=== PATIENT | female | born 1950 | race Caucasian/White ===

== ENCOUNTER 2016-10-16 12:41 | Inpatient (IN) | payer MEDICARE, OTHER ==
[~2016-10-16] VITALS: Ht 167.6 cm; Wt 67.8 kg
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
[~2016-10-16 12:41] MED LIST: ABILIFY10 MG PO; AMOXIL500 MG PO; ARISTADA662 MG/2.4 IM; BRIN10TA PO; CEFUROXIME AXE250 MG PO; CLONAZEPAM1 MG PO; ESKALITH300 M1 PO; INVEGA6 MG PO; KLONOPIN1 MG PO; LITHIUM CARBON300 MG PO; LITHIUM PO; OLANZAPINE5 MG PO; VITAMIN D50000 I3 PO; VRAYLAR PO
[2016-10-16 12:55] VITALS: BP 156/88
[2016-10-16] MEDS ORDERED: LITHIUM CARB300 MG PO (13:02)
[2016-10-16 13:26] LABS: BILIRUBIN NEGATIVE (NEGATIVE); BLOOD TRACE-INTACT (NEGATIVE); CLARITY SL CLOUDY (CLEAR); COLOR YELLOW (YELLOW); GLUCOSE NEGATIVE (NEGATIVE); KETONE NEGATIVE (NEGATIVE); NITRITE NEGATIVE (NEGATIVE); PH 5.5 (5.0-9.0); PROTEIN NEGATIVE (NEGATIVE); UROBILINOGEN 0.2 E.U./dl (0.2-1.0)
[2016-10-16 13:27] LABS: LEUKO ESTERASE 1+ (NEGATIVE)
[2016-10-16 13:34] LABS: URINE AMPHETAMINES < 1000 (1000ng/ml); URINE BARBITURATES < 200 (200ng/ml); URINE COCAINE < 300 (300ng/ml)
[2016-10-16 13:36] LABS: URINE REFLEX COMMENT YES (NO)
[2016-10-16 13:37] LABS: BACTERIA 1+; EPITHELIAL CELLS 0-2; MUCOUS TRACE
[2016-10-16 13:57] LABS: BASO % 0.3 % (0.0-1.0); EOS # 0.1 10*3/uL (0.0-0.4); EOS % 0.8 % (1.0-4.0); HEMATOCRIT 49.8 % (37.0-47.0); HEMOGLOBIN 15.3 g/dl (12.0-16.0); LYMPH # 1.5 10*3/uL (1.3-4.4); LYMPH % 15.1 % (27.0-41.0); MEAN CELL VOLUME 101.6 fl (81.0-99.0); MEAN CORPUSCULAR HGB 31.2 pg (27.0-31.0); MEAN CORPUSCULAR HGB CONC 30.7 g/dl (33.0-37.0); MEAN PLATELET VOLUME 12.1 fl (9.6-12.3); MONO # 0.9 10*3/uL (0.1-1.0); MONO % 9.4 % (3.0-9.0); NEUT # 7.4 10*3/uL (2.3-7.9); NEUT % 74.2 % (47.0-73.0); PLATELET COUNT AUTOMATED 285 10*3/uL (130-400); WHITE BLOOD COUNT 9.9 10*3/uL (4.8-10.8)
[2016-10-16 14:18] LABS: BUN 18 mg/dl (7-24); CARBON DIOXIDE 30 mmol/L (21-32); CHLORIDE 116 mmol/L (98-107); EST GLOM FILT AFRICAN AMERICAN 42 ml/min; GLUCOSE 131 mg/dL (65-99); POTASSIUM 4.2 mmol/L (3.5-5.1); SODIUM 152 mmol/L (136-145)
[2016-10-16 14:30] LABS: TROPONIN I < 0.015 ng/ml (<0.5)
[2016-10-16 17:35] VITALS: BP 112/80
[2016-10-16] MEDS ORDERED: ARIPIPRAZOLE10 MG PO (17:48)
[2016-10-16] MEDS ORDERED: CLONAZEPAM1 MG PO (17:48)
[2016-10-16] MEDS ORDERED: OLANZAPINE5 MG PO (17:49)
[2016-10-16 20:00] VITALS: BP 135/75
[2016-10-17] VITALS: BP 104/58
[2016-10-17 00:45] LABS: CKMB 0.8 ng/ml (0.5-3.6); CPK 35 U/L (26-192)
[2016-10-17 00:46] LABS: TROPONIN I < 0.015 ng/ml (<0.5)
[2016-10-17 06:33] LABS: HEMOGLOBIN A1c 5.7 % (4.8-5.6)
[2016-10-17 06:37] LABS: BASO % 0.5 % (0.0-1.0); EOS # 0.2 10*3/uL (0.0-0.4); EOS % 2.1 % (1.0-4.0); HEMATOCRIT 44.3 % (37.0-47.0); HEMOGLOBIN 13.6 g/dl (12.0-16.0); LYMPH # 1.9 10*3/uL (1.3-4.4); LYMPH % 24.1 % (27.0-41.0); MEAN CELL VOLUME 101.4 fl (81.0-99.0); MEAN CORPUSCULAR HGB 31.1 pg (27.0-31.0); MEAN CORPUSCULAR HGB CONC 30.7 g/dl (33.0-37.0); MEAN PLATELET VOLUME 12.4 fl (9.6-12.3); MONO # 0.7 10*3/uL (0.1-1.0); MONO % 9.4 % (3.0-9.0); NEUT # 4.9 10*3/uL (2.3-7.9); NEUT % 63.4 % (47.0-73.0); PLATELET COUNT AUTOMATED 244 10*3/uL (130-400); RED BLOOD COUNT 4.37 10*6/uL (4.10-5.10); WHITE BLOOD COUNT 7.8 10*3/uL (4.8-10.8)
[2016-10-17 06:39] LABS: ALBUMIN 3.7 gm/dl (3.1-4.5); BILIRUBIN, TOTAL 0.4 mg/dl (0.2-1.0); CKMB 0.7 ng/ml (0.5-3.6); CPK 32 U/L (26-192); FREE T4 1.02 ng/dl (0.76-1.46); MAGNESIUM 2.5 mg/dL (1.5-2.1); PHOSPHOROUS 2.7 mg/dL (2.5-4.9); POTASSIUM 3.7 mmol/L (3.5-5.1)
[2016-10-17 06:44] LABS: THYROID STIM HORMONE (HS) 1.36 uIU/ml (0.358-4.75); TROPONIN I < 0.015 ng/ml (<0.5)
[2016-10-17 07:03] LABS: FOLIC ACID 8.5 ng/mL (>5.38)
[2016-10-17 07:23] LABS: INTERNATIONAL NORM RATIO 1.1 (2.0-3.5); PROTHROMBIN TIME 11.8 SECONDS (9.0-12.4)
[2016-10-17 08:00] VITALS: BP 126/70
[2016-10-17 12:00] VITALS: BP 148/67
[2016-10-17 12:22] LABS: CKMB 0.6 ng/ml (0.5-3.6); CPK 32 U/L (26-192)
[2016-10-17 12:23] LABS: TROPONIN I < 0.015 ng/ml (<0.5)
[2016-10-17 16:00] VITALS: BP 107/66
[2016-10-17 20:00] VITALS: BP 126/65
[2016-10-18] VITALS: BP 137/79
[2016-10-18 08:00] VITALS: BP 118/76
[2016-10-18 12:00] VITALS: BP 133/70
[2016-10-18] MEDS ORDERED: ABILIFY15 MG PO (12:16)
[2016-10-18] MEDS ORDERED: BRIN10TA PO (14:47)
[2016-10-18] MEDS ORDERED: ARISTADA662 MG/2.4 IM (14:52)
[2016-10-18] MEDS ORDERED: VITAMIN D50000 I3 PO (14:55)
[2016-10-29] MEDS ORDERED: ROZEREM8 MG PO (07:36)
[2016-10-29] MEDS ORDERED: ABILIFY15 MG PO (07:36)
[2016-10-29] MEDS ORDERED: ARISTADA662 MG/2.4 IM (07:36)
[2016-10-29] MEDS ORDERED: MIRTAZAPINE15 M2 PO (07:36)
[2016-10-29] MEDS ORDERED: VITAMIN D50000 I3 PO (07:36)
[2016-11-06] MEDS ORDERED: REMERON45 M1 PO (15:44)
[2016-12-01] MEDS ORDERED: ATIVAN1 MG PO (14:02)
[2016-12-03] MEDS ORDERED: ASPIRIN ADULT L81 M2 PO (17:17)
[2016-12-03] MEDS ORDERED: ELIQUIS5 M1 PO (17:17)
[2016-12-03] MEDS ORDERED: COREG3.125 MG PO (17:17)
[2016-12-03] MEDS ORDERED: SIMVASTATIN40 MG PO (17:17)
== END 2016-10-18 12:58 | disposition home health service (06) | DRG 682 ==
LOC: ED 12:41 → 4E 15:20 → EDHOLD 15:20 → 4E 16:36
PROVIDERS: Emergency Medicine; Hospitalist
DX: N17.0 Acute kidney failure with tubular necrosis (principal); G93.41 Metabolic encephalopathy; E87.0 Hyperosmolality and hypernatremia; N39.0 Urinary tract infection, site not specified; F31.9 Bipolar disorder, unspecified; F41.9 Anxiety disorder, unspecified; E55.9 Vitamin D deficiency, unspecified; E78.5 Hyperlipidemia, unspecified; Z98.890 Other specified postprocedural states; Z82.49 Family history of ischemic heart disease and other diseases of the circulatory system; Z79.899 Other long term (current) drug therapy

== ENCOUNTER 2017-06-26 15:18 | Emergency (ER) | payer MEDICARE, MEDICAID ==
[~2017-06-26] VITALS: Ht 167.6 cm; Wt 52.6 kg
[~2017-06-26 15:18] MED LIST changes: +ABILIFY15 MG PO; +ARIPIPRAZOLE10 MG PO; +ASPIRIN ADULT L81 M2 PO; +ATIVAN1 MG PO; +COREG3.125 MG PO; +ELIQUIS5 M1 PO; +LITHIUM CARB300 MG PO; +MIRTAZAPINE15 M2 PO; +REMERON45 M1 PO; +ROZEREM8 MG PO; +SIMVASTATIN40 MG PO
[2017-06-26 15:56] LABS: BASO # 0.1 10*3/uL (0.0-0.1); BASO % 0.4 % (0.0-1.0); EOS % 0.1 % (1.0-4.0); HEMATOCRIT 49.6 % (37.0-47.0); HEMOGLOBIN 15.9 g/dl (12.0-16.0); LYMPH # 1.9 10*3/uL (1.3-4.4); LYMPH % 15.7 % (27.0-41.0); MEAN CELL VOLUME 95.8 fl (81.0-99.0); MEAN CORPUSCULAR HGB 30.7 pg (27.0-31.0); MEAN CORPUSCULAR HGB CONC 32.1 g/dl (33.0-37.0); MEAN PLATELET VOLUME 12.3 fl (9.6-12.3); MONO # 1.2 10*3/uL (0.1-1.0); MONO % 9.5 % (3.0-9.0); NEUT # 9.1 10*3/uL (2.3-7.9); PLATELET COUNT AUTOMATED 235 10*3/uL (130-400); RED BLOOD COUNT 5.18 10*6/uL (4.10-5.10); RED CELL DISTRI WIDTH 14.2 % (0-14.5); WHITE BLOOD COUNT 12.2 10*3/uL (4.8-10.8)
[2017-06-26 16:13] LABS: ALBUMIN 4.7 gm/dl (3.1-4.5); ALKALINE PHOSPHATASE 160 U/L (45-117); BUN 30 mg/dl (7-24); CHLORIDE 113 mmol/L (98-107); CREATININE 1.71 mg/dL (0.55-1.02); POTASSIUM 4.3 mmol/L (3.5-5.1); SGOT/AST 21 IU/L (3-35); SGPT/ALT 19 U/L (12-78); SODIUM 146 mmol/L (136-145); TOTAL PROTEIN 8.2 gm/dL (6.4-8.2)
[2017-06-26 16:14] LABS: ETHYL ALCOHOL < 3.0 mg/dl (<3)
[2017-06-26 16:21] LABS: THYROID STIM HORMONE (HS) 0.701 uIU/ml (0.358-4.75)
[2017-06-26 16:24] LABS: ACETAMINOPHEN (TYLENOL) < 2.0 ug/ml (10-30)
[2017-06-26 18:11] VITALS: BP 118/81
[2017-06-26 19:24] LABS: BILIRUBIN NEGATIVE (NEGATIVE); BLOOD 1+ (NEGATIVE); CLARITY CLEAR (CLEAR); COLOR YELLOW (YELLOW); GLUCOSE NEGATIVE (NEGATIVE); KETONE NEGATIVE (NEGATIVE); LEUKO ESTERASE NEGATIVE (NEGATIVE); NITRITE NEGATIVE (NEGATIVE); PH 5.5 (5.0-9.0); UROBILINOGEN 0.2 E.U./dl (0.2-1.0)
[2017-06-26 19:31] LABS: BACTERIA 1+; EPITHELIAL CELLS 0-2
[2017-06-26 19:33] LABS: URINE AMPHETAMINES < 1000 (1000ng/ml); URINE BARBITURATES < 200 (200ng/ml); URINE BENZODIAZEPINES < 200 (200ng/ml); URINE CANNABINOIDS (THC) < 50 (50ng/ml); URINE COCAINE < 300 (300ng/ml); URINE METHADONE < 300 (300ng/ml); URINE OPIATES < 300 (300ng/ml)
[2017-06-26 19:38] LABS: URINE PHENCYCLIDINE < 25 (25ng/ml)
[2017-06-27] MEDS ORDERED: DITROPAN XL5 MG PO (15:02)
[2017-06-27] MEDS ORDERED: KEFLEX500 M1 PO (15:02)
== END 2017-06-27 13:35 | disposition home health service (06) ==
LOC: ED 15:18
PROVIDERS: Physician Assistant
DX: F23 Brief psychotic disorder (principal); E03.9 Hypothyroidism, unspecified; E78.5 Hyperlipidemia, unspecified; N18.9 Chronic kidney disease, unspecified; F31.9 Bipolar disorder, unspecified

== ENCOUNTER 2017-06-27 13:15 | Inpatient (IN) | payer MEDICARE, MEDICAID ==
[~2017-06-27] VITALS: Ht 167.6 cm; Wt 52.6 kg
--- NOTE | ~2017-06-27 | WRIGHTHP ---
[place], [place] PATIENT HISTORY AND PHYSICAL EXAM NAME: ORLY BABCOCK [facility] #: [id number] UNIT #: [id number] ROOM: 315 DOCTOR: EBER CROCKETT MD BIRTHDATE: [birth year] DOS: 06/28/2017 CHIEF COMPLAINT: "I started hearing voices. I have been just stressed out. I do not know what is happening"s HISTORY OF PRESENT ILLNESS: This is a 66-year-old white female who is well known to us due to multiple admissions to the psychiatric unit. The patient presented to the emergency room at [facility] with a chief complaint of being increasingly depressed and and hearing little people for the last couple of weeks. This despite the fact that the patient has been compliant with her Aristada and last received her dose of Aristada on June 11. She endorses consistent hallucinations, voices commenting constantly on what she is doing. The voices do keep her up at night and they interfere with her ability to enjoy life. She has noted poor sleep and appetite, energy, anhedonia, hopeless, helpless feelings, crying spells, and inability to cope. She is readmitted to the [facility] now to rule out further organic factors to attempt to stabilize on medication and to return to the least restrictive environment when psychiatrically stable. PAST MEDICAL HISTORY: Remarkable for chronic kidney disease, hyperlipidemia, hypothyroidism, pulmonary emboli, seizure disorder, vitamin D deficiency and a long history of schizoaffective disorder. MENTAL STATUS: The patient is alert and oriented with some time gaps. Mood does seem to be depressed with anxious overtones. She endorses consistent auditory hallucinations. She hears voices, they comment constantly on what she is doing. Memory has some gaps. DIAGNOSIS: Schizoaffective disorder. PLAN: Given the fact that she relapsed, well compliant with the Aristada, I will go ahead and discontinue it as this does not seem to be effective at preventing the psychosis from recurring. I will start Risperdal 1 mg twice daily. At this point, I will load with either Risperdal Consta or Invega Sustenna once I know she is tolerating the Risperdal well. I will start her on Remeron 15 mg at bedtime to deal with the depressive component, engage her in individual and alvarez milieu activity and determine the least restrictive environment to which she can be discharged back to. [place], [place] PATIENT HISTORY AND PHYSICAL EXAM NAME: ORLY BABCOCK UNIT #: [id number] ROOM: [facility] DOCTOR: EBER CROCKETT MD BIRTHDATE: [birth year] EBER CROCKETT MD CM:HISPHYS:PATIENT HISTORY AND PHYSICAL EXAMINATION 3 5 EBER CROCKETT MD 06/28/17915 interface
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
--- NOTE | ~2017-06-27 | PR ---
[place], [place] PROGRESS NOTE NAME: ORLY BABCOCK [facility] #: [id number] UNIT #: [id number] ROOM: 315 DOCTOR: RIGO FLORES BIRTHDATE: [birth year] DOS: 06/29/2017 CHIEF COMPLAINT: "Good morning." SUMMARY OF VISIT: The patient was assessed in her room where she engaged readily in conversation. Good eye contact. Her only voiced complaint is about her mouth. She stuck out her tongue. She has a little taste bud inflammations. I asked her if she had been eating a lot of acidic foods like tomatoes, she did state that she has been having eating a lot of citrus type foods, so she definitely has a little bit of those little taste bud blisters on the tip of her tongue, which she keeps rubbing across her teeth and causing more irritation. She also states that she has sores inside her mouth that sometimes bleed and is making her uncomfortable. I did discuss with nursing. I asked them to follow up with the hospitalist to see if there is any kind of swish and spit or swish and swallow that we can use to kind to give her a little bit of comfort. MENTAL STATUS: Alert and oriented to person, place, I do not know about time. She definitely does have some time gaps. Mood, it seems depressed, but I do not see any kind of anxious overtones. Her affect is flat, blunted. She denies hallucinations with me, but nursing states that she did tell them that she still does see some short people occasionally or shapes now. So there has been some improvement. She is complaining of the EPS, extraperitoneal symptoms, shaking since the medication change. I did have her hold her hands out, I visually could not see any tremors or anything like that. I had her hold my hands, I could not feel anything like that. I wanted to keep an eye on it before changing a whole bunch of meds on her at this point in time, since she has significant medication adjustments within the last 24-48 hours. She does seem to be responding to the Risperdal per nursing that her hallucinations are not as concrete as they were before, they are more shadows, shapes that kind of stuff. She states that her sleep was poor last night, but did state that the floor was extra loud last night and that she was not really concerned about that. PLAN: Again, I am going keep her medications the way they are right now, I want the hospitalist for followup on her regarding the sores in her mouth, the blisters on her tongue, see if there is any kind swish and swallow or anything that we can do to help out with that discomfort. Dr. Wilson restarted her on her Risperdal. She was compliant with her Aristada, but it just was not effective, so he discontinued it. The plan is to either load her with Risperdal Consta or Invega Sustenna once we know that for sure that she is tolerating her Risperdal to see how she does over the next 24 hours. We will engage in individual and alvarez milieu therapy and go from there. [place], [place] PROGRESS NOTE NAME: ORLY BABCOCK UNIT #: [id number] ROOM: [facility] DOCTOR: RIGO FLORES BIRTHDATE: [birth year] TODD FLORES CNP CM:TARA [phone] RIGO FLORES 07/01/17705 interface
--- NOTE | ~2017-06-27 | CON ---
[place], [place] REPORT OF CONSULTATION NAME: ORLY BABCOCK [facility] #: [id number] UNIT #: [id number] ROOM: 315 DOCTOR: KING STALLINGS ED.D (JL) BIRTHDATE: [birth year] DOS: 07/01/2017 HISTORY OF PRESENT ILLNESS: The patient is a 66-year-old female referred by Dr. Wilson for competency evaluation. At the present time, this patient is on the [facility] at [facility]. She is and has two children. Her medical history is pertinent for chronic kidney disease, schizoaffective disorder, hyperlipidemia, hypothyroidism, pulmonary embolism, seizure disorder, and vitamin D deficiency. Her psych meds include Invega Sustenna, Exelon, Artane, and Pamelor. This patient was awake, alert and oriented in all 3 spheres. I have known this patient for many years and she recognized me immediately and was able to converse with no difficulty. Her physical condition has deteriorated over the years, but overall she does fairly well. She is clearly competent to make informed healthcare decisions at this time. She states she does reside with her and plans on returning there upon discharge. DIAGNOSES: Schizoaffective disorder. RECOMMENDATIONS: In my opinion, this patient is competent to make informed healthcare decisions. Thank you very much for this consult. KING STALLINGS ED.D CM:CONSTR:REPORT OF CONSULTATION 1057 07/01/17 2253 interface EBER WILSON MD
--- NOTE | ~2017-06-27 | PR ---
[place], [place] PROGRESS NOTE NAME: ORLY BABCOCK UNIT #: [id number] ROOM: 315 DOCTOR: EBER CROCKETT MD BIRTHDATE: [birth year] DOS: 06/30/2017 CHIEF COMPLAINT: "Did you see those little people out here?, they were keeping me up at night." SUMMARY OF THE VISIT: The patient was sitting at the edge of her bed. She had just gotten dressed and was getting ready to start the day. She engaged in conversation, reporting to me that she did not sleep well because there were people outside her room, little ones, making noise. Nurses concur that she was very consistent in this complaint throughout the evening last night and attempts to redirect were not met with much success. The patient did refuse her Remeron, stating that in the past when she took it she had significant side effects. She is compliant with all other aspects of her care. MENTAL STATUS: She is alert and oriented with some time gaps. Mood does still seem to be labile. Affect at times is inappropriate. She is grossly psychotic and delusional. She does have some term memory gaps. PLAN: I will maintain her current dose of Risperdal. I still may load her with Invega Sustenna given her episodic compliance with medicine. I will discontinue Remeron in lieu of Pamelor. We will obtain another consult with Dr. Villalobos. The patient has repeatedly been deemed incompetent, has been placed in a long term and has done so well with careful supervision, then the guardianship application is overturned, she returns home and she decompensates within months. This is such a repeated pattern that I wonder if there is something we can do to prevent this secular negative pattern from continuing. We will engage in individual and alvarez milieu activity with the plan to discharge to the least restrictive environment when stable. EBER CROCKETT MD CM:PNTRANS 2 40 EBER CROCKETT MD 06/30/17 1040 interface
--- NOTE | 2017-06-27 13:50 | NUR ---
PT ARRIVED ON THE UNIT VIA WHEELCHIAR WITH RN, SECURITY AND ESCORTING PT. PT ALERT TO PERSON,PLACE AND TIME. PT REPORTS AUDITORY AND VISUAL HALLUCINATIONS. WHILE COMPLETEING PT ADMISSION ASSESSMENT, PT LOOKS OUT THE WINDOW OF THE QUIET ROOM AND STATES "THOSE MED AREN'T ALLOWED IN MY ROOM ARE THEY?" WHEN QUESTIONED PT STATED "THOSE MEN SITTING OUT THERE ON THE SUITCASES?" PRESENTED REALITY PT WITH MINIMAL SUCCESS. PT DENIES ANY HOMICIDAL/SUICIDAL THOUGHTS. PT AMBULATORY THROUGHTOUT UNIT, GAIT STEADY. PT CONTINENT OF BOWEL AND BLADDER.
[2017-06-27 13:57] VITALS: BP 108/78
[2017-06-27 14:25] VITALS: BP 108/78
[2017-06-27] MEDS ORDERED: KEFLEX500 M1 PO (15:02)
[2017-06-27] MEDS ORDERED: DITROPAN XL5 MG PO (15:02)
--- NOTE | 2017-06-27 15:06 | NUR ---
ORLY BABCOCK a 66 year old F admitted via wheel chair from the EMERGENCY ROOM as a voluntary admission. Arrived on unit at 1350. ALLERGIES: NKA. Vital signs are: 97.7-98-18 108/78. The client signed the following forms with stated understanding: Authorization For The Release of Medical Information, Clothing List, Consent to Voluntary Admission and Hospitalization, Consent and Release Forms/Receipt of Rights, Acknowledgement of Advance Directive Information, Behavioral Health Consent Form, and Informed Consent of Medications. Admitted under the services of Dr. BON CORRAL,[facility]. A search was conducted and hazardous articles were removed. Client was oriented to the unit. ARMANI HORTON
--- NOTE | 2017-06-27 15:15 | NUR ---
PT DAUGHTER RACHELLE CALLED IN REQUESTING TO SPEAK WITH PT. WHEN ASKED IF SHE WOULD ACCEPT THE PHONE CALL PT STATED "I DON'T WANT TO TALK TO HER RIGHT NOW BECAUSE I HAVEN'T TALKED TO HER IN A LONG TIME AND IT UPSETS ME TO TALK TO HER". RACHELLE REQUESTING VISITING HOURS, NOTIFIFED PT OF DAUGHTER REQUESTING TO VISIT LATER PT STATED " THE REASON I DON'T TALK TO HER IS BEACUSE THE GAME ATTENDANT IN [place] DOESN'T LIKE HER." PT UNABLE TO ANSWER IF SHE WOULD LIKE TO VISIT WITH HER DAUGHTER LATER TODAY, WILL RE-APPROACH BEFORE VISITING HOURS.
--- NOTE | 2017-06-27 15:35 | NUR ---
ON UNIT TO ASSESS PT.
[2017-06-27 20:16] VITALS: BP 131/83
--- NOTE | 2017-06-27 21:16 | NUR ---
PATIENT COOPERATIVE AND PLEASANT WITH STAFF. PATIENT MEDICATION COMPLIANT. VOICES NO COMPLAINTS OF PAIN OR DISCOMFORT AT THIS TIME
--- NOTE | 2017-06-28 03:35 | NUR ---
24 HR chart check completed.
[2017-06-28 06:55] LABS: BASO % 0.1 % (0.0-1.0); EOS # 0.1 10*3/uL (0.0-0.4); EOS % 1.2 % (1.0-4.0); HEMOGLOBIN 14.6 g/dl (12.0-16.0); LYMPH # 1.3 10*3/uL (1.3-4.4); LYMPH % 16.9 % (27.0-41.0); MEAN CELL VOLUME 96.4 fl (81.0-99.0); MEAN CORPUSCULAR HGB 30.6 pg (27.0-31.0); MEAN CORPUSCULAR HGB CONC 31.7 g/dl (33.0-37.0); MEAN PLATELET VOLUME 12.7 fl (9.6-12.3); MONO # 0.7 10*3/uL (0.1-1.0); MONO % 8.7 % (3.0-9.0); NEUT # 5.7 10*3/uL (2.3-7.9); NEUT % 72.8 % (47.0-73.0); RED BLOOD COUNT 4.77 10*6/uL (4.10-5.10); WHITE BLOOD COUNT 7.8 10*3/uL (4.8-10.8)
[2017-06-28 06:59] LABS: PLATELET COUNT AUTOMATED 156 10*3/uL (130-400)
[2017-06-28 07:21] LABS: ALBUMIN 3.8 gm/dl (3.1-4.5); ALKALINE PHOSPHATASE 150 U/L (45-117); BUN 24 mg/dl (7-24); CHLORIDE 116 mmol/L (98-107); CHOLESTEROL 147 mg/dL (<200); CREATININE 1.07 mg/dL (0.55-1.02); HDL CHOLESTEROL 28 mg/dl (40-60); LDL CHOLESTEROL 95 mg/dL (9-159); POTASSIUM 4.1 mmol/L (3.5-5.1); SGOT/AST 25 IU/L (3-35); SGPT/ALT 23 U/L (12-78); SODIUM 150 mmol/L (136-145); TOTAL PROTEIN 7.4 gm/dL (6.4-8.2); TRIGLYCERIDES 121 mg/dl (<150); VLDL CHOLESTEROL 24 mg/dL (6-40)
[2017-06-28 07:28] LABS: THYROID STIM HORMONE (HS) 0.932 uIU/ml (0.358-4.75)
[2017-06-28 08:59] VITALS: BP 123/72
--- NOTE | 2017-06-28 09:03 | NUR ---
CONTACTED AT [phone] REGARDING PT ABNORMAL LABS FOR THIS AM. STATED "YES WE SAW THAT, WE MAY NEED TO PUT AN IV BACK IN HER". NO ORDERS RECEIVED AT THIS TIME.
--- NOTE | 2017-06-28 11:31 | NUR ---
ON UNIT TO ASSESS PT.
--- NOTE | 2017-06-28 13:43 | NUR ---
PT ALERT TO PERSON,PLACE,TIME AND SITUATION. PT MED COMPLIANT WIHTOUT DIFFICULTY. MED EDUCATION PROVIDED. PT MOOD IS DEPRESSED. PT CALM, RESTLESS AT TIMES, PACING THE HALLS. PT WITHDRAWN, MINIMAL INTERACTION WITH STAFF AND PEERS. PT DENIES ANY HOMICIDAL/SUICIDAL THOUGHTS. WHEN ASKED IF SHE IS SEENG ANYTHING OR HEARING VOICES, PT STATES "YES BUT I'M NOT ABLE TO MAKE OUT WHAT THEY ARE, THEY ARE JUST SHAPES." PT DENIES HEARING ANY VOICES AT THIS TIME. PT AMBULATORY THROUGHOUT UNIT, GAIT STEADY. PT CONTINENT OF BOWEL AND BLADDER. PT CONSUMED 75% OF BREAKFAST AND 100% OF LUNCH. PLAN IS TO ENCOURAGE PT TO VOICE ANY HALLUCIANTIONS OR DELUSIONS, PRESENT REALITY TO PT WITH EACH INTERACTION, MONITOR PT BEHAVIORS ON Q15 MN SAFTEY CHECKS.
[2017-06-28 20:00] VITALS: BP 107/60
--- NOTE | 2017-06-28 20:10 | NUR ---
PATIENT IN ROOM AND VOICED THAT SHE HAD AN EPISODE OF BEING SHAKY ON PREVIOUS SHIFT. SHE STATED THAT IT DIDN'T LAST LONG, BUT IT WAS NEW FOR HER. PATIENT SAID SHE WANTED TO TALK TO THE DOCTOR WHEN HE CAME BACK IN. PATIENT MEDICATION COMPLIANT. VOICES NO COMPLAINTS OF PAIN OR DISCOMFORT AT THIS TIME
--- NOTE | 2017-06-29 04:15 | NUR ---
24 HR chart check completed.
--- NOTE | 2017-06-29 05:46 | NUR ---
Q 15 MINUTE CHECKS MAINTAINED. SLEPT > 8 HRS THIS SHIFT
[2017-06-29 07:00] LABS: ALBUMIN 3.4 gm/dl (3.1-4.5); ALKALINE PHOSPHATASE 133 U/L (45-117); BUN 21 mg/dl (7-24); CHLORIDE 113 mmol/L (98-107); POTASSIUM 3.4 mmol/L (3.5-5.1); SGOT/AST 30 IU/L (3-35); SGPT/ALT 27 U/L (12-78); SODIUM 146 mmol/L (136-145); TOTAL PROTEIN 6.6 gm/dL (6.4-8.2)
[2017-06-29 08:05] VITALS: BP 117/76
--- NOTE | 2017-06-29 08:10 | NUR ---
UPDATED DR. MUNOZ AT [phone] REGARDING PT LABS. PER CONTINUE TO ENCOURAGE PO INTAKE OF FLUIDS. NO FURTHER ORDERS AT THIS TIME.
--- NOTE | 2017-06-29 10:55 | NUR ---
ON UNIT TO ASSESS PT.
--- NOTE | 2017-06-29 17:54 | NUR ---
PT ALERT TO PERSON,PLACE AND TIME. PT MED COMPLIANT WITHOUT DIFFICULTY. PT MOOD IS STABLE. WHEN ASKED IF PT IS HAVING ANY VISUAL HALLUCINATIONS, PT STATED "I'M SEEING COLORS, LINES AND SHAPES." PT DENIES HEARING VOICES AT THIS TIME. NO DELUSIONS NOTED. PT DENIES ANY HOMICIDAL/SUICIDAL THOUGHTS. PT AMBULATORY THROUGHOUT UNIT, GAIT STEADY. PT CONTINENT OF BOWEL AND BLADDER. PLAN IS TO MONITOR PT BEAHVIORS ON Q15 MIN SAFETY CHECKS, ENCOURAGE PT TO VOICE ANY HALLUCINATIONS OR DELUSIONS, ENCOURAGE PT TO PARTICIPATE IN GROUPS/ACTIVITIES.
[2017-06-29 20:00] VITALS: BP 136/78
--- NOTE | 2017-06-29 21:50 | NUR ---
PT WAS COMPLIANT WITH ALL HS MEDICATIONS EXCEPT REMERON. STATED THE LAST TIME SHE TOOK IT, IT DIDN'T AGREE WITH HER & SHE WOKE UP IN A FUNNY MOOD.
--- NOTE | 2017-06-29 22:04 | NUR ---
24 HR chart check completed.
--- NOTE | 2017-06-30 06:23 | NUR ---
PT HAS BEEN OBSERVED ON Q 15 MIN CHECKS & HAS SLEPT QUIETLY THROUGHOUT THE SHIFT PAST 2300.
[2017-06-30 07:01] LABS: ALKALINE PHOSPHATASE 150 U/L (45-117); BUN 19 mg/dl (7-24); CHLORIDE 117 mmol/L (98-107); CREATININE 0.96 mg/dL (0.55-1.02); MAGNESIUM 2.2 mg/dL (1.5-2.1); POTASSIUM 4.1 mmol/L (3.5-5.1); SGOT/AST 35 IU/L (3-35); SGPT/ALT 34 U/L (12-78); SODIUM 150 mmol/L (136-145); TOTAL PROTEIN 7.3 gm/dL (6.4-8.2)
[2017-06-30 07:52] VITALS: BP 136/82
--- NOTE | 2017-06-30 11:36 | NUR ---
Exercise/June Facts and Trivia Exercise helps with mobility,circulation and concentration to stay on task. Trivia also helps with concentration, thinking and socialization Patient did attend group as well as participated. Patient followed instruction during exercise well but during trivia was confused with questions. But she shared several memories of june.
--- NOTE | 2017-06-30 14:22 | NUR ---
PHYSICAL THERAPY PAtient evaluated on 3, full evaluation to follow. Continue with PT as per plan of care with fall and decreased balance precautions. Home with 21/04 family assist and complete home health services with progression to out patient PT prn. PAtient is moderate compelxiuty via chart rview, tests and evaluation [id number]. thank you for this referral. Racheal Stevens ,PT
--- NOTE | 2017-06-30 15:37 | NUR ---
DR STALLINGS NOTIFIED OF CONSULT FOR COMPETENCY EVAL.
--- NOTE | 2017-06-30 15:57 | NUR ---
Occupational Therapy evaluation completed on 3 this date with full eval to follow.Precautions include 3N, recent delusional behavior, but none during the evaluation, slow ROP, low complexity level 96300. Recomemmend return home with w/ supervision. Thank you for this referral. Sonia Rodarte OTR/l
--- NOTE | 2017-06-30 17:33 | NUR ---
DR. AGUILAR ON UNIT TO SEE PATIENT.
[2017-06-30 20:00] VITALS: BP 135/72
--- NOTE | 2017-06-30 22:22 | NUR ---
24 HR chart check completed.
--- NOTE | 2017-07-01 05:04 | NUR ---
PT HAS SLEPT QUIETLY THROUGHOUT THE SHIFT PAST 2229 WITH 1 BRIEF AWAKENING TO GO TO THE BATHROOM.
[2017-07-01 07:44] LABS: BUN 18 mg/dl (7-24); CHLORIDE 116 mmol/L (98-107); CREATININE 1.07 mg/dL (0.55-1.02); POTASSIUM 4.3 mmol/L (3.5-5.1); SODIUM 150 mmol/L (136-145)
[2017-07-01 08:47] VITALS: BP 140/87
--- NOTE | 2017-07-01 10:53 | NUR ---
ON UNIT TO ASSESS PATIENT. PER , PATIENT IS COMPETENT.
--- NOTE | 2017-07-01 11:35 | NUR ---
INVEGA SUSTENNA 234MG GIVEN TO LEFT DELTOID AT THIS TIME PER ORDERS WITHOUT DIFFICULTY. PT TOLERATED WELL.
--- NOTE | 2017-07-01 11:56 | NUR ---
MANOLO SPRING ON UNIT TO ASSESS PATIENT. MADE AWARE OF NA LEVEL THIS MORNING. STATES WILL ENTER NEW ORDERS.
--- NOTE | 2017-07-01 11:59 | NUR ---
PHYSICAL THERAPY Mrs seen this AM 1:1 for her therapy session, and did very well. All transfrs were were CGA X 1, no LOB. Gait total 180' X 2, one sitting rest and CG X 1, no LOB. Working in gait balance with gait back wards, right and left side stepping, 360 turn with MIN PAPER GRADER X 1. End with act Ex to bilateral LE is sitting working all planes X 20 reps each, treatment time 26 min. MICHAELA ABAD BALLISTICS PROFESSOR.
--- NOTE | 2017-07-01 13:37 | NUR ---
Exercise/Bad Jokes and Slogans Benefits: Mobility,Flexability,Circulation,socialization,cognative skills Patient did attend group as well as participate. Patient followed along during exercise and stayed on task. Patient was some what quiet and withdrawn during the joke and slogans portion of group. Patient did attempt to answer questions several times showing confusion,redirected easily back to topics. This group helped the patient in her treatment goals to decrease H/I and stayin present day reality,with socialization
--- NOTE | 2017-07-01 16:19 | NUR ---
PT ALERT AND ORIENTED WITH PERIODS OF CONFUSIONS AND MEMORY GAPS NOTED. MOOD IS DEPRESSED WITH FLAT AFFECT. DENIES ANY HALLCINATIONS THIS SHIFT, STATES " NOT TODAY." UPON INTERACTIONS WITH PATIENT, PARANOID DELUSIONS HAVE BEEN NOTED. VERBALIZING THERE ARE "MEN TRYING TO KIDNAP ME AND HURT ME." REALITY PRESENTED WITH MODERATE EFFECT. REORIENTED WITH GOOD EFFECT. CALM AND COOPERATIVE WITH STAFF. ATTENDING AND PARTICIPATING IN GROUP THERAPIES ALL THROUGHOUT THE DAY. MEDICATION COMPLIANT WITHOUT DIFFICULTY. APPETITE GOOD FOR MEALS. IV RUNNING TO LEFT ARM AT THIS TIME WITHOUT DIFFICULTY.
[2017-07-01 20:18] VITALS: BP 122/76
--- NOTE | 2017-07-01 23:28 | NUR ---
24 HR chart check completed.
--- NOTE | 2017-07-02 05:05 | NUR ---
PT HAS SLEPT QUIETLY THROUGHOUT THE SHIFT PAST 2229 WITH 1 BRIEF AWAKENING TO GO TO THE BATHROOM. CONTINENT OF URINE. IV FLUIDS COMPLETED @ 0400.
[2017-07-02 06:54] LABS: BASO % 0.4 % (0.0-1.0); EOS # 0.2 10*3/uL (0.0-0.4); HEMATOCRIT 47.2 % (37.0-47.0); LYMPH # 2.1 10*3/uL (1.3-4.4); MEAN CELL VOLUME 95.7 fl (81.0-99.0); MEAN CORPUSCULAR HGB 30.4 pg (27.0-31.0); MEAN CORPUSCULAR HGB CONC 31.8 g/dl (33.0-37.0); MEAN PLATELET VOLUME 12.9 fl (9.6-12.3); MONO # 0.8 10*3/uL (0.1-1.0); MONO % 9.4 % (3.0-9.0); NEUT % 61.7 % (47.0-73.0); PLATELET COUNT AUTOMATED 184 10*3/uL (130-400); RED BLOOD COUNT 4.93 10*6/uL (4.10-5.10); RED CELL DISTRI WIDTH 14.3 % (0-14.5); WHITE BLOOD COUNT 8.1 10*3/uL (4.8-10.8)
[2017-07-02 07:25] LABS: BUN 18 mg/dl (7-24); CHLORIDE 113 mmol/L (98-107); CREATININE 0.95 mg/dL (0.55-1.02); POTASSIUM 3.7 mmol/L (3.5-5.1); SGOT/AST 26 IU/L (3-35); SGPT/ALT 34 U/L (12-78); SODIUM 146 mmol/L (136-145); TOTAL PROTEIN 7.4 gm/dL (6.4-8.2)
[2017-07-02 07:26] LABS: ALKALINE PHOSPHATASE 157 U/L (45-117)
[2017-07-02 08:02] VITALS: BP 134/80
--- NOTE | 2017-07-02 10:41 | NUR ---
PHYSICAL THERAPY Abbie seen this AM 1:1 for her therapy treatment, Pt was up in the day room. All transfers were CG X 1, no LOB. Gait total 185' X 2, with one sitting rest Pt said that she was getting tired. Working in gait balance with gait backwards, right and left side stepping, 360 turn with cueing for each with MOD RECEPTION X 1. Gait Pt into her bathroom, followed by up in the day room and end with act Ex to bilateral LE with verbal cueing of marching, LAQ's and ankle pumps working in 20 reps each, treatment time 28 min. MICHAELA ABAD AUTOMOBILE RACER.
--- NOTE | 2017-07-02 10:50 | NUR ---
07/01/17 Afternoon Cristy Clancy: Positive future Benefits; Self Esteem, socialization,cognative skills Patient did attend group but only participated when prompted.Patients focused on coloring her picture. Patient was redirected several times which was effective for a short time. Patient was also confused at times and would be reminded of what group was about. This was important in helping this patient with reality. no H/I was noted during group
--- NOTE | 2017-07-02 10:54 | NUR ---
SYLVIE ALLENNP ON UNIT TO ASSESS PT.
--- NOTE | 2017-07-02 13:01 | NUR ---
Exercise/Positivity This will help patient with her treatment plan to stay oriented to reality and socializing Patinted did attend group and participated as well. Patient stayed on task as well as stayed focused,joining in and verbalizing what to do to cope and keep positive. Patient needed no prompting,1:1 or redirection during group
--- NOTE | 2017-07-02 13:35 | NUR ---
PT APPROACHES NURSES STATING WHEN ASKED WHAT IS WORNG PT STATED "I'M AFRAID OF THAT REAL BIG KEN." ADVISED PT THAT HE IS IN HIS ROOM SO SHE IS SAFE TO GO INTO THE DINING ROOM TO SIT. PT STATED "BUT I HAVE TO PEE AND I DON'T WANT TO WALK DOWN THERE BY MYSELF." PT ESCORTED TO THE BATHROOM BY STAFF. NO FURTHER ISSUES NOTED.
--- NOTE | 2017-07-02 18:32 | NUR ---
PT ALERT TO PERSON,PLACE AND TIME. PT MED COMPLIANT WITHOUT DIFFICULTY. PT ANXIOUS AT TIMES. PT CALM, ISOALTIVE AT TIMES, ONLY SPEAKING WHEN SPOKEN TO. NO RESPONSE TO INTERNAL STIMULI THIS SHIFT, PT DENIES ANY HALLUCINATIONS OR DELUSIONS. PT DENIES ANY HOMICIDAL/SUICIDAL THOUGHTS. PT AMBULATORY, GAIT SLOW AND STEADY. PT CONTINENT OF BOWEL AND BLADDER. PLAN IS TO MONITOR PT BEHAVIORS ON Q15 MIN SAFTEY CHECKS, ENCOURAGE PT TO VOICE ANY HALLUCINATIONS OR DELUSIONS TO STAFF, PRESENT REALITY TO PT WITH EACH INTERACTION.
[2017-07-02 20:49] VITALS: BP 141/76
--- NOTE | 2017-07-03 04:34 | NUR ---
24 HR chart check completed.
--- NOTE | 2017-07-03 06:54 | NUR ---
PT SLEPT THROUGHOUT NIGHT WITH OUT INTURRUPTION TOTAL 8 HOURS. SOCALIZED WELL WITH PEER AT HS DENYING HALLUCINATIONS AT THIS TIME. MED COMPLIANT WITH OUT COAXING, IMPROVING MOOD LABILITY. CONTINIUE MED EDUCATION AND COPING SKILLS AT THIS TIME.
--- NOTE | 2017-07-03 07:56 | NUR ---
07/02/17 Afternoon BINGO Benefits patients with treatment plan goal to socialize, stay in present reality and participate in group Patient did attend group as well as participate. Patient is quiet and withdrawn,speaking out occasionaly. Patient acts as if she has no facial emotion,unsure how patient is reacting to things unless shes asked. Patient did very well playing [employer],staying on task
[2017-07-03 08:02] VITALS: BP 128/72
--- NOTE | 2017-07-03 08:49 | NUR ---
PHYSICAL THERAPY Abbie seen this AM 1:1 for her therapy session, Pt up in the day room. Transfers were independent, Gait total 185' X 2, one sitting rest and not as tired today as yesterdays gait. Working in gait balance with singel leg stand X 2, gait backwards, right and left side stepping, 360 turn, with MOD PROJECT INTERN X 1. End with act Ex to bilateral LE in sitting working all planes X 20 reps each with cueing for each Ex. Pt back up in the day room, treatment time 27 min. MICHAELA ABAD CORE DRIER.
[2017-07-03 09:29] LABS: BASO % 0.4 % (0.0-1.0); EOS # 0.1 10*3/uL (0.0-0.4); EOS % 0.9 % (1.0-4.0); HEMATOCRIT 44.9 % (37.0-47.0); HEMOGLOBIN 14.7 g/dl (12.0-16.0); LYMPH # 1.1 10*3/uL (1.3-4.4); LYMPH % 13.6 % (27.0-41.0); MEAN CELL VOLUME 96.6 fl (81.0-99.0); MEAN CORPUSCULAR HGB 31.6 pg (27.0-31.0); MEAN CORPUSCULAR HGB CONC 32.7 g/dl (33.0-37.0); MEAN PLATELET VOLUME 12.7 fl (9.6-12.3); MONO # 0.6 10*3/uL (0.1-1.0); MONO % 6.8 % (3.0-9.0); NEUT # 6.4 10*3/uL (2.3-7.9); NEUT % 77.9 % (47.0-73.0); PLATELET COUNT AUTOMATED 182 10*3/uL (130-400); RED BLOOD COUNT 4.65 10*6/uL (4.10-5.10); RED CELL DISTRI WIDTH 13.9 % (0-14.5); WHITE BLOOD COUNT 8.2 10*3/uL (4.8-10.8)
[2017-07-03 10:18] LABS: ALBUMIN 3.9 gm/dl (3.1-4.5); CREATININE 1.12 mg/dL (0.55-1.02); POTASSIUM 3.6 mmol/L (3.5-5.1); TOTAL PROTEIN 7.3 gm/dL (6.4-8.2)
--- NOTE | 2017-07-03 10:23 | NUR ---
PATIENT ASSISTED WITH HYGIENE AND DRESSING THIS AM. ALERT AND ORIENTED WITH PERIODS OF CONFUSION. DENIES ANY HALLUCINATIONS OR DELUSIONS. DENIES ANY SI/HI. STATES SHE IS FEELING BETTER. MEDICATION COMPLIANT WITHOUT DIFFICULTY. SIGN PLACE OUTSIDE OF ROOM FOR EASY IDENTIFICATION DUE TO HER FORGETTING WHICH ROOM IS HERS. NO BEHAVIORS NOTED. PLEASANT AND COOPERATIVE WITH STAFF. MOOD STILL MILDLY DEPRESSED WITH FLAT AFFECT. HAS BEEN SMILING AND INTERACTING POSITIVELY WITH PEERS THIS MORNING IN DAY ROOM. PARTICIPATING IN GROUP THERAPY THIS AM.
--- NOTE | 2017-07-03 12:09 | NUR ---
PATIENT VOICING PARANOID DELUSIONS THAT SOMEONE BECAUSE OF HER. EMOTIONAL SUPPORT PROVIDED WITH MINIMAL EFFECT. REFUSED LUNCH AFTER MULTIPLE ATTEMPTS. PATIENT WENT BACK TO ROOM TO LAY DOWN AND REST.
--- NOTE | 2017-07-03 13:26 | NUR ---
Exercise/Choices/Trivia This benefits the patient in her treatment plan goal,staying oriented to reality,socializing Patient did attend group as well as participated. Patient was dressing so missed the exercise portion of group but came to the latter part of group. Patient was quiet but did talk with others interacting with no apparent issues
[2017-07-03 20:25] VITALS: BP 130/74
--- NOTE | 2017-07-04 04:27 | NUR ---
24 HR chart check completed.
--- NOTE | 2017-07-04 07:28 | NUR ---
PT SLEPT THROUGHOUT NIGHT WITH NO INTURRUPTION. ISOLATIVE TO ROOM, DENIES HALLUCINATIONS BUT BEGINING TO DISPLAY ODD BEHAVIOR PICKING AT GROUND WITH HUNCHED OVER GAIT. ISOLATIVE TO ROM, REFUSING 1-1 SUSPICIOUS OF STAFF AND PEERS BUT MED COMPLIANT WITH COAXING. ALERT TO PERSON ONLY.
[2017-07-04 08:00] VITALS: BP 120/82
--- NOTE | 2017-07-04 08:01 | NUR ---
07/03/17 Afternoon BRUCE This group is helpful for patient to reach her treatment goal of socialization,staying oriented to reality Patient did attend group as well as participated. Patient does interact with others occasionally as she did in this group. Patient stayed on task and did laugh with others when joking with each other
--- NOTE | 2017-07-04 10:03 | NUR ---
PHYSICAL THERAPY Abbie seen this AM 1:1 for her therapy and improving but just needing cueing for all that we do. All transfers were CG X 1, no LOB. Gait total 200' X 2, CGA X 1, one sitting rest. Working in turns, stop/start gait slow but no LOB CGA X 1. End with going over her act Ex to bilateral LE of marching, LAQ's, and ankle pumps. Pt up in the day room at this time. MICHAELA ABAD DEVELOPMENT ENGINEER.
--- NOTE | 2017-07-04 16:39 | NUR ---
PT OBSERVED LEANING TO THE RIGHT MOST OF THE SHIFT. LEANING HAS WORSENED. SYLVIE LI NP NOTIFIED STATES WILL BE UP TO SEE PT.
--- NOTE | 2017-07-04 16:49 | NUR ---
VITALS TAKEN AT THIS TIME AND FOLLOWS: 99.3 O, 142/84, 18, 94% RA, BSG 125. AT BEDSIDE TO ASSESS PT, UPDATED ON PT VITALS, STATES WILL ENTER NEW ORDERS.
[2017-07-04 16:51] VITALS: BP 142/84
--- NOTE | 2017-07-04 16:55 | NUR ---
STATES PT TO BE DISCHARGED TO ICU AT THIS TIME TO CHANGE IN STATUS. NURSING SUPERANNUATION CLERK NOTIFIED. NOTIFIED, DISCHARGE ORDERS RECEIVED. NURSING SUPERANNUATION CLERK CALLED BACK AND STATES PT WILL GO TO ICU BED 3. KING, ON UNIT, UPDATED ON PT STATUS AND CURRENT SITUATION.
[2017-07-04 17:21] LABS: BASO % 0.2 % (0.0-1.0); HEMOGLOBIN 14.8 g/dl (12.0-16.0); LYMPH # 1.2 10*3/uL (1.3-4.4); LYMPH % 8.2 % (27.0-41.0); MEAN CELL VOLUME 94.5 fl (81.0-99.0); MEAN CORPUSCULAR HGB 30.4 pg (27.0-31.0); MEAN CORPUSCULAR HGB CONC 32.2 g/dl (33.0-37.0); MEAN PLATELET VOLUME 12.3 fl (9.6-12.3); MONO # 1.3 10*3/uL (0.1-1.0); MONO % 9.2 % (3.0-9.0); NEUT # 11.5 10*3/uL (2.3-7.9); NEUT % 81.8 % (47.0-73.0); PLATELET COUNT AUTOMATED 212 10*3/uL (130-400); RED BLOOD COUNT 4.87 10*6/uL (4.10-5.10); RED CELL DISTRI WIDTH 14.1 % (0-14.5); WHITE BLOOD COUNT 14.1 10*3/uL (4.8-10.8)
[2017-07-04] MEDS ORDERED: VRAYLAR1.5 MG PO (17:31)
[2017-07-04] MEDS ORDERED: ARTANE5 M1 PO (17:32)
[2017-07-04] MEDS ORDERED: EXEL13.31 T (17:32)
[2017-07-04 17:36] LABS: ALBUMIN 4.2 gm/dl (3.1-4.5); ALKALINE PHOSPHATASE 144 U/L (45-117); BUN 18 mg/dl (7-24); CHLORIDE 115 mmol/L (98-107); CREATININE 1.19 mg/dL (0.55-1.02); SGOT/AST 20 IU/L (3-35); SGPT/ALT 29 U/L (12-78); SODIUM 147 mmol/L (136-145); TOTAL PROTEIN 7.6 gm/dL (6.4-8.2)
[2017-07-04 17:38] LABS: TROPONIN I < 0.015 ng/ml (<0.045)
[2017-07-04] MEDS ORDERED: DITROPAN XL5 MG PO (18:48)
[2017-07-04] MEDS ORDERED: PAMELOR50 MG PO (18:51)
[2017-07-04] MEDS ORDERED: VITAMIN D5000 UNI1 PO (18:53)
[2017-07-04] MEDS ORDERED: GEODON20 M1 IM (18:54)
[2017-07-04] MEDS ORDERED: INVEGA SUSTENN234 MG IM (19:18)
[2017-07-04] MEDS ORDERED: ELIQUIS5 M1 PO (22:06)
[2017-07-05] MEDS ORDERED: SEPTDS PO (14:20)
[2017-07-05] MEDS ORDERED: K-PHOS500 MG PO (14:20)
[2017-07-05] MEDS ORDERED: ATIVAN1 MG PO (16:19)
--- NOTE | 2017-07-07 08:03 | NUR ---
PHYSICAL THERAPY CO-SIGN I approve of the Phyical Therapy notes written above. NENA KEEN PT
== END 2017-07-04 18:08 | disposition short-term general hospital (02) | DRG 885 ==
LOC: 3N 13:15
PROVIDERS: Internal Medicine; Internal Medicine Hospice and Palliative Medicine; Registered Nurse; ADMIT Psychiatry & Neurology Psychiatry
DX: F25.0 Schizoaffective disorder, bipolar type (principal); N17.0 Acute kidney failure with tubular necrosis; E87.0 Hyperosmolality and hypernatremia; F23 Brief psychotic disorder; N18.4 Chronic kidney disease, stage 4 (severe); F31.60 Bipolar disorder, current episode mixed, unspecified; E87.8 Other disorders of electrolyte and fluid balance, not elsewhere classified; G40.909 Epilepsy, unspecified, not intractable, without status epilepticus; E03.9 Hypothyroidism, unspecified; R73.9 Hyperglycemia, unspecified; E78.2 Mixed hyperlipidemia; E86.0 Dehydration; Z82.49 Family history of ischemic heart disease and other diseases of the circulatory system; Z79.82 Long term (current) use of aspirin; Z79.899 Other long term (current) drug therapy; Z86.711 Personal history of pulmonary embolism

== ENCOUNTER 2017-07-04 17:53 | Inpatient (IN) | payer MEDICARE, MEDICAID ==
[~2017-07-04] VITALS: Ht 167.6 cm; Wt 61.9 kg
[~2017-07-04 17:53] MED LIST changes: +ARTANE5 M1 PO; +DITROPAN XL5 MG PO; +EXEL13.31 T; +KEFLEX500 M1 PO; +VRAYLAR1.5 MG PO
[2017-07-04 18:10] VITALS: BP 146/77
--- NOTE | 2017-07-04 18:10 | NUR ---
A 66, admitted to ICCU, under the services of CATY Laurent DO with a diagnosis of SINUS TACHYCARDIA AND NEW ONSET RIGHT SIDE WEAKNESS. Chief complaint is WAS LEANING TO RIGHT SIDE PER U STAFF, TACHYCARDIC 120'S, FLUSHED AND DIAPHORETIC. Patient [place] via wheel [place] from [place]. Monitor applied. Initial assessment completed. Vital signs taken and recorded. CATY LAURENT DO notified of admission to the unit. Orders received. See assessment for past medical history, medications and allergies. Patient and/or family oriented to unit. [facility]. Clothing/patient valuable form completed. JIAN MINAYA
[2017-07-04] MEDS ORDERED: DITROPAN XL5 MG PO (18:48)
[2017-07-04] MEDS ORDERED: PAMELOR50 MG PO (18:51)
[2017-07-04] MEDS ORDERED: VITAMIN D5000 UNI1 PO (18:53)
[2017-07-04] MEDS ORDERED: GEODON20 M1 IM (18:54)
--- NOTE | 2017-07-04 19:06 | NUR ---
DR CANTRELL NOTIFIED OF CT CALLING AND RADIOLOGIST RECOMMENDING AT VQ SCAN RATHER THAN CTA RE: GFR RESULTS. HE IS GOING TO CALL CT.
[2017-07-04] MEDS ORDERED: INVEGA SUSTENN234 MG IM (19:18)
[2017-07-04 20:00] VITALS: BP 136/80
--- NOTE | 2017-07-04 21:00 | NUR ---
AT 1945 I ACCOMPANIED PT DOWN TO CT FOR CT OF HEAD AND STRAIGHT TO NUCLEAR MED FOR VQ SCAN. SHE TOLERATED BOTH TESTS WELL. CONTINUOUS SCUBA DIVE TRAINING INSTRUCTOR SHOW ST 102-112/MIN WITH RR 18-20/MIN. WE ARRIVED BACK TO ROOM AND PT VOIDED BUT AMT TOO SMALL TO SEND FOR UA.
--- NOTE | 2017-07-04 21:54 | NUR ---
DR CANTRELL NOTIFIED OF VQ SCAN RESULTS. ASKED ABOUT REORDERING HOME MEDICATIONS. HE IS COMING DOWN TO SEE PT.
[2017-07-04] MEDS ORDERED: ELIQUIS5 M1 PO (22:06)
--- NOTE | 2017-07-04 23:01 | NUR ---
PT SITTING ON SIDE OF BED, WANTING TO GO INTO BATHROOM. SHE PULLED ALL OF HER LEADS OFF. ASSISTED PT TO BSC. UA SPECIMEN OBTAINED ORDERED AND SENT TO LAB. I APPLIED NEW PATCHES, SHE WAS REMOVING THEM I WAS APPLYING THEM. HER MEDICATIONS WERE RESUMED. SHE IS UP, AMBULATING AROUND THE ROOM, FOLDING SHEETS AND BLANKETS.
[2017-07-04 23:11] LABS: BILIRUBIN 1+ (NEGATIVE); BLOOD 3+ (NEGATIVE); CLARITY CLOUDY (CLEAR); COLOR RED (YELLOW); GLUCOSE NEGATIVE (NEGATIVE); KETONE NEGATIVE (NEGATIVE); LEUKO ESTERASE 3+ (NEGATIVE); NITRITE NEGATIVE (NEGATIVE); PH 6.5 (5.0-9.0); UROBILINOGEN 0.2 E.U./dl (0.2-1.0)
[2017-07-04 23:27] LABS: BACTERIA 3+; RBC TNTC rbc/hpf (0-2); WBC TNTC wbc/hpf (0-5)
--- NOTE | 2017-07-04 23:31 | NUR ---
DR SIDDIQUI NOTIFIED OF UA RESULTS AND THAT PT WILL NOT WEAR HEART MONITOR AND ALTHOUGH SHE WAS ALL OVER HER ROOM, ADJUSTING THINGS, SHE IS BACK IN BED NOW AND APPEARS TO BE CALM AT THIS TIME.
--- NOTE | 2017-07-05 00:26 | NUR ---
DR SIDDIQUI HERE....SEEING THAT PT IS OFF MONITOR AND UP & ABOUT IN HER ROOM.
--- NOTE | 2017-07-05 01:20 | NUR ---
PRASADDON GIVEN AT 0045 FOR AGITATION IN NO WAY EFFECTIVE. UNABLE TO DIRECT PT. DR CHARLES HERE AND IN TO ASSESS HER. I HAVE BEEN SITTING OUTSIDE HER ROOM SHE IS TRYING TO LEAVE ROOM AND GO INTO OTHER PT'S ROOM.
--- NOTE | 2017-07-05 02:14 | NUR ---
SHIFT DIRECTOR NOTIFIED OF 1:1 SITTER ORDER.
--- NOTE | 2017-07-05 03:26 | NUR ---
PT REMAINS UNCOOPERATIVE, NOT OBEYING COMMANDS, AND SAYING REPETITIVE SENTENCES.
[2017-07-05 04:00] VITALS: BP 160/91
--- NOTE | 2017-07-05 04:05 | NUR ---
SECOND LITER OF IVF ALMOST INFUSED, THEN NS AT 100CC/HR. PT IN BED. STILL AWAKE BUT A LITTLE CALMER. 1:1 OBSERVATION AT BEDSIDE.
[2017-07-05 06:14] LABS: BASO % 0.2 % (0.0-1.0); HEMATOCRIT 44.2 % (37.0-47.0); HEMOGLOBIN 14.4 g/dl (12.0-16.0); LYMPH # 0.9 10*3/uL (1.3-4.4); LYMPH % 7.5 % (27.0-41.0); MEAN CELL VOLUME 96.3 fl (81.0-99.0); MEAN CORPUSCULAR HGB 31.4 pg (27.0-31.0); MEAN CORPUSCULAR HGB CONC 32.6 g/dl (33.0-37.0); MEAN PLATELET VOLUME 12.4 fl (9.6-12.3); MONO # 1.1 10*3/uL (0.1-1.0); MONO % 8.9 % (3.0-9.0); NEUT # 10.3 10*3/uL (2.3-7.9); NEUT % 82.9 % (47.0-73.0); PLATELET COUNT AUTOMATED 194 10*3/uL (130-400); RED BLOOD COUNT 4.59 10*6/uL (4.10-5.10); RED CELL DISTRI WIDTH 14.4 % (0-14.5); WHITE BLOOD COUNT 12.4 10*3/uL (4.8-10.8)
[2017-07-05 06:24] LABS: ALBUMIN 3.8 gm/dl (3.1-4.5); ALKALINE PHOSPHATASE 134 U/L (45-117); BUN 15 mg/dl (7-24); CHLORIDE 122 mmol/L (98-107); CREATININE 1.04 mg/dL (0.55-1.02); MAGNESIUM 2.4 mg/dL (1.5-2.1); PHOSPHOROUS 2.2 mg/dL (2.5-4.9); POTASSIUM 3.8 mmol/L (3.5-5.1); SGOT/AST 18 IU/L (3-35); SGPT/ALT 26 U/L (12-78); SODIUM 154 mmol/L (136-145); TOTAL PROTEIN 7.2 gm/dL (6.4-8.2)
[2017-07-05 06:27] LABS: ACT PARTIAL THROMBO TIME 26.3 SECONDS (20.8-31.5); INTERNATIONAL NORM RATIO 1.3 (2.0-3.5)
--- NOTE | 2017-07-05 06:37 | NUR ---
DISCUSSED PT CONSULT AND CONDITION WITH DR ALVAREZ....ESPECIALLY HER BEHAVIOR AND AMBULATING AROUND ROOM, NOT RELAXING. ALL OF HER MEDICATIONS WERE REVIEWED WITH HIM. RANDY VARGAS AND NEW ORDER FOR KALYANI TO BEGIN WELL ONCOMING RN TO CALL HIM AT 12-1PM TO LET HIM KNOW HOW SHE IS DOING. HE WILL SEE HER TODAY OR TOMORROW.
--- NOTE | 2017-07-05 06:48 | NUR ---
CALLED [facility] WITH PT NAME/ROOM NUMBER PER REQUEST OF DR ALVAREZ.
--- NOTE | 2017-07-05 07:48 | NUR ---
Shift chart check completed.[address] HR [address] check completed. Dr Stanton et judy have visited. Patient has a 1:1 sitter. She will not stay on the food packer. Her gait is fairly steady. She has not sat down since beginning of my shift. She follows some commands, allowed me to take her BP and took deep breaths on command. IV fluids have been discontinued per order. She offers no voiced complaints of pain.
[2017-07-05 08:00] VITALS: BP 120/80
--- NOTE | 2017-07-05 09:38 | NUR ---
TYLENOL TABS TWO FOR BACKACHE. PT'S HERE. ENCOURAGED TO GET INTO BED AND RELAX.
--- NOTE | 2017-07-05 11:18 | NUR ---
PT IS CURRENTLY LYING IN BED WITH HER EYES CLOSED, NO FURTHER C/O PAIN SINCE EARLIER TYLENOL. AT THE BEDSIDE. DR OLIVER HAS BEEN NOTIFIED THAT [facility] HAS A BED AVAILABLE IF HIS TEAM WANTS TO CONTACT DR ALVAREZ AND ADMIT PATIENT BACK TO U.
[2017-07-05 12:00] VITALS: BP 132/77
--- NOTE | 2017-07-05 13:34 | NUR ---
DR OLIVER HAS TRIED TO REACH DR ALVAREZ ABOUT POSSIBLE DISCHARGE BACK TO [facility]. HE HAS LEFT A VOICEMAIL WITH HIM ALSO. AND 1:1 SITTER REMAIN IN ROOM.
[2017-07-05] MEDS ORDERED: K-PHOS500 MG PO (14:20)
[2017-07-05] MEDS ORDERED: SEPTDS PO (14:20)
--- NOTE | 2017-07-05 15:33 | NUR ---
DISCHARGE ORDER RECEIVED VIA CPOE. I PHONED [facility]. THEY WILL CALL WHEN COMING.
--- NOTE | 2017-07-05 16:06 | NUR ---
JULITA FROM [facility] HERE. DR OLIVER HERE TO SIGN INVOLUNTARY ADMISSION FORM.
--- NOTE | 2017-07-05 16:12 | NUR ---
DISCHARGED IN STABLE CONDITION VIA WC WITH [facility] NURSE AND HER BELONGINGS.
[2017-07-05] MEDS ORDERED: ATIVAN1 MG PO (16:19)
== END 2017-07-05 16:12 | disposition home or self-care (01) | DRG 871 ==
LOC: ICCU 17:53
PROVIDERS: Internal Medicine; ADMIT Internal Medicine
DX: A41.9 Sepsis, unspecified organism (principal); N17.0 Acute kidney failure with tubular necrosis; G93.41 Metabolic encephalopathy; E87.0 Hyperosmolality and hypernatremia; G45.9 Transient cerebral ischemic attack, unspecified; N39.0 Urinary tract infection, site not specified; F23 Brief psychotic disorder; R65.20 Severe sepsis without septic shock; E03.9 Hypothyroidism, unspecified; E78.5 Hyperlipidemia, unspecified; F41.9 Anxiety disorder, unspecified; N18.9 Chronic kidney disease, unspecified; R31.9 Hematuria, unspecified; E87.8 Other disorders of electrolyte and fluid balance, not elsewhere classified; R73.9 Hyperglycemia, unspecified; E86.0 Dehydration; F25.0 Schizoaffective disorder, bipolar type; E55.9 Vitamin D deficiency, unspecified; Z86.711 Personal history of pulmonary embolism; Z82.49 Family history of ischemic heart disease and other diseases of the circulatory system; Z79.899 Other long term (current) drug therapy

== ENCOUNTER 2017-07-05 15:42 | Inpatient (IN) | payer MEDICARE, MEDICAID ==
--- NOTE | ~2017-07-05 | PR ---
[place], [place] PROGRESS NOTE [id number] #: [id number] ROOM: 315 DOCTOR: EBER CROCKETT MD BIRTHDATE: [birth year] DOS: 07/07/2017 CHIEF COMPLAINT: "I feel a little better, but I'm still lightheaded." SUMMARY OF THE VISIT: The patient was interviewed as she sat in the dining area, reclining in a Lashawn chair, watching television and eating her breakfast. She engaged readily in conversation. She seemed fairly bright and pleasant. She did also seem less preoccupied with internal stimuli and reports that the voices have lessened. She did note that she was having issues over the weekend with a rapid heartbeat and was somewhat symptomatic and that she did complain of feeling lightheaded. This overall feeling has lessened in frequency and intensity and overall she is noticing that she is beginning to feel better. MENTAL STATUS: She is alert and oriented with some time gaps. Mood does seem to be trending towards euthymia. Affect is more appropriate. There are no symptoms of taty or hypomania. There are no overt auditory or visual hallucinations. No delusions, no paranoia. Short, intermediate and long-term memories for the most part are intact. PLAN: At this point in time, she seems to be receiving enough benefit from the Invega Sustenna alone that I will maintain it and discontinue the Vraylar at this point. We will see if the Invega Sustenna by itself can eliminate her psychotic symptomatology. We will engage her in individual and alvarez milieu activity with the plan to return to the least restrictive environment when psychiatrically stable. EBER CROCKETT MD CM:PNTRANS [id number] EBER CROCKETT MD 07/07/17 1110 interface
--- NOTE | ~2017-07-05 | EKG ---
[place], [place] ELECTROCARDIOGRAM REPORT NAME: ORLY BABCOCK UNIT #: [id number] ROOM: 315 DOCTOR: TROY GARZA MD BIRTHDATE: [birth year] DOS: 07/05/2017 TIME: 1736 hours. Sinus tachycardia at 114 beats per minute. The tracing is within normal limits. No previous tracing is available for comparison. TROY GARZA MD CM:EKGRPT:ELECTROCARDIOGRAM REPORT [id number] TROY GARZA MD
--- NOTE | ~2017-07-05 | PR ---
[place], [place] PROGRESS NOTE [id number] UN[facility] #: [id number] ROOM: 315 DOCTOR: EBER CROCKETT MD BIRTHDATE: [birth year] DOS: 07/09/2017 CHIEF COMPLAINT: "Good morning, how are you?, I am feeling better." SUMMARY OF THE VISIT: The patient was interviewed as she sat in a Lashawn chair in the dining area waiting for breakfast. She reports that her mood is better. She is sleeping better and eating well. She reports that her auditory hallucinations have dissipated almost completely. Of note, however, she is very unsteady on her feet and does seem to be leaning to one side more so than the other. MENTAL STATUS: She is alert and oriented with some time gaps. Mood does seem to be trending strongly towards euthymia. Affect is more appropriate. There is no taty or hypomania. There are no overt auditory or visual hallucinations. No delusions are present. Short term memory has some mild gaps, otherwise she is intact. PLAN: I will go ahead and increase her Artane from 2 mg twice daily to 2 mg 3 times daily to see if this improves her gait. I have recontacted Physical Therapy to make certain that they aggressively ambulate her, so she maintains, if not builds up her strength. We will continue to support and monitor, engage in individual and alvarez milieu activity, planning to then discharge to the least restrictive environment when psychiatrically stable. EBER CROCKETT MD CM:PNTRANS [id number] EBER CROCKETT MD 07/09/17 1809 interface
--- NOTE | ~2017-07-05 | DS ---
[place], [place] DISCHARGE SUMMARY NAME: ORLY BABCOCK [facility] #: [id number] UNIT #: [id number] ROOM: 315 DOCTOR: EBER CROCKETT MD BIRTHDATE: [birth year] DOS: 07/11/2017 CHIEF COMPLAINT: "I'm still hearing the voices." HISTORY OF PRESENT ILLNESS: This is a 66-year-old white female with a long history of schizoaffective disorder as well as multiple admissions to the U. The patient was admitted for stabilization on the U, but was transferred off the unit because of unsteady gait with tachycardia. After being stabilized in ICU, the patient was transferred back to the psychiatric unit because of ongoing auditory hallucinations as well as some depressive symptomatology. The patient is to be stabilized on medication, engage in individual and alvarez milieu activity and then determine the least restrictive environment post-discharge. PAST MEDICAL HISTORY: Remarkable for chronic kidney disease, hyperlipidemia, hypothyroidism, pulmonary emboli, seizure disorder, and vitamin D deficiency. SUMMARY OF HOSPITAL COURSE: The patient was readmitted to the unit where she was continued to be monitored after having received her loading injection of Invega Sustenna 234 mg. As the medication continued to work, she did report that the auditory hallucinations decreased in frequency and intensity and finally abated. She had briefly been started on Vraylar but given the fact that the Invega Sustenna had begun to work effectively, the Vraylar was discontinued. Of note, the patient did have a lean to the left side as well as an unsteady gait. Artane was started at 2 mg twice daily and subsequently increased to 2 mg 3 times daily with an improvement in the tremor and in the left lean. Physical therapy actively engaged her in ambulation and her gait gradually began to improve during the latter part of her stay. She voiced a positive plan for the future and was improving dramatically in regards to her psychiatric symptomatology; however, because of her gait issues, it was felt that a 30 day rehabilitation stint at [facility] would be a welcome addition to help her further improve. MENTAL STATUS AT DISCHARGE: The patient was alert and oriented to person, place and time. Mood did seem to be strongly trending towards euthymia. Affect was much more appropriate. There was no symptom suggestive of hypomania or taty. Likewise, she convincingly denied the presence of any auditory or visual hallucinations. There is no paranoia. Memory for the most part was fully intact. FINAL DIAGNOSIS: Schizoaffective disorder. PLAN: The patient is to be discharged to [facility] where I will follow her upon her admission there. [place], [place] DISCHARGE SUMMARY NAME: ORLY BABCOCK UNIT #: [id number] ROOM: [facility] DOCTOR: EBER CROCKETT MD BIRTHDATE: [birth year] EBER CROCKETT MD CM:DISCHARG 1 EBER CROCKETT MD 07/11/17920 interface
--- NOTE | ~2017-07-05 | WRIGHTHP ---
[place], [place] PATIENT HISTORY AND PHYSICAL EXAM NAME: ORLY BABCOCK [facility] #: [id number] UNIT #: [id number] ROOM: 315 DOCTOR: Raad ALVAREZ MAHBOOB BIRTHDATE: [birth year] DOS: 07/06/2017 REASON FOR HOSPITALIZATION: Increased depression and auditory hallucination. HISTORY OF PRESENT ILLNESS: The patient seen and chart reviewed. A 66-year-old white female with long history of schizoaffective disorder and multiple prior psychiatric hospitalizations was admitted to the psychiatric hospital at [facility]. The patient was transferred to the ICU because of weakness in her gait and also tachycardia. She was stabilized in the ICU and after stabilization the patient was transferred back to the psychiatric unit on 07/05/2017. The patient was pleasant and cooperative during the interview. She was in the Lashawn chair. I brought her to the interview room. She said that she is feeling better since she got admitted to the hospital. She says she is feeling much better because she is in the psych unit now. She described her mood as "okay." Affect was somewhat flat. She says that she the voices of the little people are not there anymore. She seems to be not in any kind of distress. It should be noted that initially the patient was admitted to the psychiatric unit because of auditory hallucinations commenting consistently on what she is doing. Reportedly, the voices were keeping her up all night and then they were interfering with her life. She was feeling increasingly depressed, down, sad, hopeless, helpless with increased crying spells. Dr. Wilson who is her psychiatrist in the outpatient as well as the inpatient unit was working on readjusting her medication and also was trying to rule out any organic causes for her illness. PAST MEDICAL HISTORY: Significant for chronic kidney disease, hyperlipidemia, hypothyroidism, pulmonary emboli, seizure disorder, vitamin D deficiency. PAST PSYCHIATRIC HISTORY: The patient with long history of schizoaffective disorder. She tried to kill herself one time by overdose. No suicide in the family. Denied having any gun at home. SUBSTANCE ABUSE HISTORY: The patient denied any drugs or alcohol. SOCIAL HISTORY: She mentioned she was born and raised in [place], [place], some college, 3 times now for 12 years. She has 2 kids, 1 boy and a girl. She is on SSD. She lives with her . MENTAL STATUS EXAMINATION: The patient was pleasant and cooperative, described her mood as "okay." Affect was flat. Thought process goal directed. She is still hearing voices, but they are not bothering her as much. Denied any visual hallucination. No overt delusion or paranoia noted. She denied any suicidal ideation, intent or plan. She also denied any homicidal ideation, intent or plan. ASSESSMENT: Schizoaffective disorder, still has psychotic symptoms. [place], [place] PATIENT HISTORY AND PHYSICAL EXAM NAME: ORLY BABCOCK UNIT #: [id number] ROOM: [facility] DOCTOR: Raad ALVAREZ,LINDA BIRTHDATE: [birth year] PLAN: 1. Continue current medication of Invega. 2. Continue redirection. 3. Ponce milieu. 4. Encourage activity in groups. 5. Final medication management, discharge planned by the regular team. LINDA ALVAREZ MD CM:HISPHYS:PATIENT HISTORY AND PHYSICAL EXAMINATION [id number] Raad ALVAREZ 07/07/17 0806 interface
[~2017-07-05 15:42] MED LIST changes: +GEODON20 M1 IM; +INVEGA SUSTENN234 MG IM; +K-PHOS500 MG PO; +PAMELOR50 MG PO; +SEPTDS PO; +VITAMIN D5000 UNI1 PO
--- NOTE | 2017-07-05 16:14 | NUR ---
ORLY BABCOCK a 66 year old F admitted via wheel chair WITH NURSE AND SECURTIY from the ICU as a PINK SLIP emergency 72 hr. hold admission. Arrived on unit at 1614. ALLERGIES: NKA Vital signs are: 99.6, 125/65, 130, 2096%RA. The client signed the following forms with stated understanding: Authorization For The Release of Medical Information, Clothing List, Consent to Voluntary Admission and Hospitalization, Consent and Release Forms/Receipt of Rights, Acknowledgement of Advance Directive Information, Behavioral Health Consent Form, and Informed Consent of Medications. Admitted under the services of Dr. BON CORRALEBER. A search was conducted and hazardous articles were removed. Client was oriented to the unit. JULITA NUNEZ
[2017-07-05] MEDS ORDERED: ATIVAN1 MG PO (16:19)
--- NOTE | 2017-07-05 16:20 | NUR ---
PATIENT IN QUIET ROOM IN WHEELCHAIR. ALERT AND ORIENTED TO PERSON AND PLACE WITH CONFUSION. OBSERVED PATIENT PLACE SELF ON FLOOR ATTEMPTING TO TAKE PANTS OFF. PATIENT ASSISTED TO ROSAURA CHAIR WITH TWO NURSES. TRAY PLACED FOR DINNER. 1 PERSON ASSIST WITH MEAL.
--- NOTE | 2017-07-05 17:13 | NUR ---
MEDICATION REC COMPLETED AND DR. HESS AWARE.
--- NOTE | 2017-07-05 17:13 | NUR ---
VITALS: 98.8, 130/90 MANUAL, 130 APICAL PULSE, RESPIRATIONS 22, O2 SAT 96% RA. DR HESS NOTIFIED OF NEW ADMISSION, ON ABT FOR UTI AND OF VITAL. NEW ORDER FOR EKG AND ORDERED PLACED AT THIS TIME.
--- NOTE | 2017-07-05 17:20 | NUR ---
DR OLIVER ON UNIT TO SEE PATIENT.
--- NOTE | 2017-07-05 17:29 | NUR ---
ORLY BABCOCK a 66 year old F admitted via wheel chair from the ICU as a PINCK SLIP emergency 72 hr. hold admission. Arrived on unit at 1614. ALLERGIES: NKA. Vital signs are: 99.6,125/65, 130, 20, 96%RA. The client signed the following forms with stated understanding: Authorization For The Release of Medical Information, Clothing List, Consent to Voluntary Admission and Hospitalization, Consent and Release Forms/Receipt of Rights, Acknowledgement of Advance Directive Information, Behavioral Health Consent Form, and Informed Consent of Medications. Admitted under the services of Dr. BON CORRAL,[facility]. A search was conducted and hazardous articles were removed. Client was oriented to the unit. JULITA NUNEZ
[2017-07-05 17:58] VITALS: BP 125/65
[2017-07-05 19:51] VITALS: BP 130/90
--- NOTE | 2017-07-05 20:50 | NUR ---
PATIENT IN DINING AREA WATCHING TELEVISION. MEDICATION COMPLAINT. VOICES NO COMPLAINTS OF PAIN OR DISCOMFORT AT THIS TIME
--- NOTE | 2017-07-06 02:46 | NUR ---
24 HR chart check completed.
--- NOTE | 2017-07-06 06:37 | NUR ---
Q 15 MINUTE SAFETY CHECKS MAINTAINED. SLEPT < 5 HRS THROUGHOUT SHIFT
[2017-07-06 08:00] VITALS: BP 112/75
--- NOTE | 2017-07-06 16:31 | NUR ---
Abbie is noted to exhibit some confusion and is oriented to person only when assessed today. She voiced a belief that she is in "detention" and was unable to state appropriate date. Noted to exhibit difficulty in completing simple tasks. @ times she is noted to stop in the middle of an activity and stare blankly forgetting what she was doing. She is compliant with medications. Denies any sensory disturbances when questioned. Reports that she experiences difficulty with her memory. Dr. Bonillamed in to see her today. @ times responses to staff are noted to be irrrelevant. Appetite is fair. Refer to [facility] flowsheet for specific monitoring.
[2017-07-06 20:00] VITALS: BP 117/82
--- NOTE | 2017-07-06 21:30 | NUR ---
PATIENT MEDICATION COMPLIANT. SITTING IN DINING AREA WATCHING TELEVISION. CONTINUES ON BACTRIM DS FOR +UTI. NO ADVERSE REACTION. NO COMPLAINTS OF DYSURIA. FLUIDS PROVIDED
--- NOTE | 2017-07-07 02:59 | NUR ---
24 HR chart check completed.
[2017-07-07 06:40] LABS: BASO % 0.4 % (0.0-1.0); EOS # 0.2 10*3/uL (0.0-0.4); EOS % 2.9 % (1.0-4.0); HEMATOCRIT 40.6 % (37.0-47.0); HEMOGLOBIN 13.1 g/dl (12.0-16.0); LYMPH # 1.5 10*3/uL (1.3-4.4); LYMPH % 18.2 % (27.0-41.0); MEAN CELL VOLUME 97.8 fl (81.0-99.0); MEAN CORPUSCULAR HGB 31.6 pg (27.0-31.0); MEAN CORPUSCULAR HGB CONC 32.3 g/dl (33.0-37.0); MEAN PLATELET VOLUME 12.1 fl (9.6-12.3); MONO # 0.8 10*3/uL (0.1-1.0); MONO % 9.3 % (3.0-9.0); NEUT # 5.7 10*3/uL (2.3-7.9); NEUT % 68.6 % (47.0-73.0); PLATELET COUNT AUTOMATED 177 10*3/uL (130-400); RED BLOOD COUNT 4.15 10*6/uL (4.10-5.10); RED CELL DISTRI WIDTH 14.6 % (0-14.5); WHITE BLOOD COUNT 8.3 10*3/uL (4.8-10.8)
--- NOTE | 2017-07-07 07:09 | NUR ---
Q 15 MINUTE SAFETY CHECKS MAINTAINED. SLEPT 2-3 HOURS WITH INTERRUPTED SLEEP THROUGHOUT SHIFT
[2017-07-07 07:13] LABS: ALBUMIN 3.3 gm/dl (3.1-4.5); ALKALINE PHOSPHATASE 119 U/L (45-117); BUN 18 mg/dl (7-24); CHLORIDE 114 mmol/L (98-107); CREATININE 1.02 mg/dL (0.55-1.02); MAGNESIUM 2.2 mg/dL (1.5-2.1); PHOSPHOROUS 2.8 mg/dL (2.5-4.9); POTASSIUM 3.8 mmol/L (3.5-5.1); SGOT/AST 26 IU/L (3-35); SGPT/ALT 29 U/L (12-78); SODIUM 148 mmol/L (136-145); TOTAL PROTEIN 6.7 gm/dL (6.4-8.2)
[2017-07-07 08:13] VITALS: BP 101/59
[2017-07-07 08:45] VITALS: BP 118/68
--- NOTE | 2017-07-07 09:30 | NUR ---
ON UNIT TO ASSESS PT.
--- NOTE | 2017-07-07 09:50 | NUR ---
[facility].
--- NOTE | 2017-07-07 11:40 | NUR ---
OT WORKING WITH PT, OBSERVED PT TO HAVE LEFT SIDED WEAKNESS. PT METAL HANGING HELPER STRENGTH EQUAL BILATERALLY, PT ABLE TO SMILE EQUALLY ON BOTH SIDES. THIS NURSE HAD MILEUI WALK PT 40 FEET, PT LEANING TOWARD RIGHT SIDE. NOTIFIED OF OT CONCERNS AND THIS NURSE'S FINIDNGS. NO FURTHER ORDERS AT THIS TIME.
--- NOTE | 2017-07-07 11:48 | NUR ---
SW received call from Bailey Swanson inquiring about Pt. Bailey will review referral and let JOHANNA know outcome.
--- NOTE | 2017-07-07 11:54 | NUR ---
PHYSICAL THERAPY PAtient evaluated on 3, full evaluation to follow. 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 Will require SNF for impaired mobility. PAtient is moderate complexity via chart review, tests and evaluation: [id number]. thank you for this referral. Racheal Gannon,PT
--- NOTE | 2017-07-07 13:05 | NUR ---
Occupational Therapy evaluation completed this date on [facility] with full eval to follow. Precautions include significant left lean in sitting, decreased functional use of LUE and suspected LUE decreased sensation,left visual field disregard, moderate complexity level 87559, fall risk, +2 to ambulate. Recommend OT per POC and SNF upon d/c to enable return home w/ at [facility]. Thank you for this referral. Sonia Rodarte OTR/L
--- NOTE | 2017-07-07 13:12 | NUR ---
Exercise/Memory Ball Helps with goals of treatment plan for patient with socialization staying on task cognative skills Patient did attend group as well as participated. Patient was able to follow directions and stay on task. Patient shared memories and talked with others about their memories. Patient stayed foucused with no H/I while in group
--- NOTE | 2017-07-07 15:00 | NUR ---
LIASON FROM [facility] HERE TO ASSESS PT.
--- NOTE | 2017-07-07 18:24 | NUR ---
PT ALERT TO PERSON AND PLACE. PT MED COMPLIANT WITHOUT DIFFICULTY. PT CALM, PARTICIAPTING IN ACTIVITIES, INTERACTING WITH STAFF AND PEERS. NO HALLUCIANTIONS OR DELUSIONS NOTED AT THIS TIME. PT DENIES ANY HOMICIDAL/SUICIDAL THOUGHTS. PT EXHIBITING RIGHT SIDED WEAKNESS, AT TIMES, NEGLECTING TO USE LEFT SIDE. ON UNIT TO ASSESS PT EARLIER IN THE DAY,PER CONTINUE TO MONITOR PT. PLAN IS TO ENCOURAGE PT TO VOICE ANY HALLUCIANTIONS OR DELUSIONS, MONITOR PT BEHAVIOR SON Q15 MIN SAFTEY CHECKS.
[2017-07-07 20:09] VITALS: BP 108/58
--- NOTE | 2017-07-07 21:41 | NUR ---
MEDICATION COMPLIANT. RESTLESS IN CHAIR. ARGUMENTATIVE WITH STAFF WITH NONSENSICAL SUBJECTS. AMBULATED TO BATHROOM WITH ONE ASSIST
--- NOTE | 2017-07-08 03:38 | NUR ---
24 HR chart check completed.
--- NOTE | 2017-07-08 07:05 | NUR ---
Q 15 MINUTE SAFETY CHECKS MAINTAINED. SLEPT 2-3 HOURS INTERMITTENTLY THROUGHOUT SHIFT
--- NOTE | 2017-07-08 07:48 | NUR ---
spoke with Luz Elena Sage for [facility] in regards to referral, she said she will give new information to [facility] per Dr. villanueva suggestion she goes to [facility] and he will follow pt.
--- NOTE | 2017-07-08 07:58 | NUR ---
PHYSICAL THERAPY Abbie was seen this AM 1:1 for her therapy treatment, Pt up in the day room in [facility] with body alarm on. Went over with Pt on what we were goingto do. Looks like new CVA left neglect but after gait some improvement. Transfer sit/stand, standing balance MOD A X 1. Gait total 60' X 1, MOD COILER X 1, with Pt using the willis handrail for balance. One standing rest with this and back up in her [facility], body alarm on. End with act Ex to bilateral LE of quad sets, ankle pumps, SLR this visit X 25 reps each with cueing for each Ex. Tray back up on [facility] and breakfast coming, treatment time 25 min. MICHAELA ABAD MAGISTRATE.
[2017-07-08 08:02] VITALS: BP 118/64
--- NOTE | 2017-07-08 08:11 | NUR ---
07/07/17 Afternoon LUPE This group will help patient with treatment goal of staying on task, keeping oriented to reality Patient did attend group as well as participated. Patient was quiet speaking only occasionally. Patient stayed on task and followed directions throughout group
--- NOTE | 2017-07-08 11:16 | NUR ---
pt readmitted back to [facility] after brief stay on medical floor due to tacchycardia and rt. side weakeness. pt. to be referred to [place] for 30 day rehab stay before returning home.
--- NOTE | 2017-07-08 11:35 | NUR ---
PATIENT SEEN 1:1 OT THERAPY FOR 15 MINUTES IN DAY ROOM. PATIENT COMPLETED STAND PIVOT XFER WITH FWW GERCHAIR TO ARM CHAIR MOD A WITH MOD VERBAL CUES SAFETY/ TECHNIQUE. PATIENT COMPLETED STAND PIVOT XFER ARM CHAIR TO GERICHAIR USE FWW MODA AND MOD INSTRUCTION SECONDARY DECREASE SAFETY AWARENESS AND P+ BALANCE. PATIENT COMPLETED BUE STR AROM ALL PLANES X 10 REPS SEATED WITH LEFT LEAN NOTED AND VERBAL CUES TO SELF CORRECT. PATIENT REQUIRED VERBAL CUES INCREASE BASE OF SUPPORT WITH STANDING TASK. PATIENT REQUIRED SIMPLE ONE STEP COMMANDS TECHNIQUE/FORM BUE STRENGTHENING TASK. PATIENT SEATED IN ROSAURA CHAIR WITH ALARM AND TRAY IN PLACE END OF SESSION. JOSE GUTIERREZ/Dean
--- NOTE | 2017-07-08 12:52 | NUR ---
Exercise/Games This will help patient stay on task and stay oriented to reality Patient did not come to group until the game was started. Patient was in the shower. Incorporated patient into game and she stayed focused and on tasked. Also with this patient after a couple of rounds patient was bored with the game so we ended it and put a movie in of their choosing
--- NOTE | 2017-07-08 13:55 | NUR ---
PT FACED FLUSHED. VS [id number]/56-98%RA. NO S/S OF DISTRESS NOTED. WILL CONTINUE TO MONITOR.
--- NOTE | 2017-07-08 14:39 | NUR ---
Pasrr back for pt. per Bhupendra Gant, pt. to be d/c'ed tomorrow to [facility]
--- NOTE | 2017-07-08 15:47 | NUR ---
Halloween,Color and Talk this will help patient with her teatment goals of staying focused and oriented to present reality Patient did attend group as well as participated. Patient was mostly quietly coloring her picture but would occasionally chime into the conversation. Patient stayed focused throughout group
--- NOTE | 2017-07-08 16:15 | NUR ---
SW COMPLETED AND SUBMITTED PASRR TO [facility]. COPY ON CHART
[2017-07-08 19:47] VITALS: BP 110/64
--- NOTE | 2017-07-08 21:19 | NUR ---
24 HR chart check completed.
--- NOTE | 2017-07-09 06:07 | NUR ---
PT HAS SLEPT QUIETLY THROUGHOUT THE SHIFT PAST 2129.
[2017-07-09 07:36] VITALS: BP 143/80
--- NOTE | 2017-07-09 07:44 | NUR ---
PHYSICAL THERAPY Pt seen this AM 1:1 for her therapy session and improving from yesterday. Pt was up in the day room at this time in her [facility], body alarm on. Transfer sit/stand and standing balance MOD A X 1. Followed by gait with MOD CHIROPRACTIC ASSISTANT X 1, 150' X 2, with verbal cueing for gait, balance, turn safety and stop/start gait and just having a better day today. Pt was tired after this and wanting to quit, breakfast in, treatment time 25 min. MICHAELA ABAD RADIATION PROTECTION ENGINEER.
--- NOTE | 2017-07-09 08:18 | NUR ---
OCCUPATIONAL THERAPY CO-SIGN I approve of the Occupational Therapy notes written above. SLIME AMARAL OTR/Dean
--- NOTE | 2017-07-09 08:20 | NUR ---
TREATMENT TEAM WAS HELD WITHMELLY CROCKETT, RN, AT, SW, MEDICAL STUDENT AND HISTOLOGY SPECIALIST. WAITING FOR PASRR TO BE APPROVED. [facility] WAS HERE LAST NIGHT TO COMPLETE ASSESSMENT. DR. CROCKETT STATED IF STARTS SOMEONE ON [facility] THEY HAVE DEMENTIA. PT PENDING DISCHARGE FOR FRIDAY OR FRIDAY.
--- NOTE | 2017-07-09 10:04 | NUR ---
Alona from of [place] wondering about pt. d/c for today. Told her we are waiting on her pasrr, then can schedule d/c.
--- NOTE | 2017-07-09 11:06 | NUR ---
Trivia & Goal setting Patient attended group with others however with limited participation due to being lethargic. Patient able to set goal of getting healthy to be able to return home. Patient throughout group did not report any hallucinations or delusions to staff.
--- NOTE | 2017-07-09 14:50 | NUR ---
ORLY IS COMPLIANT WITH MEDICATIONS. SHE IS ALERT AND ORIENTED TO PERSON AND PLACE. SOME CONFUSION IS PRESENT @ TIMES AND SHE IS NOTED TO STARE BLANKLY WELL. SHE DID EXPRESS SOME PARANOID IDEAS WHEN A REPEAT URINE SPECIMEN WAS REQUESTED BY N.P TODAY, HOWEVER, WHEN ASKED TO ELABORATE, SHE WOULD NOT. SOME HESITANCY IS NOTED IN RESPONSES. NO OVERT S/S OF SENSORY DISTURBANCES OBSERVED. SHE DOES EXHIBIT AN UNSTEADY GAIT @ TIMES AND REQUIRES CLOSE OBSERVATION FROM STAFF. FALL PRECAUTIONS HAVE BEEN MAINTAINED. UTILIZING WHEELCHAIR TO TRANSPORT HERSELF ABOUT THE UNIT, BUT HAS REQUIRED REMINDING TO NOT ATTEMPT TO AMBULATE BY HERSELF. REFER TO [facility] FLOWSHEET FOR SPECIFIC MONITORING.
--- NOTE | 2017-07-09 15:52 | NUR ---
Positive Traits Patient did attend group as well as participated. Patient was quiet, not interacting with others. Patient reported no hallusionations or delusions to staff,
[2017-07-09 16:19] LABS: BILIRUBIN NEGATIVE (NEGATIVE); BLOOD 2+ (NEGATIVE); CLARITY CLOUDY (CLEAR); COLOR YELLOW (YELLOW); GLUCOSE NEGATIVE (NEGATIVE); KETONE NEGATIVE (NEGATIVE); LEUKO ESTERASE 3+ (NEGATIVE); NITRITE POSITIVE (NEGATIVE); UROBILINOGEN 0.2 E.U./dl (0.2-1.0)
[2017-07-09 16:37] LABS: WBC TNTC wbc/hpf (0-5)
--- NOTE | 2017-07-09 16:42 | NUR ---
URINE FOR UA/CULTURE SPECIMEN OBTAINED AND SENT TO LAB.
--- NOTE | 2017-07-09 17:07 | NUR ---
JOHANNA RECEIVED MESSAGE FROM NAYELI BENAVIDEZ THAT SHE NEEDED MEDICATION LIST. JOHANNA FAXED MEDICATION LIST TO NAYELI.
[2017-07-09 20:00] VITALS: BP 110/70
--- NOTE | 2017-07-10 01:28 | NUR ---
24 HR chart check completed.
--- NOTE | 2017-07-10 06:15 | NUR ---
PT HAS BEEN OBSERVED ON Q 15 MIN CHECKS & HAS SLEPT QUIETLY THROUGHOUT THE SHIFT PAST 2200.
--- NOTE | 2017-07-10 07:20 | NUR ---
07/09/17 Afternoon Positive Traits Patient attended group this afternoon as well as participated. Patient was quiet and withdrawn not speaking unless spoken to. Patient was appropriate throughout group,verbaliziing no hallutionations or delusions to staff
--- NOTE | 2017-07-10 08:08 | NUR ---
PHYSICAL THERAPY Abbie seen this AM and is improving with her therapy. Pt was up in the day room at this time. Wheeled Abbie out into the willis. Transfer sit/stand, standing balance MIN A X 1. Gait total 165' X 2, one sitting rest with Pt pushing her wheelchair. Working in gait balance with gait backwards, right and left side stepping, and 360 turn with MOD EDITOR FARM JOURNAL X 1, with cueing for each. End with going over act Ex to bilateral LE of marching, LAQ's, and ankle pumps. Pt back up in the day room for her breakfast. MICHAELA ABAD ORACLE FUSION MIDDLEWARE ARCHITECT.
[2017-07-10 08:17] VITALS: BP 116/69
--- NOTE | 2017-07-10 08:40 | NUR ---
Treatment team was held with the following: Dr. Wilson, Medical Student, Resident, TOBACCO SORTER, RNs, ATs, and SW. Pt has UTI now and started on antibiotic. Dr. Wilson recommended a neurology consult after discharge. Pending discharge for Friday07-10-17.
--- NOTE | 2017-07-10 10:25 | NUR ---
SW RECEIVED [facility] RESULTS FOR APPROVAL FOR [place]. COPY ON CHART.
--- NOTE | 2017-07-10 13:22 | NUR ---
Morning exercises, "strawberry" cornhole and remenissing group Patient attended and participated in group appropriately. Patient engaged in exercises along with standing for cornVasoNova game with peers. Patient able to discuss preferred foods along with previous work history. Patient alert and appropriate throughout group.
--- NOTE | 2017-07-10 14:28 | NUR ---
Occupational Therapy 1:1 treatment this date x 44 minutes for dressing, LUE strengthening, functional transfers,left visual attention.Patient transfered for w/c to bed w/ CGA. She was able to participate in trunk therapeutic exerises to strengthen core muscles for improved sitting balance and improve left disregard. Patient then c/o "needing new bra" because her left side hurts. Upon visual examination of left side, OTR noticed a red/contused area approximately 5 cm long x 1/2 cm wide over lateral mid trunk with skin irritation distally. Nurse notified and after observation of patients posture it appears as if patient is strongly leaning to left against wc arm rest. OTR and nursing used wedge cushions to support patient's back and reduce pressure and pain. If patient is unable to tolerate both cushions in w/c length olivares, OT suggested placing left cushion along the arm rest at an elevated height above arm rest to support trunk from pt's axilla to seat of w/c. Sonia Rodarte OTR/Dean
--- NOTE | 2017-07-10 14:30 | NUR ---
Abbie is compliant with prescribed medications. On 1:1 interactions with staff she does answer questions asked appropriately. Expressed some paranoid ideas regarding her drink @ mealtime and her medications, as well. When reality is presented she is noted to stare @ staff and did not respond. Some hesitancy is noted in responses @ time. Dr. Wilson in to see her today. Mood is depressed. No overt s/s of sensory disturbances are noted. She has been observed to lean to her left side @ intervals throughout the day when utilizing wheelchair. OT in to see her and Abbie expressed some soreness on her left side due to leaning on the wheelchair. OT made suggestions to correct her posture. Wedge was placed on left side of wheelchair by OT to align posture. Slight bruising is noted on left side @ point of leaning. N.P in to see her today and Macrodantin was prescribed for UTI. Refer to [facility] flowsheet for specific monitoring.
--- NOTE | 2017-07-10 15:15 | NUR ---
Inspirational craft group Patient attended and participated in group with peers. Patient able to state items that make them happy when feeling sad. Patient reports feeling better and not having halucinations/delusions. Patient pleasant and smiling throughout treatment.
--- NOTE | 2017-07-10 15:52 | NUR ---
ESTEBAN FROM [facility]. JOHANNA RETURNED CALL. NANCY RECEIVED BACK AND DR. CRCOKETT SAID TO [facility] ON Friday07-11-17. JOHANNA WILL LET YASHIRA KNOW TIME OF COMPOUND FINISHER ONCE TRANSPORTATION IS ARRANGED.
--- NOTE | 2017-07-10 15:54 | NUR ---
SW ATTEMPTED TO CALL [facility] TO NOTIFY OF DISCHARGE FOR 07-11-17 AND PHONE LINE WAS BUSY.
--- NOTE | 2017-07-10 16:00 | NUR ---
JOHANNA SPOKE WITH MARKY JORDAN ABOUT DISCHARGE FOR Friday07-11-17. AVIATION TECHNICIAN WILL BE BETWEEN 10-11AM TENTATIVELY IF NO ER RUNS ARE NEEDED.
[2017-07-10 19:43] VITALS: BP 119/62
--- NOTE | 2017-07-10 20:35 | NUR ---
PT VOICING COMPLIANTS OF HEADACHE LEVEL OF 6 OUT OF 10 PRN TYLENOL GIVEN
--- NOTE | 2017-07-10 21:30 | NUR ---
PT SLEEPING AT THIS TIME PRN TYLENOL EFFECTIVE
--- NOTE | 2017-07-11 04:24 | NUR ---
24 HR chart check completed.
--- NOTE | 2017-07-11 05:38 | NUR ---
PT MEDICATION COMPLIANT WITH OUT DIFFICULTY. VOICED NO PARINOID DELUSIONS THIS SHIFT. SOCALIZING WITH PEER DURING HS SNACK AND GROUP. PLESANT AND COOPERATIVE WITH MARKED CONFUSION AT TIMES REQUIRING MUCH REDIRECTION. PT CLIMBING OUT OF BED SOUNDING ALARM MULTIPLE TIMES THROUGHOUT NIGHT FOR TOILITING. PT RE EDUCATED ON USE OF CALL LIGHT. UNSTEADY GAIT AND LEAN IMPROVING THIS SHIFT. CONTINUE MEDICATIONS PERSCRIBED AND POC. PT SLEPT 6 HOURS INTURRUPTED
--- NOTE | 2017-07-11 08:22 | NUR ---
PHYSICAL THERAPY Pt seen this AM 1:1, and was up in ther day room in her wheelchair with body alarm on. Transfer sit/stand CG X 1. gait total today 160' X 2, CGA X 1, one sitting rest. Working to today gait balance with single leg stand, gait backwards, rigth and left side stepping, X 2, with MOD A X 1. End with going over act Ex to bilateral LE of marching, LAQ's, ankle pumps. Pt back up in the day room. MICHAELA ABAD BODY DESIGN CHECKER.
[2017-07-11] MEDS ORDERED: EXELON13.3 MG/21 T (08:34)
[2017-07-11] MEDS ORDERED: TRIHEXYPHENIDYL2 M3 PO (08:34)
[2017-07-11] MEDS ORDERED: INVEGA SUSTENN234 MG IM (08:34)
[2017-07-11] MEDS ORDERED: LOPRESSOR25 MG PO (09:19)
[2017-07-11] MEDS ORDERED: NITROFURANTOIN100 M9 PO (09:20)
--- NOTE | 2017-07-11 09:37 | NUR ---
Treatement Team was held withthe Folowing: Dr. Wilson, Resident, RNs, ATs, SW. Pt to be discharge to [facility]. Pt informed Dr. Wilson that after rehab , she'd be staying with her Dtr and she was done with her . Dr. Wilson suggested Pt see a Nuerologist after discharge. SW will notify facility to schedule appointment.
--- NOTE | 2017-07-11 09:40 | NUR ---
Rowena reached Aba and notified him that Pt was being discharge to [facility] today between 10 - 11am. will call ROWENA later to get address and phone number.
--- NOTE | 2017-07-11 09:50 | NUR ---
ORLY IS ALERT AND ORIENTED WITH PERIODS OF CONFUSION AND ST/LT MEMORY DEFICITS. NO HALLUCINATIONS, DELUSIONS, OR BEHAVIORS NOTED. MEDICATION COMPLIANT WITHOUT DIFFICULTY. ALL TREATMENT GOALS MET FOR DISCHARGE. NURSE TO NURSE CALLED TO [facility]. Discharge instructions reviewed with patient/facility. Facility receptive receptive and verbalizes understanding. Follow-up care arranged. Written instructions given to patient/facility.
[2017-07-11 09:51] VITALS: BP 124/80
--- NOTE | 2017-07-11 10:08 | NUR ---
SW HAD PT SIGN DISCHARGE PAPERWORK. PAPERS COPIED FOR FACILITY AND PT. PT DISCHARGED TO [facility]IA [facility]. PT STATED THAT WHEN SHE IS FINISHED WITH REHAB , SHE IS GOING TO STAY WITH DTR DUE TO GETTING A GRILFRIEND. PT FEELS THAT WHILE SHE IS IN REHAB WILL FIND ANOTHER WOMEN.
--- NOTE | 2017-07-11 10:20 | NUR ---
OCCUPATIONAL THERAPY CO-SIGN I approve of the Occupational Therapy notes written above. SLIME AMARAL OTR/Dean
--- NOTE | 2017-07-14 07:47 | NUR ---
PHYSICAL THERAPY CO-SIGN I approve of the Phyical Therapy notes written above. NENA KEEN PT
== END 2017-07-11 10:08 | disposition other institution (70) | DRG 885 ==
LOC: 3N 15:42
PROVIDERS: Internal Medicine Nephrology; Registered Nurse; ADMIT Psychiatry & Neurology Psychiatry
DX: F25.9 Schizoaffective disorder, unspecified (principal); E87.8 Other disorders of electrolyte and fluid balance, not elsewhere classified; E44.0 Moderate protein-calorie malnutrition; E87.0 Hyperosmolality and hypernatremia; G45.9 Transient cerebral ischemic attack, unspecified; N39.0 Urinary tract infection, site not specified; F23 Brief psychotic disorder; G40.909 Epilepsy, unspecified, not intractable, without status epilepticus; E03.9 Hypothyroidism, unspecified; E78.5 Hyperlipidemia, unspecified; N18.9 Chronic kidney disease, unspecified; R26.81 Unsteadiness on feet; R31.9 Hematuria, unspecified; D72.829 Elevated white blood cell count, unspecified; R73.9 Hyperglycemia, unspecified; F41.9 Anxiety disorder, unspecified; E55.9 Vitamin D deficiency, unspecified; Z86.711 Personal history of pulmonary embolism; Z82.49 Family history of ischemic heart disease and other diseases of the circulatory system; Z68.22 Body mass index [BMI] 22.0-22.9, adult

== ENCOUNTER 2018-09-19 16:10 | Inpatient (IN) | payer MEDICARE ==
[~2018-09-19] VITALS: Ht 157.4 cm; Wt 50.0 kg
--- NOTE | ~2018-09-19 | PR ---
[place], [place] PROGRESS NOTE NAME: ORLY BABCOCK UNIT #: [id number] ROOM: 525 DOCTOR: MARISA SIERRADECEMBER BIRTHDATE: [birth year] DOS: 09/23/2018 SUBJECTIVE: The patient is being followed for an ESBL E. coli. She is currently receiving Macrobid. She is tolerating it without issue. She states she has poor appetite though. No nausea or vomiting, no diarrhea. Denies any pain or shortness of breath. She is currently on fluids for her high sodium. The patient is somewhat of a poor historian. Has significant mental difficulties. LABORATORY DATA: Sodium 151, BUN 11, creatinine 0.65. WBC is 97.3, pulse 67, respirations 18, BP 115/56. No fevers. PHYSICAL EXAMINATION: GENERAL: A 68-year-old female, in no acute distress. HEAD, EYES, EARS, NOSE AND THROAT: Normocephalic, no thrush. LUNGS: Clear to auscultation bilaterally. Respirations even and unlabored. HEART: Regular rhythm. No murmur appreciated. ABDOMEN: Soft, nondistended. Sheffield catheter with clear yellow urine. EXTREMITIES: No edema or deformity. ASSESSMENT: Extended-spectrum beta-lactamases Escherichia coli urinary tract infection. PLAN: Continue Macrobid for a total of 10 days of treatment. She is already on day 4 of treatment and she can be charged back to her ECF. PRIYANKA CUNNINGHAM CNP Janay Kearns MD CM:PNTRANS [id number] MARISA SIERRA 09/23/[id number] interface
--- NOTE | ~2018-09-19 | CON ---
[place], [place] REPORT OF CONSULTATION NAME: ORLY BABCOCK UNIT #: [id number] ROOM: 525 DOCTOR: MARISA SIERRA,DECEMBER BIRTHDATE: [birth year] DOS: 09/20/2018 HISTORY OF PRESENT ILLNESS: The patient is a 68-year-old female who was admitted from [facility] with increased confusion over the last few days. No documentation of fevers or anything else along those lines. She had a urine culture done, which can be found in the electronic health record. On September 14, it grew an ESBL E. coli. They had been treating her originally with [facility]phin at the [facility]. She was placed on Merrem when she was admitted here. The E. coli is sensitive to Macrodantin. She does not have any drug allergies: She has no leukocytosis. She has a chronic Sheffield catheter due to stage 3 to 4 decubitus on her coccyx. The patient herself is unable to give any history due to dementia and mental illness. Again, she has had no leukocytosis, no fever since admission. Her admitting urinalysis was positive for nitrites, +3 leukocyte esterase, wbc's 51-100 per high powered field. Admitting blood cultures were sterile. Unable to obtain any review of systems from the patient. She states she feels okay and she does deny pain, but she is really not able to answer questions or answer anything reliably for what little bit of verbal response she does give. No emesis or diarrhea per nursing. PAST MEDICAL HISTORY: As above, as well as anxiety, bipolar disease, C. diff, coronary artery disease, chronic kidney disease, hyperlipidemia, major depressive disorder, hyperparathyroidism, PE, schizoaffective disorder, severe manic, bipolar, tonsillectomy, vitamin D deficiency. SOCIAL HISTORY: Chronic [facility] resident, nonsmoker, nondrinker, no documented illicit drug use. History again is obtained per review of the chart as the patient is not a reliable historian. FAMILY MEDICAL HISTORY: Mother at the age of 92. Father at the age of 80, both with coronary artery disease, also history of COPD and depression. LABORATORY DATA: WBC is 8.4, platelets 309. BUN 13, creatinine 0.69. LFTs within normal limits. UA and cultures as above. CURRENT MEDICATIONS: Dakin solutions for her coccyx decubitus, vitamin D, Prozac, Sensipar, Protonix, Merrem, Artane, Ditropan, Lactinex, Eliquis, MiraLax, Nitrostat, Restoril. REVIEW OF SYSTEMS: Again, unable to obtain given the patient's cognitive status. PHYSICAL EXAMINATION: VITAL SIGNS: Temperature 98.4, pulse 62, respirations 20, BP 109/49: GENERAL: A 68-year-old female who appears younger than her stated age, in no acute distress, nontoxic in appearance. HEAD, EYES, EARS, NOSE AND THROAT: Normocephalic. NECK: Supple. No thrush. LUNGS: Clear to auscultation bilaterally. Respirations even and unlabored. HEART: Regular rhythm. No murmur appreciated. ABDOMEN: Soft, nondistended, nontender. [place], [place] REPORT OF CONSULTATION NAME: ORLY BABCOCK UNIT #: [id number] ROOM: [facility] DOCTOR: MARISA SIERRA,DECEMBER BIRTHDATE: [birth year] EXTREMITIES: No edema or deformity. SKIN: Warm, dry, free of rashes. She has stage 3-4 coccyx decubitus, which is fairly clean. She does have a darkened area where it appears she has had increased pressure recently, but otherwise there is no odor, no cellulitis and no pus. Skin is otherwise warm, dry, free of rashes. GENITOURINARY: Sheffield catheter draining fairly clear yellow urine, some sediment, strong odor. ASSESSMENT AND PLAN: Urinary tract infection versus bacteriuria with extended-spectrum beta-lactamases Escherichia coli. She is currently on Merrem. If this proves to be the same Escherichia coli that she was positive with on the , which I would suspect it is, then she could be switched over to oral Macrodantin and discharged back to [facility]. The patient should not have any repeat urine cultures done. Adequate treatment appears to be able to need only a short course or even a 3 gram oral dose of fosfomycin as an alternative to further IV antibiotics. Again, repeat urine culture should not be obtained unless the patient is actually symptomatic; otherwise, the culture will reflect colonization of the Sheffield catheter. Thank you for the consultation. PRIYANKA RIGO CUNNINGHAM Janay Kearns MD CM:CONSTR:REPORT OF CONSULTATION 1801 09/20/18 [id number] interface
--- NOTE | ~2018-09-19 | PR ---
[place], [place] PROGRESS NOTE NAME: ORLY BABCOCK UNIT #: [id number] ROOM: 525 DOCTOR: JANAY KEARNS MD BIRTHDATE: [birth year] DOS: 09/21/2018 ADDENDUM: This is an addendum to the progress note done by the nurse practitioner, Sanaz Nunez. I agree with the assessment and plan. I reviewed the labs and imaging, done the necessary changes in the note. Janay Kearns MD CM:PNTRANS [id number] JANAY KEARNS MD 11/05/18 0827 interface
--- NOTE | ~2018-09-19 | CON ---
[place], [place] REPORT OF CONSULTATION NAME: ORLY BABCOCK UNIT #: [id number] ROOM: 525 DOCTOR: KELLY KEARNS MD BIRTHDATE: [birth year] DOS: 09/20/2018 ADDENDUM I agree with the assessment and plan. I reviewed the notes, made the necessary changes. Kelly Kearns MD CM:CONSTR:REPORT OF CONSULTATION 1853 11/05/18 0836 interface
--- NOTE | ~2018-09-19 | PR ---
[place], [place] PROGRESS NOTE [id number] UN[facility] #: [id number] ROOM: 525 DOCTOR: MARISA SIERRADECEMBER BIRTHDATE: [birth year] DOS: 09/21/2018 SUBJECTIVE: The patient has been followed for an ESBL E. coli UTI. She has chronic Sheffield catheter for her due to her decubitus. She is alert, looks a little better today. She has more verbally responsive. She denies any pain. She has no documented emesis or diarrhea. She has had no fevers. Her urine culture is growing ESBL E. coli. She is currently on Merrem. WBCs are normal. No rashes. VITAL SIGNS: Temperature 98.2, pulse 69, respirations 20, BP 147/66. LABORATORY DATA: Cultures as reviewed above. WBCs 8.6, platelets 282. BUN 11, creatinine 0.71. CURRENT MEDICATIONS: Exelon, Dakin's for her decubitus, vitamin D, Prozac, Sensipar, Protonix, Merrem, Artane, Ditropan, Lactinex, Eliquis, MiraLax powder, Nitrostat, Restoril. PHYSICAL EXAMINATION: GENERAL: A 68-year-old female, in no acute distress. HEAD, EYES, EARS, NOSE AND THROAT: Normocephalic, no thrush. LUNGS: Clear to auscultation bilaterally. Respirations even and unlabored. HEART: Regular rhythm. No murmur appreciated. ABDOMEN: Soft, nontender, nondistended. EXTREMITIES: No edema. Sheffield catheter draining clear yellow urine. ASSESSMENT: Extended-spectrum beta-lactamases Escherichia coli urinary tract infection. PLAN: To treat. She can be discharged either with a one-time dose of 3 grams of p.o. fosfomycin or she could complete a 7-day course with Macrodantin. Currently, she is on Merrem, which could be changed over prior to her discharge again to oral. She is receiving fluids currently. Okay for discharge from an ID perspective. ADDENDUM I agree with the assessment and plan made by the nurse practitioner, Sanaz Cunningham. I reviewed the imaging and the labs and made the necessary changes in the note. SANAZ RIGO CUNNINGHAM [place], [place] PROGRESS NOTE NAME: ORLY BABCOCK UNIT #: [id number] ROOM: [facility] DOCTOR: MARISA SIERRA BIRTHDATE: [birth year] Janaychris Kearns MD CM:TARA [id number] 1500 DECEMBER MARISA SIRERA 10/20/18 0504 interface
[~2018-09-19 16:10] MED LIST changes: +DAKIN'S473 ML T; +DULCOLAX10 M1 R; +EXELON13.3 MG/21 T; +FLEET ENEMA 13133 ML R; +FLORASTOR250 MG PO; +IRON325 M1 PO; +KLOR-CON M2020 ME1 PO; +LOPRESSOR25 MG PO; +MAALOX MAXIMUM355 ML PO; +MACROBID100 M1 PO; +MILK OF MA400 MG/5 M PO; +MIRALAX17 GM PO; +MULTIPLE VITAM1 EAC1 PO; +NITROFURANTOIN100 M9 PO; +NITROSTAT0.4 MG SL; +NYSTATIN1 EACH T; +PROZAC20 MG PO; +RIVASTIGMINE TAR6 M1 PO; +SENNA8.6 MG PO; +SENSIPAR30 MG PO; +TRIHEXYPHENIDYL2 M3 PO; +TYLENOL325 M2 PO; +VANCOCIN250 M1 PO; +ZANTAC 300300 MG PO
[2018-09-19 16:23] VITALS: BP 140/90
[2018-09-19 16:34] LABS: BASO # 0.1 10*3/uL (0.0-0.1); BASO % 0.5 % (0.0-1.0); EOS # 0.1 10*3/uL (0.0-0.4); EOS % 1.3 % (1.0-4.0); HEMATOCRIT 37.4 % (37.0-47.0); HEMOGLOBIN 11.3 g/dl (12.0-16.0); LYMPH # 1.4 10*3/uL (1.3-4.4); LYMPH % 15.5 % (27.0-41.0); MEAN CELL VOLUME 83.3 fl (81.0-99.0); MEAN CORPUSCULAR HGB 25.2 pg (27.0-31.0); MEAN CORPUSCULAR HGB CONC 30.2 g/dl (33.0-37.0); MEAN PLATELET VOLUME 10.9 fl (9.6-12.3); MONO # 1.2 10*3/uL (0.1-1.0); MONO % 12.6 % (3.0-9.0); NEUT # 6.4 10*3/uL (2.3-7.9); NEUT % 69.7 % (47.0-73.0); PLATELET COUNT AUTOMATED 334 10*3/uL (130-400); RED BLOOD COUNT 4.49 10*6/uL (4.10-5.10); RED CELL DISTRI WIDTH 18.7 % (0-14.5); WHITE BLOOD COUNT 9.2 10*3/uL (4.8-10.8)
--- NOTE | 2018-09-19 16:39 | NUR ---
made referral to [facility], waiting to hear from them.
[2018-09-19 16:43] LABS: BILIRUBIN NEGATIVE (NEGATIVE); BLOOD 2+ (NEGATIVE); CLARITY SL CLOUDY (CLEAR); COLOR YELLOW (YELLOW); GLUCOSE NEGATIVE (NEGATIVE); KETONE NEGATIVE (NEGATIVE); LEUKO ESTERASE 3+ (NEGATIVE); NITRITE POSITIVE (NEGATIVE); PH 6.5 (5.0-9.0); SPECIFIC GRAVITY 1.015 (1.005-1.030); UROBILINOGEN 0.2 E.U./dl (0.2-1.0)
[2018-09-19 16:49] LABS: BACTERIA 3+; MUCOUS 1+
[2018-09-19 16:50] LABS: ACT PARTIAL THROMBO TIME 25.6 SECONDS (20.8-31.5); ALBUMIN 3.1 gm/dl (3.1-4.5); ALKALINE PHOSPHATASE 115 U/L (45-117); BUN 14 mg/dl (7-24); CHLORIDE 115 mmol/L (98-107); CREATININE 0.87 mg/dL (0.55-1.02); INTERNATIONAL NORM RATIO 1.3 (2.0-3.5); POTASSIUM 3.6 mmol/L (3.5-5.1); SGOT/AST 33 IU/L (3-35); SGPT/ALT 17 U/L (12-78); SODIUM 148 mmol/L (136-145)
[2018-09-19 16:56] LABS: RBC 41-50 rbc/hpf (0-2); WBC 51-100 wbc/hpf (0-5)
[2018-09-19 16:58] LABS: URIC ACID CRYSTALS 1+
[2018-09-19 17:36] VITALS: BP 140/88
--- NOTE | 2018-09-19 17:45 | NUR ---
Time: 1744 A 68 year old female admitted to 5E under services of JB STARKEY DO. Pt. arrived via stretcher from ER. Chief complaint: uti failed outpt treatment. [facility] SIMS
--- NOTE | 2018-09-19 18:01 | NUR ---
MERREM WAS STILL INFUSING WHEN PATIENT WAS TAKEN UPSTAIRS... ABOUT 40ML LEFT...
[2018-09-19 18:06] VITALS: BP 113/51
[2018-09-19] MEDS ORDERED: MUCINEX ER600 MG PO (18:07)
--- NOTE | 2018-09-19 18:12 | NUR ---
Dr. Reich notified that med rec was updated and notified of pt wound, staged as unstageable by ER, covered in slough and 4 cm x 3 cm x 0.75 cm to coccyx.
--- NOTE | 2018-09-19 18:49 | NUR ---
Dr. Waters notified of consult. States that he will see pt in am. Described wound to him, notified unstageable per ER, 4 cm x 3 cm and wound bed noted to have yellow slough. States he may hold her breakfast possibly in AM. States he will place orders.
--- NOTE | 2018-09-19 19:20 | NUR ---
BEDSIDE REPORT OBTAINED FROM KINSEY-RN. PATIENT IS LAYING IN BED, AWAKE AND ALERT TO SELF. PATIENT VOICED NO COMPLAINTS AT THIS TIME. NO S&S OF DISTRESS NOTED, RESP ARE ERND ON ROOM AIR. BED IS LOCKED IN LOWEST POSITION, ALARM MAINTAINED. CALL LIGHT LEFT WITHIN REACH.
[2018-09-19 20:00] VITALS: BP 104/66; BP 94/67
--- NOTE | 2018-09-19 20:47 | NUR ---
WAS ANXIOUS AND SEEMED AGGITATED, PULLING ON RITTER CATH BAG AND RUMMAGING THROUGH BLANKETS. PATIENT STATED SHE WAS TIRED. MEDICATED WITH PRN RESTORIL. WILL MONITOR EFFECTIVENESS.
--- NOTE | 2018-09-19 21:00 | NUR ---
Hep Lock discontinued, LEFT WRIST. Site symptomatic, PATIENT PULLED IV OUT. Pressure applied. Sterile dressing applied. ZEINA HAND
--- NOTE | 2018-09-19 21:05 | NUR ---
IV started left forearm with #20 angiocath after 0 attempts. The IV site was prepped with Chloraprep. Heparin lock attached. IV solution NS infusing at 100 cc/hr. Sterile dressing applied. Patient tolerated precedure well. Procedure performed according to [facility] policy & procedure. ZEINA HAND
--- NOTE | 2018-09-19 21:47 | NUR ---
RESTORIL APPEARS TO BE EFFECTIVE. PATIENT NO LONGER AGGITATED AND RESTING COMFORTABLY, SLEEPING WITH EYES CLOSED. NO S&S OF DISTRESS NOTED, RESP ERSD ON ROOM AIR. CALL LIGHT LEFT WITHIN REACH.
[2018-09-20] VITALS: BP 110/63
--- NOTE | 2018-09-20 02:00 | NUR ---
PATIENT ASLEEP. CALL LIGHT LEFT WITHIN REACH.
[2018-09-20 06:41] LABS: BASO # 0.1 10*3/uL (0.0-0.1); BASO % 0.6 % (0.0-1.0); EOS # 0.1 10*3/uL (0.0-0.4); EOS % 1.6 % (1.0-4.0); HEMATOCRIT 39.5 % (37.0-47.0); HEMOGLOBIN 11.3 g/dl (12.0-16.0); LYMPH # 1.1 10*3/uL (1.3-4.4); LYMPH % 13.5 % (27.0-41.0); MEAN CELL VOLUME 85.5 fl (81.0-99.0); MEAN CORPUSCULAR HGB 24.5 pg (27.0-31.0); MEAN CORPUSCULAR HGB CONC 28.6 g/dl (33.0-37.0); MEAN PLATELET VOLUME 11.2 fl (9.6-12.3); MONO # 0.8 10*3/uL (0.1-1.0); MONO % 9.7 % (3.0-9.0); NEUT # 6.2 10*3/uL (2.3-7.9); NEUT % 74.2 % (47.0-73.0); PLATELET COUNT AUTOMATED 309 10*3/uL (130-400); RED BLOOD COUNT 4.62 10*6/uL (4.10-5.10); WHITE BLOOD COUNT 8.4 10*3/uL (4.8-10.8)
[2018-09-20 06:52] LABS: ALBUMIN 3.1 gm/dl (3.1-4.5); ALKALINE PHOSPHATASE 108 U/L (45-117); BUN 13 mg/dl (7-24); CHLORIDE 119 mmol/L (98-107); CHOLESTEROL 165 mg/dL (<200); CREATININE 0.69 mg/dL (0.55-1.02); HDL CHOLESTEROL 36 mg/dl (40-60); LDL CHOLESTEROL 108 mg/dL (9-159); PHOSPHOROUS 3.9 mg/dL (2.5-4.9); POTASSIUM 3.9 mmol/L (3.5-5.1); SGOT/AST 28 IU/L (3-35); SGPT/ALT 16 U/L (12-78); SODIUM 152 mmol/L (136-145); TOTAL PROTEIN 6.8 gm/dL (6.4-8.2); TRIGLYCERIDES 106 mg/dl (<150); VLDL CHOLESTEROL 21 mg/dL (6-40)
[2018-09-20 06:57] LABS: THYROID STIM HORMONE (HS) 0.847 uIU/ml (0.358-4.75)
[2018-09-20 08:00] VITALS: BP 112/58
[2018-09-20 08:58] LABS: VITAMIN D, 25-HYDROXY 20.4 ng/mL (30-100)
[2018-09-20 12:00] VITALS: BP 122/60
[2018-09-20 16:00] VITALS: BP 109/49
[2018-09-20 20:00] VITALS: BP 132/66
--- NOTE | 2018-09-20 20:00 | NUR ---
Patient resting quietly with no c/o discomfort. Respirations easy and regular. Vital signs stable. No overt distress. ELICEO SCOTT
--- NOTE | 2018-09-20 20:09 | NUR ---
24 HR chart check completed.
[2018-09-21] VITALS: BP 115/54
--- NOTE | 2018-09-21 06:09 | NUR ---
PHYSICAL THERAPY PAtient is intermediate care and jazmin lift. PT not appropriate. Recommend daily ROM with nursing care. Thank you for this referral. Racheal Gannon,PT
[2018-09-21 06:25] LABS: BASO # 0.1 10*3/uL (0.0-0.1); BASO % 0.6 % (0.0-1.0); EOS # 0.2 10*3/uL (0.0-0.4); EOS % 2.2 % (1.0-4.0); HEMATOCRIT 37.1 % (37.0-47.0); HEMOGLOBIN 10.9 g/dl (12.0-16.0); LYMPH # 1.4 10*3/uL (1.3-4.4); LYMPH % 15.7 % (27.0-41.0); MEAN CELL VOLUME 84.9 fl (81.0-99.0); MEAN CORPUSCULAR HGB 24.9 pg (27.0-31.0); MEAN CORPUSCULAR HGB CONC 29.4 g/dl (33.0-37.0); MEAN PLATELET VOLUME 11.2 fl (9.6-12.3); MONO % 11.5 % (3.0-9.0); NEUT % 69.7 % (47.0-73.0); PLATELET COUNT AUTOMATED 282 10*3/uL (130-400); RED BLOOD COUNT 4.37 10*6/uL (4.10-5.10); RED CELL DISTRI WIDTH 18.8 % (0-14.5); WHITE BLOOD COUNT 8.6 10*3/uL (4.8-10.8)
[2018-09-21 06:44] LABS: BUN 11 mg/dl (7-24); CHLORIDE 116 mmol/L (98-107); CREATININE 0.71 mg/dL (0.55-1.02); PHOSPHOROUS 2.5 mg/dL (2.5-4.9); POTASSIUM 3.7 mmol/L (3.5-5.1); SODIUM 148 mmol/L (136-145)
--- NOTE | 2018-09-21 07:25 | NUR ---
ORLY BABCOCK [id number] Please refer to the physician's history and physical for past medical history, comorbid conditions, and allergies. Diagnosis: ACUTE METABOLIC ENCEPHALOPATHY UTI DUE TO ESBL Ata Score: 16,AT RISK WOUND DESCRIPTIONS: Location of the wound: coccyx Type of wound: unstageable Thickness: Full Size: 5.5cm x 3.0cm x 1.0cm Tunneling: none Underminin o'clock - 9 o'clock 1.0cm Sinus Tract: none Presence of Exudate: Serosanguineous Amount: Moderate Color: Red Odor: Medium Periwound Skin Appearance: Erythema Wound edges: epibole Pain (associated with wound): none at time of assessment How does patient state this happened? pt unsure when this started Location of the wound: right elbow Type of wound: skin tear Thickness: Full Size: 0.6cm x 0.5cm x 0.1cm Tunneling: none Undermining: none Sinus Tract: none Presence of Exudate: Amount: None Color: Brown Odor: None Periwound Skin Appearance: Normal Wound edges: approximated Pain (associated with wound): none at time of assessment How does patient state this happened? pt unable to state how this happened Patient bilateral knee and bilateral feet have mulitple red blanchable areas at time of assessment. Surface the patient is resting on: Isoflex SKIN PREVENTION RECOMMENDATION: 1. Pressure redistribution support surface as appropriate 2. Elevate heels 3. Remove boots/TEDS every shift and reapply 4. Head of bed 30 degrees as tolerated 5. Assess nutrition and hydration 6. Manage moisture 7. Avoid the use of containment devices while in bed 8. Use absorptive products on surfaces limit layers of linens on bed 9. Turn and reposition every 1-2 hours in bed and every 1 hour in chair as tolerated 10. Weight shifts every 15 minutes while up in chair 11. Offloading with pillows or device to keep heels elevated off bed 12. Monitor skin at least every shift 13. Inspect under medical devices twice a day WOUND TREATMENT RECOMMENDATIONS: Wheelchair cushion when oob. Heel raiser pro boots while in bed. Skin tear guidelines: Cleanse right elbow with nss and apply sureprep around the wound therahoney to wound bed and cover with optifoam gentle. Continue dressing changes per Dr. Waters.
[2018-09-21 08:00] VITALS: BP 126/66
--- NOTE | 2018-09-21 11:07 | NUR ---
Call to Roro at [facility] to check on Oral Antibiotics. Plan for discharge today.
--- NOTE | 2018-09-21 11:16 | NUR ---
Spoke with Roro at [facility]. Antibiotics approved. Spoke with Nurse Vickie on 5E and Notified.
--- NOTE | 2018-09-21 11:16 | NUR ---
PT IS FPC AT [facility] AND CAN RETURN WHEN MEDICALLY STABLE.
[2018-09-21 12:00] VITALS: BP 147/66
--- NOTE | 2018-09-21 15:37 | NUR ---
DRESSING CHANGE COMPLETED PER PHYSICIAN ORDER. PT TOLERATED WELL. VOICES NO OTHER NEEDS AT THIS TIME. CALL LIGHT IN REACH.BED ALARM INTACT.
[2018-09-21 16:00] VITALS: BP 127/66
--- NOTE | 2018-09-21 16:22 | NUR ---
DRESSING CHANGE COMPLETED TO SACRAL WOUND AND RIGHT ELBOW PER PHYSICIAN ORDER. HEEL RISERS APPLIED PER ORDER. PT TOLERATED WELL. VOICES NO NEEDS AT THIS TIME. REPOSITIONED FOR COMFORT. CALL LIGHT IN REACH.
--- NOTE | 2018-09-21 17:55 | NUR ---
Patient resting quietly with no c/o discomfort. Respirations easy and regular. Vital signs stable. No overt distress. SOHAN TABOR
[2018-09-21 20:00] VITALS: BP 114/62
--- NOTE | 2018-09-21 20:05 | NUR ---
PATIENT ALERT & ORIENTED X3 FOR SHIFT ASSESSMENT. PATIENT RESPONDS SLOW TO QUESTIONS BUT APPROPRIATE. RESPIRATIONS EASY/REG ON RA. HEEL PROTECTORS ON. BED IN LOW POSITION, WHEELS LOCKED, BED ALARM ON, CALL LIGHT IN REACH.
[2018-09-22] VITALS: BP 109/55
[2018-09-22 05:52] LABS: BUN 11 mg/dl (7-24); CHLORIDE 114 mmol/L (98-107); CREATININE 0.67 mg/dL (0.55-1.02); POTASSIUM 3.7 mmol/L (3.5-5.1); SODIUM 147 mmol/L (136-145)
[2018-09-22 08:00] VITALS: BP 120/69
--- NOTE | 2018-09-22 11:04 | NUR ---
COCCYX WOUND DRESSING CHANGED AT THIS TIME PER ORDERS. PATIENT TOLERATED WELL.
[2018-09-22 12:00] VITALS: BP 137/69
[2018-09-22 16:00] VITALS: BP 129/69
[2018-09-22 20:00] VITALS: BP 138/69
--- NOTE | 2018-09-22 21:27 | NUR ---
PATIENT ADMINISTERED PM MEDICATIONS AT THIS TIME PER DRS ORDERS AT THIS TIME. PATIENT TOLERATED WELL. PATIENT DENIES ANY OTHER COMPLAINTS AT THIS TIME. CALL LIGHT WITHIN REACH. RN EDUCATED PATIENT CHILDREN'S TUTOR NURSERY LIGHT USAGE. PATIENT VERBALIZED UNDERSTANDING. RN WILL CONTINUE TO MONITOR THIS PATIENT
[2018-09-23] VITALS: BP 143/70
--- NOTE | 2018-09-23 04:30 | NUR ---
Recommend follow up for wound care in outpatient setting patient being discharge to another facility at this time.
--- NOTE | 2018-09-23 07:11 | NUR ---
PATIENT ASLEEP DURING BEDSIDE SHIFT REPORT.
[2018-09-23 07:12] LABS: BUN 11 mg/dl (7-24); CHLORIDE 116 mmol/L (98-107); CREATININE 0.65 mg/dL (0.55-1.02); POTASSIUM 3.5 mmol/L (3.5-5.1); SODIUM 151 mmol/L (136-145)
[2018-09-23 08:00] VITALS: BP 131/83
--- NOTE | 2018-09-23 09:40 | NUR ---
PT IS RETIREMENT CARE AT [facility] AND CAN RETURN WHEN MEDICALLY STABLE.
--- NOTE | 2018-09-23 11:58 | NUR ---
DR. GREENE AND RESIDENTS IN TO SEE PATIENT RE: PLAN OF CARE. NO DISCHARGE TODAY PER DR. GREENE DUE TO INCREASES SODIUM LEVEL THIS MORNING. RATE OF IVF D5W INCREASED FROM 40ML/HR TO 60ML/HR.
[2018-09-23 12:00] VITALS: BP 128/73
--- NOTE | 2018-09-23 13:08 | NUR ---
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 Notified facility that patient has ESBL/urine and is in contact isolation. They are aware and stated it is ok for patient to return while in isolation and the recommended ATB is also ok. Faxed patient updates, patient is ok to return when medically stable
[2018-09-23 16:00] VITALS: BP 116/56
[2018-09-23 20:00] VITALS: BP 136/68
[2018-09-24] VITALS: BP 122/68
--- NOTE | 2018-09-24 04:00 | NUR ---
PATIENT SETTING OFF BED ALARM AT THIS TIME, PATIENT APPEARS CONFUSED AND 2 RNS ATTEMPT TO REORIENT PATIENT, BUT ATTEMPTS WERE UNSUCCESSFUL. PATIENT HAS REMOVED IV SITE FROM THE LEFT ARM, AND HAS BLOOD ON MULTIPLE AREAS OF HER BODY FROM BLEEEDING IV SITE. BLEEDING CONTROLLED. DRY STERILE DRESSING APPLIED TO SITE. PATIENT HAS ALSO REMOVED DRESSING FROM COCCYX, SO NEW ONE WAS APPLIED AND DATED FOR TODAY. PATIENTS WAS CLEANED UP AND GOWN AND BED WERE CHANGED. PATIENT TOLERATED WELL. CALL LIGHT PLACED WITHIN REACH OF THE PATIENT AND BED ALARM WAS SET FOR PATIENT SAFETY. RN WILL CONITNUE TO JEY
--- NOTE | 2018-09-24 04:20 | NUR ---
NEW IV ESTABLISHED IN RIGHT FOREARM AT THIS TIME, USING ASEPTIC TECHNIQUE. PATIENT TOLERATED WELL. IN WRAPPED IN KERLIX TO PREVENT PATIENT FROM REMOVING SITE. IV FLUIDS INFUSING PER JASMYN MINER. CALL LIGHT WITHIN REACH. RN WILL CONTINEU TO JEY
[2018-09-24 07:00] LABS: BUN 10 mg/dl (7-24); CHLORIDE 109 mmol/L (98-107); POTASSIUM 2.9 mmol/L (3.5-5.1); SODIUM 146 mmol/L (136-145)
[2018-09-24 07:01] LABS: CREATININE 0.63 mg/dL (0.55-1.02)
[2018-09-24 08:00] VITALS: BP 138/73
[2018-09-24 12:00] VITALS: BP 134/76
[2018-09-24] MEDS ORDERED: VITAMIN D32000 UNI1 PO (14:31)
[2018-09-24] MEDS ORDERED: KLOR-CON M2020 ME1 PO (14:31)
[2018-09-24] MEDS ORDERED: NITROFURANTOIN100 M9 PO (14:31)
--- NOTE | 2018-09-24 14:42 | NUR ---
patient is discharged back to [facility]. Transportation scheduled for 5PM with [facility]. NH, nursing notified.
[2018-09-24 16:00] VITALS: BP 120/83
--- NOTE | 2018-09-24 16:00 | NUR ---
Patient resting UP IN CHAIR W/ BA ON AND with no c/o discomfort. Respirations easy and regular. Vital signs stable. No overt distress. ELICEO SCOTT
--- NOTE | 2018-09-24 17:55 | NUR ---
PT LEAVING IN CARE OF AMBULANCE.
--- NOTE | 2018-09-24 18:05 | NUR ---
REPORT CALLED TO CYNTHIA WALTERS, QUESTIONS ANSWERED.
== END 2018-09-24 15:55 | DRG 640 ==
LOC: ED 16:10 → 5E 17:11 → EDHOLD 17:11 → 5E 17:26
PROVIDERS: Internal Medicine; Nurse Practitioner Family; Student in an Organized Health Care Education/Training Program; ADMIT Internal Medicine
DX: E87.0 Hyperosmolality and hypernatremia (principal); G93.41 Metabolic encephalopathy; N39.0 Urinary tract infection, site not specified; Z16.12 Extended spectrum beta lactamase (ESBL) resistance; L89.150 Pressure ulcer of sacral region, unstageable; R31.9 Hematuria, unspecified; F31.9 Bipolar disorder, unspecified; F41.9 Anxiety disorder, unspecified; E55.9 Vitamin D deficiency, unspecified; E78.5 Hyperlipidemia, unspecified; F25.9 Schizoaffective disorder, unspecified; I25.10 Atherosclerotic heart disease of native coronary artery without angina pectoris; N18.9 Chronic kidney disease, unspecified; F03.90 Unspecified dementia, unspecified severity, without behavioral disturbance, psychotic disturbance, mood disturbance, and anxiety; Z82.49 Family history of ischemic heart disease and other diseases of the circulatory system; Z83.6 Family history of other diseases of the respiratory system; Z81.8 Family history of other mental and behavioral disorders

== ENCOUNTER 2018-10-04 00:52 | Inpatient (IN) | payer MEDICARE ==
[2018-10-04] VITALS (7 sets, daily range): BP systolic 104–153; BP diastolic 54–80
[~2018-10-04] VITALS: Ht 160 cm; Wt 46.3 kg
--- NOTE | ~2018-10-04 | CON ---
[place], [place] REPORT OF CONSULTATION NAME: [facility]ABCOCK [id number] UNIT #: [id number] ROOM: 424 DOCTOR: PHD GODFREY BLAYNE BIRTHDATE: [birth year] DOS: 10/13/2018 HISTORY OF PRESENT ILLNESS: The patient is a 68-year-old female referred by the hospitalist with concerns for suicidal ideation. At the present time, the patient is on the 4th floor at [facility]. The patient stated she is and has no children. However, her records indicate she has a daughter. She was confused and a poor historian. She is a resident at [facility]. PAST MEDICAL HISTORY: Coronary artery disease, chronic kidney disease, anxiety, dementia, elevated C-reactive protein, GI bleed, hyperlipidemia, normocytic anemia, pressure ulcer, primary hyperparathyroidism, pulmonary emboli, schizoaffective disorder, severe protein-calorie malnutrition, TIA, vitamin D deficiency. MEDICATIONS: Abilify, Exelon, Sensipar, aspirin, K-Dur, vitamin D, Artane, Prozac, Eliquis. GENERAL: The patient was lying comfortably in bed, in no apparent distress. NEUROLOGIC: She was awake, alert and oriented to person only. Eye contact and social skills were fair. She was vague in reporting her symptoms. PSYCHIATRIC: Affect was flat and mood was depressed. She endorsed increased thoughts of , suicide and how she may kill herself. She denied current suicidal ideation, but noted she has been thinking of "many ways one can kill themselves." Discussed the possibility of inpatient psychiatric treatment and she was agreeable to this. She states she is very lonely and that makes her depression worse. Speech was slow. Expressive and receptive language appeared within normal limits on a conversational basis. The patient appeared to be confused and had difficulty recalling her recent and remote history. She stated she lived in an apartment when she is in fact a resident at a residential. She could not name the president or any current events. She denied hallucinations and delusions. Insight and judgment are poor. DIAGNOSIS: Schizoaffective disorder, bipolar type; unspecified neurocognitive disorder. PLAN: Discussed the case with Dr. Wilson who knows the patient very well. He states that the patient would be appropriate for the unit once she is medically stable. [place], [place] REPORT OF CONSULTATION NAME: ORLY BABCOCK UNIT #: [id number] ROOM: 424 DOCTOR: GODFREY, PHD BLAYNE BIRTHDATE: [birth year] Loly Pillai, PhD CM:CONSTR:REPORT OF CONSULTATION 1136 10/14/18 0918 interface
--- NOTE | ~2018-10-04 | PR ---
[place], [place] PROGRESS NOTE NAME: ORLY BABCOCK UNIT #: [id number] ROOM: 424 DOCTOR: YAHIR CORRAL,KELLY BIRTHDATE: [birth year] DOS: 10/09/2018 ADDENDUM This is an addendum to the progress done by Sebastián Zheng. I agree with the assessment and plan. I examined the patient, reviewed the labs and made the necessary changes in the note. Kelly Sinclair MD CM:PNTRANS 1902 4 KELLY SINCLAIR MD 11/05/18 0806 interface
--- NOTE | ~2018-10-04 | CON ---
[place], [place] REPORT OF CONSULTATION NAME: ORLY BABCOCK UNIT #: [id number] ROOM: 424 DOCTOR: KELLY KEARNS MD BIRTHDATE: [birth year] DOS: 10/07/2018 ADDENDUM This is an addendum to the consultation done by Sebastián Zheng. I agree with the assessment and plan made by the resident. I examined the patient, reviewed the notes. Made the necessary changes in the notes. Kelly Kearns MD CM:CONSTR:REPORT OF CONSULTATION 1903 11/05/18 0828 interface
--- NOTE | ~2018-10-04 | CON ---
[place], [place] REPORT OF CONSULTATION NAME: ORLY BABCOCK UNIT #: [id number] ROOM: 424 DOCTOR: FRANCOISE ZUNIGA CNP BIRTHDATE: [birth year] DOS: 10/04/2018 CHIEF COMPLAINT: "I am depressed." HISTORY OF PRESENT ILLNESS: This is a 68-year-old white female who presented to the [facility] from [facility] for a psychological evaluation. At the [facility], the patient was reported to have suicidal ideations. The patient reported to staff in the ER that she continued to have thoughts of suicide. It was found that the patient did have a UTI, and she was admitted to the medical unit. MENTAL STATUS: The patient is alert and oriented to person, not place or time. There is no taty or hypomania noted. She was pleasant and cooperative with me. Her response time is delayed, minimal verbalization. No paranoia or delusions noted. No auditory or visual hallucinations noted. The patient reports that she does feel depressed and anxious at times. She reports that her appetite is good. She reports that she does continue to have suicidal thoughts; however, she has no plan, and she reports that there was a time in the past that she had attempted suicide, but will not elaborate on the type of attempt or when this was. DIAGNOSES: Schizoaffective disorder, major depressive disorder, recurrent, severe, dementia and bipolar disorder. PLAN: After meeting with the patient, we will plan to transfer her to the Behavioral Health Unit once she is considered medically stable. At that time, we will be able to further evaluate and treat the patient in order to stabilize her on her medication. Should you require any further intervention before then, please feel free to contact me at any time. Francoise Zuniga CNP CM:CONSTR:REPORT OF CONSULTATION 0948 10/04/18 1118 interface
[~2018-10-04 00:52] MED LIST changes: +MUCINEX ER600 MG PO; +VITAMIN D32000 UNI1 PO
[2018-10-04 01:07] LABS: BASO # 0.1 10*3/uL (0.0-0.1); BASO % 0.5 % (0.0-1.0); EOS # 0.1 10*3/uL (0.0-0.4); EOS % 0.6 % (1.0-4.0); HEMATOCRIT 43.5 % (37.0-47.0); LYMPH # 1.2 10*3/uL (1.3-4.4); LYMPH % 9.4 % (27.0-41.0); MEAN CELL VOLUME 85.5 fl (81.0-99.0); MEAN CORPUSCULAR HGB 25.5 pg (27.0-31.0); MEAN CORPUSCULAR HGB CONC 29.9 g/dl (33.0-37.0); MEAN PLATELET VOLUME 12.1 fl (9.6-12.3); MONO # 1.2 10*3/uL (0.1-1.0); MONO % 10.2 % (3.0-9.0); NEUT # 9.6 10*3/uL (2.3-7.9); PLATELET COUNT AUTOMATED 352 10*3/uL (130-400); RED BLOOD COUNT 5.09 10*6/uL (4.10-5.10); RED CELL DISTRI WIDTH 18.6 % (0-14.5); WHITE BLOOD COUNT 12.2 10*3/uL (4.8-10.8)
[2018-10-04 01:13] LABS: BILIRUBIN 1+ (NEGATIVE); BLOOD 3+ (NEGATIVE); CLARITY CLOUDY (CLEAR); COLOR YELLOW (YELLOW); GLUCOSE NEGATIVE (NEGATIVE); KETONE 1+ (NEGATIVE); LEUKO ESTERASE 3+ (NEGATIVE); NITRITE POSITIVE (NEGATIVE); SPECIFIC GRAVITY >= 1.030 (1.005-1.030); UROBILINOGEN 0.2 E.U./dl (0.2-1.0)
[2018-10-04 01:22] LABS: ALBUMIN 3.2 gm/dl (3.1-4.5); ALKALINE PHOSPHATASE 124 U/L (45-117); BUN 29 mg/dl (7-24); CHLORIDE 117 mmol/L (98-107); CREATININE 1.07 mg/dL (0.55-1.02); POTASSIUM 4.6 mmol/L (3.5-5.1); SGOT/AST 11 IU/L (3-35); SGPT/ALT 11 U/L (12-78); SODIUM 150 mmol/L (136-145); TOTAL PROTEIN 7.9 gm/dL (6.4-8.2)
[2018-10-04 01:23] LABS: ACETAMINOPHEN (TYLENOL) < 5.0 ug/ml (10-30); ETHYL ALCOHOL < 3.0 mg/dl (<3)
[2018-10-04 01:39] LABS: RBC TNTC rbc/hpf (0-2); WBC TNTC wbc/hpf (0-5)
[2018-10-04 01:40] LABS: BACTERIA 4+; YEAST 1+
[2018-10-04 01:49] LABS: URINE AMPHETAMINES < 1000 (1000ng/ml); URINE BARBITURATES < 200 (200ng/ml); URINE BENZODIAZEPINES < 200 (200ng/ml); URINE CANNABINOIDS (THC) < 50 (50ng/ml); URINE COCAINE < 300 (300ng/ml); URINE METHADONE < 300 (300ng/ml); URINE OPIATES < 300 (300ng/ml)
[2018-10-04 01:52] LABS: URINE PHENCYCLIDINE < 25 (25ng/ml)
--- NOTE | 2018-10-04 02:55 | NUR ---
A 68, admitted to , under the services of CATY Laurent DO with a diagnosis of UIT. Chief complaint is UIT. Patient arrived via stretcher from ER. Monitor applied. Initial assessment completed. Vital signs taken and recorded. CATY LAURENT DO notified of admission to the unit. Orders received. See assessment for past medical history, medications and allergies. Patient and/or family oriented to unit. [facility] Clothing/patient valuable form completed. CHANEL TAN
--- NOTE | 2018-10-04 04:00 | NUR ---
DR. PARIKH ON FLOOR TO EXAMINE PATIENT; ORDERS RECEIVED FOR PATIENT TO BE A 1:1. NURSING INSTRUMENT ROOM TECHNICIAN NOTIFIED OF THIS. PATIENT ALSO TRANSFERRED FROM [facility] TO [facility] DUE TO BEING IN ISOLATION FOR ESBL OF THE URINE.
--- NOTE | 2018-10-04 04:24 | NUR ---
CALLED [facility] REGARDING CONSULT.
[2018-10-04] MEDS ORDERED: ASPIR-TRIN325 MG PO (04:41)
[2018-10-04] MEDS ORDERED: FLEET ENEMA EX230 M1 R (04:46)
[2018-10-04] MEDS ORDERED: SENSIPAR30 MG PO (04:47)
[2018-10-04 06:35] LABS: BASO # 0.1 10*3/uL (0.0-0.1); BASO % 0.4 % (0.0-1.0); EOS # 0.1 10*3/uL (0.0-0.4); EOS % 0.9 % (1.0-4.0); LYMPH # 1.2 10*3/uL (1.3-4.4); LYMPH % 10.2 % (27.0-41.0); MEAN CELL VOLUME 86.5 fl (81.0-99.0); MEAN CORPUSCULAR HGB 25.4 pg (27.0-31.0); MEAN CORPUSCULAR HGB CONC 29.4 g/dl (33.0-37.0); MEAN PLATELET VOLUME 12.2 fl (9.6-12.3); MONO # 1.4 10*3/uL (0.1-1.0); MONO % 11.5 % (3.0-9.0); NEUT # 9.1 10*3/uL (2.3-7.9); NEUT % 76.5 % (47.0-73.0); PLATELET COUNT AUTOMATED 276 10*3/uL (130-400); RED BLOOD COUNT 4.21 10*6/uL (4.10-5.10); RED CELL DISTRI WIDTH 18.3 % (0-14.5); WHITE BLOOD COUNT 11.9 10*3/uL (4.8-10.8)
[2018-10-04 06:36] LABS: HEMATOCRIT 36.4 % (37.0-47.0); HEMOGLOBIN 10.7 g/dl (12.0-16.0)
[2018-10-04 06:38] LABS: BUN 24 mg/dl (7-24); CHLORIDE 125 mmol/L (98-107); CREATININE 0.74 mg/dL (0.55-1.02); POTASSIUM 4.2 mmol/L (3.5-5.1); SODIUM 156 mmol/L (136-145)
[2018-10-04] MEDS ORDERED: DULCOLAX10 M1 R (07:32)
--- NOTE | 2018-10-04 08:00 | NUR ---
PATIENT RESTING QUIETLY IN BED WITH EYES OPENED. FLAT AFFECT. MINMAL VERBAL RESPONSE. ABLE TO ANSWER YES/NO QUESTIONS. 1:1 SITTER AT BEDSIDE PER ORDER. IVF MAINTAINED. WILL CONTINUE TO MONITOR. VSS. CALL LIGHT WITHIN REACH.
--- NOTE | 2018-10-04 12:26 | NUR ---
PT RESTING COMFORTABLY AT THIS TIME. BED ALARM MAINTAINED FOR SAFETY. PT ALERT TO SELF AND CARE ONLY. WILL CONTINUE TO MONITOR. BED LOCKED AND IN LOWEST POSITION.
--- NOTE | 2018-10-04 18:56 | NUR ---
Shift chart check completed.24 HR chart check completed.
--- NOTE | 2018-10-04 22:45 | NUR ---
ON ASSESSMENT PATIENT IS ALERT, ONLY ANSWERS SOME QUESTIONS AND THOSE ONLY WITH A WHISPERED ONE WORD OR TWO. WHEN I ASKED IF SHE WANTED TO HURT HERSELF OR SOMEONE ELSE SHE HESITANTLY SAID "NOT ANYMORE". SKIN WARM AND DRY. BED IN LOW POSITION WITH BED ALARM ACTIVATED. CALL LIGHT IN REACH. SEE ALL APPROPRIATE INTERVENTIONS.
[2018-10-05] VITALS: BP 129/70
--- NOTE | 2018-10-05 00:42 | NUR ---
EYES CLOSED AT PRESENT. NO RESPIRATORY DISTRESS. SKIN WARM AND DRY.
--- NOTE | 2018-10-05 03:58 | NUR ---
UPON ENTERING ROOM PATIENT IS WIDE AWAKE, EYE CONTACT, NON-CONVERSANT.
[2018-10-05 06:37] LABS: BASO # 0.1 10*3/uL (0.0-0.1); BASO % 0.9 % (0.0-1.0); EOS # 0.3 10*3/uL (0.0-0.4); EOS % 3.2 % (1.0-4.0); HEMOGLOBIN 10.6 g/dl (12.0-16.0); LYMPH # 1.2 10*3/uL (1.3-4.4); LYMPH % 14.2 % (27.0-41.0); MEAN CELL VOLUME 86.5 fl (81.0-99.0); MEAN CORPUSCULAR HGB 25.5 pg (27.0-31.0); MEAN CORPUSCULAR HGB CONC 29.4 g/dl (33.0-37.0); MEAN PLATELET VOLUME 12.4 fl (9.6-12.3); MONO # 0.9 10*3/uL (0.1-1.0); MONO % 11.1 % (3.0-9.0); NEUT # 5.7 10*3/uL (2.3-7.9); NEUT % 70.2 % (47.0-73.0); PLATELET COUNT AUTOMATED 298 10*3/uL (130-400); RED BLOOD COUNT 4.16 10*6/uL (4.10-5.10); RED CELL DISTRI WIDTH 18.4 % (0-14.5); WHITE BLOOD COUNT 8.1 10*3/uL (4.8-10.8)
[2018-10-05 07:02] LABS: CHLORIDE 125 mmol/L (98-107); POTASSIUM 3.7 mmol/L (3.5-5.1); SODIUM 159 mmol/L (136-145)
[2018-10-05 07:03] LABS: CREATININE 0.68 mg/dL (0.55-1.02)
[2018-10-05 07:10] LABS: BUN 12 mg/dl (7-24)
[2018-10-05 08:00] VITALS: BP 104/59
--- NOTE | 2018-10-05 08:32 | NUR ---
Patient comes from [facility] where she is intermediate care. She can return when medically stable for discharge.
--- NOTE | 2018-10-05 09:20 | NUR ---
unable to assess patient at this time due to being off floor for mri
--- NOTE | 2018-10-05 09:55 | NUR ---
PAPO FROM WOUND CARE IN COCCYX WOUND ASSESSED AND DRESSING CHANGED.
--- NOTE | 2018-10-05 09:58 | NUR ---
ORLY BABCOCK [id number] Please refer to the physician's history and physical for past medical history, comorbid conditions, and allergies. Diagnosis: UTI,METABOLIC ENCEPHALOPATHY, SEVERE SEPSIS Ata Score: 11,HIGH RISK WOUND DESCRIPTIONS: Location of the wound: coccyx Type of wound: stage 4 Thickness: Full Size: 5.5cm x 4.0cm x 0.8cm Tunneling: none Underminin o'clock- 1 o'clock 0.2cm Sinus Tract: none Presence of Exudate: Purulent Amount: Moderate Color: Yellow, red Odor: Foul Periwound Skin Appearance: Macerated Wound edges: epibole Pain (associated with wound): none at time of assessment How does patient state this happened? pt unable to state how this happened Intact scab noted to left hand. Right hand has intact scab noted. No drainage noted at time of assessment. Surface the patient is resting on: Position Pro SKIN PREVENTION RECOMMENDATION: 1. Pressure redistribution support surface as appropriate 2. Elevate heels 3. Remove boots/TEDS every shift and reapply 4. Head of bed 30 degrees as tolerated 5. Assess nutrition and hydration 6. Manage moisture 7. Avoid the use of containment devices while in bed 8. Use absorptive products on surfaces limit layers of linens on bed 9. Turn and reposition every 1-2 hours in bed and every 1 hour in chair as tolerated 10. Weight shifts every 15 minutes while up in chair 11. Offloading with pillows or device to keep heels elevated off bed 12. Monitor skin at least every shift 13. Inspect under medical devices twice a day WOUND TREATMENT RECOMMENDATIONS: Wheelchair cushion when oob. Stage 4 guideline: Cleanse coccyx with nss and apply sureprep around the wound therahoney to wound bed and lightly pack with maxorb and cover with dsd. Consult Dr. Waters for possible debridement of coccyx wound. Heel raiser pro boots while in bed.
--- NOTE | 2018-10-05 11:24 | NUR ---
Dr. Harrison notified of wound care recommendations.
[2018-10-05 12:00] VITALS: BP 131/74
--- NOTE | 2018-10-05 13:17 | NUR ---
PT WAS TO HAVE DEBRIDEMENT OF SACRAL WOUND BUT WAS UNABLE TO CONTACT NEXT OF KIN FOR PERMISSION.
[2018-10-05 16:00] VITALS: BP 125/70
[2018-10-05 20:00] VITALS: BP 129/81
[2018-10-06] VITALS: BP 128/71
--- NOTE | 2018-10-06 04:01 | NUR ---
Recommend follow up for wound care in outpatient setting patient being discharge to another facility at this time.
[2018-10-06 06:34] LABS: BASO # 0.1 10*3/uL (0.0-0.1); BASO % 0.8 % (0.0-1.0); EOS # 0.2 10*3/uL (0.0-0.4); EOS % 1.8 % (1.0-4.0); HEMATOCRIT 37.8 % (37.0-47.0); HEMOGLOBIN 11.1 g/dl (12.0-16.0); LYMPH # 1.4 10*3/uL (1.3-4.4); LYMPH % 16.4 % (27.0-41.0); MEAN CELL VOLUME 84.8 fl (81.0-99.0); MEAN CORPUSCULAR HGB 24.9 pg (27.0-31.0); MEAN CORPUSCULAR HGB CONC 29.4 g/dl (33.0-37.0); MONO % 11.9 % (3.0-9.0); NEUT # 5.7 10*3/uL (2.3-7.9); NEUT % 68.7 % (47.0-73.0); PLATELET COUNT AUTOMATED 296 10*3/uL (130-400); RED BLOOD COUNT 4.46 10*6/uL (4.10-5.10); RED CELL DISTRI WIDTH 18.3 % (0-14.5); WHITE BLOOD COUNT 8.3 10*3/uL (4.8-10.8)
[2018-10-06 06:40] LABS: BUN 11 mg/dl (7-24); CHLORIDE 118 mmol/L (98-107); CREATININE 0.74 mg/dL (0.55-1.02); POTASSIUM 3.5 mmol/L (3.5-5.1); SODIUM 152 mmol/L (136-145)
--- NOTE | 2018-10-06 07:45 | NUR ---
IV RIGHT ARM INFILTRATED, IV REMOVED. NEW IV STARTED LEFT FOREARM #22, GOOD BLOOD RETURN, TOLERATED FAIR
[2018-10-06 08:00] VITALS: BP 135/79
--- NOTE | 2018-10-06 08:00 | NUR ---
ASSESSMENT COMPELTE. RIGHT ARM WITH EDEMA FROM IV INFILTRATE. LEFT ARM IV FLUIDS INFUSING WITHOUT DIFFICULTY- ARM WRAPPED WITH KERLEX TO HELP PREVENT PATIENT FROM PULING IV OUT PT WILL NOT ANSWER QUESTIONS ABOUT SUICIDAL IDEATION OR HOMICIDIAL IDEATION. PT DISORIENTED, UNABLE OR UNWILLING TO ANSWER ORIENTAION QUESTIONS. DRESSING TO BUTTOCKS INTACT, RITTER INTACT AND DRAINING - SECURED TO LEG. BED ALARM ON, PT HAS MADE MULTIPLE ATTEMPTS TO GET OUT OF BED
[2018-10-06 12:00] VITALS: BP 132/68
--- NOTE | 2018-10-06 15:42 | NUR ---
BED ALARM ON, PT SITTING STRIAGHT UP IN BED, WILL NOT FOLLOW ANY DIRECTION TO LYE BACK DOWN. BED RAILS UP APPROPRIATLEY. IV FLUIDS INFUSING INTO LEFT ARM IV, WITHOUT DIFFICULTY. PT REMAINS NPO FOR POSSIBLE DEBRIDMENT OF COXXYX WOUND
[2018-10-06 16:00] VITALS: BP 134/78
--- NOTE | 2018-10-06 16:44 | NUR ---
NOTIFIED ID ANSWERING SERVICE OF NEW CONSULT. PER ANSWERING SERVICE, CONSULT WILL GO TO DR. JENNINGS THIS EVENING. AWAIT CALL BACK
--- NOTE | 2018-10-06 16:45 | NUR ---
SPOKE WITH DR. JENNINGS, MADE AWARE THAT PATIENT IS ON MERREM, NO NEW ORDERS AT THIS TIME
--- NOTE | 2018-10-06 19:37 | NUR ---
PT RESTING IN CHAIR. NO ACUTE DISTRESS NOTED AT THIS TIME. ASSESSMENT COMPLETE. RESPS EASY AND REG. RITTER DRAINING YELLOW URINE WITHOUT DIFFICULTY VIA GRAVITY. CHAIR ALARM INTACT. WILL CONTINUE TO MONITOR.
[2018-10-06 20:00] VITALS: BP 145/74
--- NOTE | 2018-10-06 21:30 | NUR ---
THIS RN TRIED SEVERAL CALLS TO POA FOR ANESTHESIA. NO ANSWER AT THIS TIME. WILL TRY IN THE AM.
[2018-10-07] VITALS (9 sets, daily range): BP systolic 85–128; BP diastolic 48–86
--- NOTE | 2018-10-07 06:12 | NUR ---
THIS RN ATTEMPTED TO REACH POA FOR ANESTHESIA CONSENT WITH ANSWER.
[2018-10-07 07:09] LABS: BUN 10 mg/dl (7-24); CHLORIDE 115 mmol/L (98-107); POTASSIUM 3.3 mmol/L (3.5-5.1); SODIUM 150 mmol/L (136-145)
[2018-10-07 07:12] LABS: CREATININE 0.71 mg/dL (0.55-1.02)
--- NOTE | 2018-10-07 09:07 | NUR ---
Received message from Dr Ervin regarding decision maker for this patient and a phone number. Patients Aba Israel is also a patient at [facility]. He is competent and makes decisions for Abbie. He can be reached by calling the [facility] facility and ask to speak with patient Aba Israel. They also have a Daughter, Vivian Vásquez her phone number is [phone]. Phone number for [facility] is [phone]
--- NOTE | 2018-10-07 09:33 | NUR ---
Nursing screen received and chart review completed. Patient is termite control technician care at [facility] and was admitted with UTI and coccyx wound. Patient is a Jonathan lift for transfers and is assisted with all ADLS. At this time, no further OT indicated. Thank you. Sonia Rodarte OTR/L
--- NOTE | 2018-10-07 14:30 | NUR ---
SPOKE WITH DR. CERVANTES. STATED HE TALKED TO PATIENTS AND THAT HE IS AGREEABLE FOR PATIENT TO GET PEG TUBE PLACED. ORDERED TO CALL DR. MOODY AND MAKE HIM AWARE
--- NOTE | 2018-10-07 14:50 | NUR ---
DR. MOODY CALLED AT THIS TIME. STATED HE CAN PLACE PEG TUBE TOMORROW. STATED HE WILL CALL ME BACK WITH A TIME.
--- NOTE | 2018-10-07 15:05 | NUR ---
DR. MOODY STATED HE WILL PLACE PEG TUBE TOMORROW AROUND 1100. DR. CERVANTES AWARE.
--- NOTE | 2018-10-07 23:30 | NUR ---
ASSUME CARE OF PATIENT. RESTING QUIETLY IN BED. NO VOICED COMPLAINTS AT THIS TIME. RESPIRATIONS EASY/REG ON RA. BED ALARM ON, CALL LIGHT IN REACH
[2018-10-08] VITALS (7 sets, daily range): BP systolic 80–131; BP diastolic 48–72
--- NOTE | 2018-10-08 03:11 | NUR ---
PATIENT SLEEPING. RESPIRATIONS EASY/REG ON RA. CALL LIGHT IN REACH. WILL MONITOR.
[2018-10-08 07:06] LABS: BUN 9 mg/dl (7-24); CHLORIDE 115 mmol/L (98-107); CREATININE 0.68 mg/dL (0.55-1.02); POTASSIUM 3.7 mmol/L (3.5-5.1); SODIUM 149 mmol/L (136-145)
--- NOTE | 2018-10-08 13:33 | NUR ---
TUBE FEEDINGS STARTED
--- NOTE | 2018-10-08 14:49 | NUR ---
Patient information regarding new peg tube/updated clinicals faxed to [facility] for [facility] notification for patient to return when medically stable.
--- NOTE | 2018-10-08 16:24 | NUR ---
PERCOCET FOR ABD PAIN FROM TODAYS PEG HAS BEEN EFFECTIVE
--- NOTE | 2018-10-08 17:01 | NUR ---
I SPOKE WITH ID, THEY DID SEE THE PT YESTERDAY AND RECOMMEND NO TREATMENT FOR THE ESBL, DR CERVANTES UPDATED
--- NOTE | 2018-10-08 20:43 | NUR ---
AWAKE FOR SHIFT ASSESSMENT. PATIENT SPEECH SOFT SPOKEN, MINIMAL VERBAL RESPONSES. DENIES PAIN AT THIS TIME. TUBE FEEDING MAINTAINED. WHEN ASKED PATIENT IF SHE IS COMFORTABLE SHE STATES "ITS FINE" NO DISTRESS NOTED. RESPIRATIONS EASY/REG. CALL LIGHT IN REACH.
--- NOTE | 2018-10-08 21:44 | NUR ---
PATIENT PICKING AT ARMS AND ABDOMEN. MEDICATED WITH PRN NORCO VIA PEG TUBE ORDERED FOR S/S OF DISCOMFORT. PATIENT TOLERATED WELL. RESTING COMFORTABLY IN BED. CALL LIGHT IN REACH
--- NOTE | 2018-10-08 22:37 | NUR ---
PATIENT RESTING COMFORTABLY IN BED. NO S/S OF DISTRESS NOTED. TUBE FEEDING MAINTAINED. CALL LIGHT IN REACH
[2018-10-09] VITALS: BP 113/57
--- NOTE | 2018-10-09 00:15 | NUR ---
200 CC FLUSH DONE AT THIS TIME
--- NOTE | 2018-10-09 02:36 | NUR ---
PATIENT SLEEPING. NO S/S OF DISTRESS NOTED. RESPIRATIONS EASY/REG ON RA. TUBE FEEDINGS MAINTAINED PER ORDER. HOB ELEVATED AT LEAST 30 DEGREES. CALL LIGHT IN REACH.
--- NOTE | 2018-10-09 06:00 | NUR ---
200 CC PEG FLUSH DONE AT THIS TIME
[2018-10-09 07:26] LABS: BUN 12 mg/dl (7-24); CHLORIDE 113 mmol/L (98-107); POTASSIUM 3.8 mmol/L (3.5-5.1); SODIUM 143 mmol/L (136-145)
[2018-10-09 07:28] LABS: CREATININE 0.73 mg/dL (0.55-1.02)
[2018-10-09 08:00] VITALS: BP 99/57
--- NOTE | 2018-10-09 11:08 | NUR ---
Per Enteral Assessment completed 10/09/18, recommend change in enteral feeding to better meet pt needs. Needs assessed at 1555 kcal/64.4 g protein/1555 ml free water. Recommend Jevity 1.2 @ max 55 ml/hr, flush 200 ml qs. Titrate by increasing 5 to 10 ml per hour as tolerated, checking residuals. Physician is also requesting an alternative bolus feeding for LTC placement. Bolus recommnedation of Jevity 1.2 8 oz container. Each container to provide 285 kcal, 13.2 g protein, 191 ml free water. Five containers to provide 1425 kcal, 66 g protein, 955 free water, flush 125 after each bolus. Six containers to provide 1710 kcal, 79.2 g protein, 1146 free water, flush 75 ml after each bolus. Pts needs currently assessed at 1555 kcal, 64.4 g protein, 1555 ml free water.
[2018-10-09 12:00] VITALS: BP 121/56
--- NOTE | 2018-10-09 13:49 | NUR ---
Patient is oysterman care at [facility]; patient updated clinicals including new peg tube & dietary supplement information has been faxed to facility, patient is ok to go when medically stable for discharge.
[2018-10-09 16:00] VITALS: BP 130/65
[2018-10-09 20:00] VITALS: BP 109/76
--- NOTE | 2018-10-09 21:15 | NUR ---
PATIENT IS RESTING IN BED WITH EASY AND REGULAR RESPERS ON ROOM AIR. ASSESSMENT IS COMPLETE WITH NO S/S OF DISTRESS NOTED AT THIS TIME. PEG TUBE PLACEMENT CHECKED WITH AIR BOLUS AND JEVITY 1.2 INFUSING AT 20ML/HR. SEE SHIFT ASSESSMENT.
[2018-10-10] VITALS: BP 102/50
--- NOTE | 2018-10-10 | NUR ---
50ML FLUSH PROVIDED TO PEG TUBE. PATIENT TOLERATED WELL, CALL LIGHT IS WITHIN REACH.
--- NOTE | 2018-10-10 02:00 | NUR ---
RESTING IN BED WITH EASY AND REGULAR RESPERS ON ROOM AIR. CALL LIGHT IS WITHIN REACH.
[2018-10-10 04:00] VITALS: BP 95/52
--- NOTE | 2018-10-10 05:39 | NUR ---
PATIENT BATHED, DRESSING TO COCCYX CHANGED PER ORDER, AND DRAIN SPONGE APPLIED TO PEG TUBE SITE. PATIENT TOLERATED WELL, BED IS LOW, LOCKED, CALL LIGHT IS WITHIN REACH, ALARMED, AND HOB LOCKED IN 30+ DEGREE.
--- NOTE | 2018-10-10 06:15 | NUR ---
0600 MEDICATION PROVIDED AND PEG TUBE FLUSHED WITH 50ML OF WATER. PATIENT TOLERATED WELL, CALL LIGHT IS WITHIN REACH.
[2018-10-10 08:00] VITALS: BP 119/56
[2018-10-10 12:00] VITALS: BP 120/67
[2018-10-10 16:00] VITALS: BP 106/60
[2018-10-10 20:00] VITALS: BP 98/58
[2018-10-11] VITALS: BP 116/70
[2018-10-11 07:16] LABS: BASO % 0.2 % (0.0-1.0); EOS # 0.1 10*3/uL (0.0-0.4); EOS % 1.6 % (1.0-4.0); HEMATOCRIT 37.8 % (37.0-47.0); HEMOGLOBIN 11.6 g/dl (12.0-16.0); LYMPH # 0.9 10*3/uL (1.3-4.4); LYMPH % 10.7 % (27.0-41.0); MEAN CELL VOLUME 84.6 fl (81.0-99.0); MEAN CORPUSCULAR HGB CONC 30.7 g/dl (33.0-37.0); MEAN PLATELET VOLUME 12.7 fl (9.6-12.3); MONO # 0.9 10*3/uL (0.1-1.0); MONO % 9.9 % (3.0-9.0); NEUT # 6.8 10*3/uL (2.3-7.9); NEUT % 77.3 % (47.0-73.0); PLATELET COUNT AUTOMATED 250 10*3/uL (130-400); RED BLOOD COUNT 4.47 10*6/uL (4.10-5.10); RED CELL DISTRI WIDTH 18.5 % (0-14.5); WHITE BLOOD COUNT 8.8 10*3/uL (4.8-10.8)
[2018-10-11 07:21] LABS: BUN 18 mg/dl (7-24); CHLORIDE 114 mmol/L (98-107); CREATININE 0.77 mg/dL (0.55-1.02); POTASSIUM 3.8 mmol/L (3.5-5.1); SODIUM 149 mmol/L (136-145)
[2018-10-11 08:00] VITALS: BP 115/61
--- NOTE | 2018-10-11 11:35 | NUR ---
DRESSING CHANGED TO COCCYX AT THIS TIME IT WAS SOILED.
[2018-10-11 12:00] VITALS: BP 103/60
--- NOTE | 2018-10-11 14:55 | NUR ---
PHYSICAL THERAPY Nursing screen received. Patient not appropriate for PT. PAtient is termite control service representative care and jazmin lift. PT not appropriate. Recommend daily ROM with nursing care. Thank you. Racheal Gannon,PT
[2018-10-11 16:00] VITALS: BP 104/61
[2018-10-11 20:00] VITALS: BP 105/66
--- NOTE | 2018-10-11 20:20 | NUR ---
1930 REMAINS UP IN [place]ENE CHAIR AT BEDSIDE. BODY ALARM INTACT. PT REMAINS CONFUSED. TF INTACT VIA PEG TUBE. ABD BINDER INTACT. PT HAS NO IV SITE. PULLED OUT EARLIER. NO DISTRESS NOTED. MUCOUS MEMBRANES DRY. ORAL CARE DONE.
--- NOTE | 2018-10-11 22:13 | NUR ---
2200 BACK TO BED WITH 2 ASSISTS. INCONTINENT OF SMALL AMOUNT STOOL. ADULT DIAPER CHANGED. BODY ALARM AND BED ALARM INTACT. TF CONT. NO DISTRESS NOTED. SIDE RAILS UP X'S 2. RITTER PATENT AND DRAINING CLEAR YELOOW URINE
--- NOTE | 2018-10-11 23:00 | NUR ---
ASSUMED CARE FOR THIS PATIENT AT THIS TIME. PATIENT SLEEPING AT THIS TIME. BED LOCKED IN LOWEST POSITION. CALL [place] WITHIN REACH. WILL MONITOR.
[2018-10-12] VITALS: BP 113/69
--- NOTE | 2018-10-12 00:54 | NUR ---
24 HR chart check completed.
--- NOTE | 2018-10-12 05:48 | NUR ---
200CC H2O WATER FLUSH GIVEN AT THIS TIME. FLUSHES WITH NO PROBLEM.
[2018-10-12 08:00] VITALS: BP 107/71
--- NOTE | 2018-10-12 09:50 | NUR ---
PT MEDICATED WITH MILK OF MAG AT THIS TIME FOR NO BM SINCE ADMISSION. WILL MONITOR.
--- NOTE | 2018-10-12 11:00 | NUR ---
MILK OF MAG SUCCESSFUL - PATIENT HAD LARGE LIQUID BM AT THIS TIME.
[2018-10-12 12:00] VITALS: BP 114/74
--- NOTE | 2018-10-12 13:02 | NUR ---
SADIQORLY K [id number] Please refer to the physician's history and physical for past medical history, comorbid conditions, and allergies. Diagnosis: UTI,METABOLIC ENCEPHALOPATHY, SEVERE SEPSIS Ata Score: 11,HIGH RISK WOUND DESCRIPTIONS: Location of the wound: coccyx Type of wound: stage 4 Thickness: Full Size: 5.5cm x 3.5cm x 0.5cm Tunneling: none Underminin o'clock- 1 o'clock 0.3cm Sinus Tract: none Presence of Exudate: Purulent Amount: Moderate Color: Yellow, red Odor: Foul Periwound Skin Appearance: Erythema Wound edges: epibole Pain (associated with wound): none at time of assessment How does patient state this happened? pt unable to state how this happened Intact scab noted to left hand. Right hand has intact scab noted. Intact scabs noted to left elbnow. No drainage noted at time of assessment. Surface the patient is resting on: Position Pro SKIN PREVENTION RECOMMENDATION: 1. Pressure redistribution support surface as appropriate 2. Elevate heels 3. Remove boots/TEDS every shift and reapply 4. Head of bed 30 degrees as tolerated 5. Assess nutrition and hydration 6. Manage moisture 7. Avoid the use of containment devices while in bed 8. Use absorptive products on surfaces limit layers of linens on bed 9. Turn and reposition every 1-2 hours in bed and every 1 hour in chair as tolerated 10. Weight shifts every 15 minutes while up in chair 11. Offloading with pillows or device to keep heels elevated off bed 12. Monitor skin at least every shift 13. Inspect under medical devices twice a day WOUND TREATMENT RECOMMENDATIONS: Continue current orders per Dr. Waters.
--- NOTE | 2018-10-12 15:38 | NUR ---
NOTIFIED PSYCH FLOOR OF PATIENT'S CONTINUING SUICIDAL IDEATIONS. THEY ARE NOTIFYING OF RE-CONSULT.
[2018-10-12 16:00] VITALS: BP 116/71
--- NOTE | 2018-10-12 18:42 | NUR ---
NOTIFIED THAT PATIENT HAS HAD DECREASED URINE OUTPUT TODAY. SHE HAS HAD 150CC OUT OF RITTER. BLADDER SCANNED FOR 150CC IN BLADDER. FLUSHED RITTER AT THIS TIME WELL.
[2018-10-12 20:00] VITALS: BP 130/67
--- NOTE | 2018-10-12 21:23 | NUR ---
PATIENT UP IN CHAIR. BODY ALARM ON. PATIENT PLEASANT AND COOPERATIVE. TOOK PILLS WHOLE WITH SIPS OF WATER. TOLERATED FINE. CALL LIGHT WITHIN REACH. WILL CONTINUE TO MONITOR.
[2018-10-13] VITALS: BP 101/62
--- NOTE | 2018-10-13 06:47 | NUR ---
PATIENT MEDICATED WITH PRN DUCOLAX. PEG TUBE FLUSHED AT THIS TIME WELL.
[2018-10-13 07:04] LABS: BUN 19 mg/dl (7-24); CHLORIDE 112 mmol/L (98-107); CREATININE 0.64 mg/dL (0.55-1.02); POTASSIUM 4.4 mmol/L (3.5-5.1); SODIUM 145 mmol/L (136-145)
[2018-10-13 08:00] VITALS: BP 102/57
[2018-10-13 12:00] VITALS: BP 109/63
--- NOTE | 2018-10-13 13:41 | NUR ---
DRESSING CHANGE ALREADY COMPLETE FOR TODAY AND CAUSES A LOT OF PAIN TO PATIENT. DID NOT TAKE WOUND PHOTO AT THIS TIME DUE TO THIS REASON.
[2018-10-13] MEDS ORDERED: RIVASTIGMINE TAR3 M1 PO (13:48)
[2018-10-13] MEDS ORDERED: ARIPIPRAZOLE2 MG PO (13:48)
--- NOTE | 2018-10-13 14:15 | NUR ---
PATIENT TAKEN TO U FLOOR AT THIS TIME BY WHEELCHAIR. REPORT GIVEN TO RECEIVING NURSE. STONE LEFT INTACT. PAPERWORK GIVEN TO NURSE.
[2018-10-13] MEDS ORDERED: ARTANE5 M1 PO (14:47)
[2019-03-31] MEDS ORDERED: PAIN RELIEVER325 MG PO (10:42)
[2019-03-31] MEDS ORDERED: ASPIRIN CHEWABL81 MG PO (10:43)
[2019-03-31] MEDS ORDERED: DULOXETINE HCL60 MG PO (10:47)
[2019-03-31] MEDS ORDERED: FEOSOL325 MG PO (10:48)
[2019-03-31] MEDS ORDERED: Ipratropium Brom3 ML INH (10:50)
[2019-03-31] MEDS ORDERED: COZAAR50 M1 PO (10:50)
[2019-03-31] MEDS ORDERED: LOXAPINE50 MG PO (10:51)
[2019-03-31] MEDS ORDERED: MULTIVITAMINS1 EAC5 PO (10:52)
[2019-03-31] MEDS ORDERED: NORCO 5-325 TA1 EACH PO (10:53)
[2019-03-31] MEDS ORDERED: VITAMIN B1250 MCG PO (10:55)
[2019-03-31] MEDS ORDERED: ZINC-220220 MG PO (10:57)
[2019-03-31] MEDS ORDERED: VITAMIN C500 M8 PO (10:57)
[2019-03-31] MEDS ORDERED: ZOFRAN4 MG PO (10:58)
== END 2018-10-13 14:33 | disposition home health service (06) | DRG 853 ==
LOC: ED 00:52 → EDHOLD 02:05 → 4E 02:05
PROVIDERS: Internal Medicine; Student in an Organized Health Care Education/Training Program; ADMIT Internal Medicine
DX: A41.9 Sepsis, unspecified organism (principal); L89.154 Pressure ulcer of sacral region, stage 4; G93.41 Metabolic encephalopathy; N17.0 Acute kidney failure with tubular necrosis; N39.0 Urinary tract infection, site not specified; E87.0 Hyperosmolality and hypernatremia; R45.851 Suicidal ideations; F03.91 Unspecified dementia, unspecified severity, with behavioral disturbance; F33.3 Major depressive disorder, recurrent, severe with psychotic symptoms; E46 Unspecified protein-calorie malnutrition; Z68.1 Body mass index [BMI] 19.9 or less, adult; R65.20 Severe sepsis without septic shock; R45.850 Homicidal ideations; F41.9 Anxiety disorder, unspecified; E55.9 Vitamin D deficiency, unspecified; E78.2 Mixed hyperlipidemia; Z16.12 Extended spectrum beta lactamase (ESBL) resistance; N18.3 Chronic kidney disease, stage 3 (moderate); K29.70 Gastritis, unspecified, without bleeding; R62.7 Adult failure to thrive; E21.0 Primary hyperparathyroidism; I25.10 Atherosclerotic heart disease of native coronary artery without angina pectoris; Z86.711 Personal history of pulmonary embolism; Z86.73 Personal history of transient ischemic attack (TIA), and cerebral infarction without residual deficits; Z87.440 Personal history of urinary (tract) infections; Z82.49 Family history of ischemic heart disease and other diseases of the circulatory system; Z82.5 Family history of asthma and other chronic lower respiratory diseases; Z81.8 Family history of other mental and behavioral disorders; Z79.899 Other long term (current) drug therapy; Z79.82 Long term (current) use of aspirin

== ENCOUNTER 2018-10-13 13:26 | Inpatient (IN) | payer MEDICARE ==
[~2018-10-13] VITALS: Wt 43.7 kg
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
--- NOTE | ~2018-10-13 | PR ---
[place], [place] PROGRESS NOTE NAME: ORLY BABCOCK UNIT #: [id number] ROOM: 316 DOCTOR: FRANCOISE ZUNIGA CNP BIRTHDATE: [birth year] DOS: 10/17/2018 CHIEF COMPLAINT: "I am not bad." SUMMARY OF THE VISIT: The patient was interviewed as she sat in the dining room. She engaged in conversation with me; however, she verbalizes minimally. She reports that she slept good and that her appetite is good. She reports that she feels somewhat troubled; however, she is less anxious. Staff reports that the patient has been refusing her meds and spitting them out. The patient did sleep 8 hours last night. MENTAL STATUS EXAMINATION: The patient is alert and oriented. She is pleasant and cooperative with me. No taty or hypomania noted. No delusions or paranoia noted. No auditory or visual hallucinations noted. Her mood was calm. No aggression or agitation noted. Her affect was congruent with mood. PLAN: We will start to give the patient her medications through her PEG tube. We will monitor the patient to make sure that she tolerates her medication without side effects. We will encourage the patient to engage in individual and alvarez milieu activity. We will continue fall and safety precautions. We will plan to return the patient to the least restrictive environment when she is considered psychiatrically stable. Francoise Zuniga CNP CM:PNTRANS [id number] FRANCOISE ZUNIGA CNP 10/18/18 0245 interface
--- NOTE | ~2018-10-13 | WRIGHTHP ---
[place], [place] PATIENT HISTORY AND PHYSICAL EXAM NAME: ORLY BABCOCK [facility] #: [id number] UNIT #: [id number] ROOM: 316 DOCTOR: EBER CROCKETT MD BIRTHDATE: [birth year] DOS: 10/14/2018 INITIAL PSYCHIATRIC EVALUATION CHIEF COMPLAINT: "I have not been feeling well." HISTORY OF PRESENT ILLNESS: This is a 68-year-old white female known to me from multiple psychiatric admissions here to the [facility] Care Unit as well as several stays at various long-term care facilities. The patient had initially presented to the Emergency Room to be evaluated for possible suicidal and homicidal ideation; however, she was found to have a significant UTI and had history of ESBL. She was initially then admitted to the medical floor for further evaluation and treatment. She continued during this period of time to voice significant depression with suicidal thoughts and a plan. Additionally, she at times voiced bizarre or homicidal ideation. The patient does have a lengthy history of bipolar disorder and has been declining both mentally and physically over the last year to 2 years. She is now admitted to the [facility] Unit to rule out further organic factors, to engage in individual and alvarez milieu activity and to stabilize on medication, returning to the least restrictive environment when psychiatrically stable. PAST MEDICAL HISTORY: Remarkable for past history of C. diff, coronary artery disease, chronic kidney disease, GI bleed, hyperlipidemia, anemia, a significant sacral decub, hyperparathyroidism, pulmonary emboli, protein calorie malnutrition, TIAs, seizure disorder, vitamin D deficiency. SOCIAL HISTORY: The patient is a nonsmoker. She does not use illicit drugs, nor does she drink alcohol. ALLERGIES: She lists no known allergies. STRENGTHS: Good verbal skills, supportive family. WEAKNESSES: Chronic severe mental health issues and poor coping skills. MENTAL STATUS: She is alert and oriented with very significant time gaps. Mood does seem to be significantly depressed. Affect is flat and blunted. Her responses tend to be short and simple, at times inappropriate to the questions asked of her. There was no symptom suggestive of hypomania or taty. It was unclear whether or not there were any significant psychotic symptoms. Memory for short term events especially is poor. DIAGNOSES: Bipolar type 1, depressed, rule out schizoaffective disorder, rule out dementia. PLAN: I have started her on Cymbalta 30 mg twice daily as an antidepressant that will also help with pain. Given the severity of her sacral decubitus, this may be a multitasker that will help with depression, anxiety and pain. I have maintained her on Abilify and increased the dose to more effectively augment the effectiveness of the antidepressant. I will also check old records to see if [place], [place] PATIENT HISTORY AND PHYSICAL EXAM NAME: ORLY BABCOCK UNIT #: [id number] ROOM: 316 DOCTOR: EBER CROCKETT MD BIRTHDATE: [birth year] she has ever been on Clozaril, as this may be an alternative at this point to break the psychosis and decrease suicidality. Screening examination show her to have a low vitamin D level of 27.2. Vitamin D has already been started at 2000 International Units daily. Her vitamin B12 level is low normal at 331. I will go ahead and treat with vitamin B12 injection 1000 mcg monthly. I have also started her on zinc 220 mg in the morning to help with wound healing. We will have PT and OT as well as Wound Therapy consulted and evaluate for possible Clozaril therapy. We will engage in individual and alvarez milieu activity, returning to the least restrictive environment when psychiatrically stable. EBER CROCKETT MD CM:HISPHYS:PATIENT HISTORY AND PHYSICAL EXAMINATION [id number] EBER CROCKETT MD 10/14/18 1035 interface
--- NOTE | ~2018-10-13 | PR ---
[place], [place] PROGRESS NOTE NAME: ORLY BABCOCK UNIT #: [id number] ROOM: 316 DOCTOR: EBER CROCKETT MD BIRTHDATE: [birth year] DOS: 10/20/2018 CHIEF COMPLAINT: "I don't need to be here." SUMMARY OF THE VISIT: The patient was interviewed twice, first as she entered into the ongoing court hearing for continued length of stay and then once again after the court hearing was over. During the hearing, the patient did verbalize that she did not feel that she needed to be here; however, the court felt otherwise and did feel that she would benefit from a continued length of stay. The patient did take this news well and did not seem outwardly upset that she was going to be in the hospital any longer. When I talked to her afterwards, there is a great deal of sparsity of thought and it takes her a great deal of time to respond to questions. She continues to appear depressed and does report she is still experiencing some pain. She is not outwardly exhibiting any side effects from the medications themselves. MENTAL STATUS: She is alert and oriented to person, place, not necessarily time. Mood does seem to be still depressed. Affect is still somewhat blunted. She talks in a soft, whisper-like voice. There is no hypomania or taty. I have not elicited much bizarre talk from her and she does seem to be more grounded in her conversation. Short term memory, however, continues to be problematic. PLAN: I will maximize her dose of Cymbalta out to 60 mg twice daily, hoping to combat depression as well as to relieve some pain. I will also increase her Clozaril to 25 mg in the morning and 200 mg at bedtime hoping to clear her thought process and psychosis. We will continue to engage her in individual and alvarez milieu activity, returning to the least restrictive environment when psychiatrically stable. EBER CROCKETT MD CM:PNTRANS [id number] EBER CROCKETT MD 10/20/18 1342 interface
--- NOTE | ~2018-10-13 | PR ---
[place], [place] PROGRESS NOTE NAME: ORLY BABCOCK UNIT #: [id number] ROOM: 316 DOCTOR: EBER CROCKETT MD BIRTHDATE: [birth year] DOS: 10/22/2018 INTERVAL NOTE CHIEF COMPLAINT: "That's right I didn't sleep well." SUMMARY OF THE VISIT: The patient was interviewed in the dining area, she once again engaged in meaningful conversation. She reported to me that she did have difficulty sleeping last night and awoke multiple times. This was confirmed by nursing. Outwardly, she is tolerating the current medication regimen well and I did not see the presence of any drooling, extrapyramidal symptoms or tardive dyskinesia. MENTAL STATUS: She is alert and oriented with some time gaps. Mood does seem to be solidly trending towards euthymia. Affect is much more appropriate. There is no taty or hypomania. There is no gross psychosis. Memory does have gaps. PLAN: I will simplify her Clozaril regimen and increase the nighttime dose. I will discontinue Clozaril 25 mg in the a.m. I will increase her nighttime dose of Clozaril from 200 mg at bedtime to 300 mg at bedtime attempting to impact positively on mood while improving sleep and appetite. EBER CROCKETT MD CM:PNTRANS 1210 [id number] EBER CROCKETT MD 10/22/18 1232 interface
--- NOTE | ~2018-10-13 | PR ---
[place], [place] PROGRESS NOTE NAME: ORLY BABCOCK UNIT #: [id number] ROOM: 316 DOCTOR: EBER CROCKETT MD BIRTHDATE: [birth year] DOS: 10/21/2018 INTERVAL NOTE CHIEF COMPLAINT: "Oh, I am okay, how are you today?" SUMMARY OF THE VISIT: The patient was interviewed as she was sitting in the dining area. She had already completed breakfast and was sitting watching television. She engaged readily in conversation that was to 2-way asking me questions and being very polite. There was no bizarre statements made and overall there does seem to be a steady trend in improvement. She did report to me that she likes cottage cheese and segmented oranges and would welcome the addition of those in between meals to help supplement her diet. She seems to be tolerating the medication adjustments well and despite increasing the Clozaril is exhibiting no sedation or somnolence. MENTAL STATUS: She is alert and oriented with some time gaps. Mood does seem to be trending towards euthymia. Affect is more appropriate. There is no taty or hypomania. There is no gross psychosis noted. Memory for the most part is intact. PLAN: I will maintain her current psychotropic regimen as I have maxed out her dose of Cymbalta to 60 mg twice daily and most recently had the opportunity to increase her Clozaril dose. I will allow her time to adjust to the medications and for the medications themselves to work at stabilizing her mood. We will engage in individual and alvarez milieu activity, returning to the least restrictive environment when psychiatrically stable. EBER CROCKETT MD CM:PNTRANS 1005 [id number] EBER CROCKETT MD 10/21/18 1310 interface
--- NOTE | ~2018-10-13 | PR ---
[place], [place] PROGRESS NOTE NAME: ORLY BABCOCK UNIT #: [id number] ROOM: 316 DOCTOR: EBER CROCKETT MD BIRTHDATE: [birth year] DOS: 10/23/2018 CHIEF COMPLAINT: The patient was extremely somnolent. SUMMARY OF THE VISIT: The patient was attempted to be interviewed as she was resting in bed. Nurses report she had a hard time falling asleep last evening and now must be having some residual director of content and programming somnolence. I tried on multiple occasions calling her name and lightly placing my hand on her shoulder with no avail. There has been a slow and steady improvement, however, in her mental status and she has been much more goal directed in her thinking, much less psychotic and delusional. Her appetite likewise has increased with the combination of the Clozaril and the Marinol. MENTAL STATUS: My mental status today was horribly limited by her level of somnolence. PLAN: At this point in time, I will renew her Marinol, maintain her current psychotropics as improvement is incurring without side effects. Continue to support and monitor, engage in individual and alvarez milieu activity with the ultimate plan to return to the least restrictive environment when psychiatrically stable. EBER CROCKETT MD CM:PNTRANS 0933 1003 EBER CROCKETT MD 10/23/18 1004 interface
--- NOTE | ~2018-10-13 | PR ---
[place], [place] PROGRESS NOTE NAME: [facility]ABCOCK [id number] UNIT #: [id number] ROOM: 316 DOCTOR: EBER CROCKETT MD BIRTHDATE: [birth year] DOS: 10/15/2018 INTERVAL NOTE CHIEF COMPLAINT: "There are worms in the food." SUMMARY OF THE VISIT: The patient was interviewed as she was sitting eating her breakfast. She would take a bite, chewed briefly and spit it out on her plate. She did this repeatedly during the entire time that I interviewed her and at one point, did report that there was worms in her food. Nurses report very bizarre behavior throughout the day, comments regarding killing herself and killing others, being a wizard, needing to come back, incarnated in life. She is compliant with other aspects of her care and is taking her medication at least. Her sleep is normalized, but her appetite remains poor. MENTAL STATUS: She is alert and oriented to self, hospital, but not necessarily time. Responses are short and simple at times, nonsensical. She is grossly psychotic and delusional. Memory for the most part has gaps for short term events, otherwise, she is intact. PLAN: I will discontinue her Abilify and at this point in time, begin her on Clozaril 25 mg twice daily. I do believe the Clozaril will impact positively on her psychosis as well as decreasing her suicidality. It will also improve her appetite. I will increase the Cymbalta from 30 mg twice a day to 30 mg in the morning and 60 mg at night, impacting on her mood as well as attempting to decrease pain. Given the fact that appetite remains problematic, I will start her on Marinol 2.5 mg twice daily. We will utilize [facility] for medication passes to increase her nutritional support. This will not only help her gain weight, but improved her wound healing capabilities. We will engage her in individual and alvarez milieu activity, returning then to the least restrictive environment when psychiatrically stable. EBER CROCKETT MD CM:PNTRANS [phone] EBER CROCKETT MD 10/15/182225 interface
--- NOTE | ~2018-10-13 | DS ---
[place], [place] DISCHARGE SUMMARY [id number] UN[facility] #: [id number] ROOM: 317 DOCTOR: EBER CROCKETT MD BIRTHDATE: [birth year] DOS: 10/26/2018 CHIEF COMPLAINT: "I have not been feeling well." HISTORY OF PRESENT ILLNESS: This is a 68-year-old white female known to me from multiple psychiatric admissions here to the [facility] at [facility] as well as several stays at various long-term care facilities in the area. The patient had initially presented to the Emergency Room at [facility] to be evaluated for possible suicidal and homicidal ideation; however, she was found to have a significant UTI and had a history of ESBL of the urine and was admitted to the medical floor for further evaluation and treatment. While there, she continued to express significant depression with suicidal thoughts and a plan of additionally she at times voice bizarre and homicidal ideation and made very psychotic statements further justifying a stay on the U. She is admitted now to the U to rule out further organic factors to attempt to re-stabilize on medication and to determine the least restrictive environment to which she should return. SUMMARY OF HOSPITAL COURSE: The patient was admitted to the psychiatric unit where she was started on Cymbalta 30 mg twice daily. This antidepressant was started because of her significant pain issues. The patient had a significant sacral decubitus that was requiring ongoing wound care. This pain was very significant per her report and she was not able to rest at any point in time during the day, especially at night. Cymbalta was well tolerated, and during the course of her stay, increased to its maximum dose of 60 mg twice daily with good effect. The patient was initially maintained on her Abilify; however, the patient has had multiple trials on antipsychotics and continues to still be psychotic, will have mood lability on them. For this reason, I eventually discontinued her Abilify in lieu of Clozaril. My hope was that the Clozaril would greatly diminish her suicidal thoughts, decrease or eliminate her psychosis and help her start eating more effectively. The patient had lost a significant amount of weight and was under 100 pounds upon her admission. The patient was started on low dose Clozaril 25 mg in the morning and 50 mg at night and the dose was eventually stabilized out at 200 mg at bedtime with good results. Additionally, because the patient was having such significant poor appetite, Marinol 2.5 mg twice daily was started again with excellent results and the patient consistently gained weight during her stay in the hospital, eventually hitting 100 pounds. Upon admission, it was noted that the patient had a subtherapeutic vitamin D level of 27.2. So, vitamin D 2000 International Units daily was started. Her vitamin B12 level was low normal at 33, so the patient was given a B12 injection of 1000 mcg IM monthly. Additionally, she was started on zinc 220 mg in the morning not only full for wound healing, but in an effort to improve her sense of taste hoping therefore to increase her p.o. intake. The patient had a dramatic improvement and in fact improved to the greatest point that I had ever seen her previously. She became much more alert and oriented. She was able to engage readily in conversation that was pleasant and cooperative. At no time did she exhibit side effects from the medication. The patient had improved sufficiently to return to [facility]. During her stay on the [facility], she was even able to start ambulating once again which was a significant issue for her in the past. [place], [place] DISCHARGE SUMMARY [facility]: [id number] UNIT #: [id number] ROOM: [facility] DOCTOR: EBER CROCKETT MD BIRTHDATE: [birth year] MENTAL STATUS AT DISCHARGE: She is alert and oriented to person, place, very approximate to time now. Mood is strongly trending towards euthymia. Affect is much more appropriate. There is no taty or hypomania. There is no gross psychosis. Short term memory has some gaps, otherwise she is intact. FINAL DIAGNOSES: Bipolar, depression with psychotic features and dementia, not otherwise specified. DISPOSITION: The patient is returning to [facility], where she will continue to receive ongoing treatment. At the time of discharge, there were no acute medical issues and she was psychiatrically stable. All of her prescriptions have been printed and will be sent with her. EBER CROCKETT MD CM:DISCHARG [id number] EBER CROCKETT MD 10/26/18 1005 interface
--- NOTE | ~2018-10-13 | PR ---
[place], [place] PROGRESS NOTE NAME: [facility]ABCOCK [id number] UNIT #: [id number] ROOM: 316 DOCTOR: EBER CROCKETT MD BIRTHDATE: [birth year] DOS: 10/16/2018 CHIEF COMPLAINT: "I feel a little better." SUMMARY OF THE VISIT: The patient was interviewed as she was eating her breakfast. She actually had over half of her breakfast eaten. As compared to the other day where she was chewing her food and spitting it out, she was actually chewing and swallowing it. She had maintained good eye contact with me and was very engaging in conversation, answering most if not all of my questions accurately. There was no bizarreness and is no mood lability. However, nurses have noted that she does remain delusional and has talked out of her head at times. She reports tolerating the medicine well and noticing some mild daytime somnolence as the only side effect. MENTAL STATUS: She is alert and oriented to person, place, not necessarily time. Mood this morning seems to be trending towards euthymia and affect is more appropriate. There is no taty or hypomania. There were no bizarre comments made no auditory or visual hallucinations were readily discerned. Memory does have gaps. PLAN: I will maintain her current dose of Cymbalta. I will continue, however, to raise the dose of the Clozaril, bringing it from 25 mg twice a day to 25 mg in the morning and 100 mg at bedtime in order to decrease the psychosis, stabilize her mood and eliminate suicidality. We will engage in individual and alvarez milieu activity, returning to the least restrictive environment when psychiatrically stable. EBER CROCKETT MD CM:PNTRANS [phone] EBER CROCKETT MD 10/16/18 171 interface
--- NOTE | ~2018-10-13 | PR ---
[place], [place] PROGRESS NOTE NAME: ORLY BABCOCK UNIT #: [id number] ROOM: 316 DOCTOR: EBER WILSON MD BIRTHDATE: [birth year] DOS: 10/19/2018 INTERVAL NOTE CHIEF COMPLAINT: "I think I am feeling better, thank you Dr. Wilson." SUMMARY OF THE VISIT: The patient was interviewed in the dining area. She did engage in more meaningful conversation that she had when first admitted. She voiced no complaints. States that she is sleeping well, eating well and is not tired or sleepy during the day. I did not notice any issues with the medicines, but later a nurse did approach me stating that she has noticed that the patient has been drooling more. This is most likely secondary to hypersalivation from the Clozaril. MENTAL STATUS: She is alert and oriented with time gaps. Mood does seem to be strongly trending towards euthymia. Affect is more appropriate. There is no taty or hypomania noted. There are mild psychotic symptoms, but she is redirectable. She is tolerating the current medicines well other than the mild drooling. PLAN: I will renew her Ativan p.r.n. should she require intervention. I will add Cogentin 0.5 mg twice daily to see if that will help decrease the hypersalivation. We will engage in individual and alvarez milieu activity, returning to the least restrictive environment when psychiatrically stable. EBER WILSON MD CM:PNTRANS [id number] EBER WILSON MD 10/19/18 1226 interface
--- NOTE | ~2018-10-13 | PR ---
[place], [place] PROGRESS NOTE NAME: ORLY BABCOCK UNIT #: [id number] ROOM: 316 DOCTOR: FRANCOISE ZUNIGA CNP BIRTHDATE: [birth year] DOS: 10/18/2018 CHIEF COMPLAINT: "This is a boost." SUMMARY OF VISIT: The patient was interviewed as she sat in the dining room. She engaged readily in conversation with me. She reports that she feels that she is sleeping okay and that her appetite is good. She denies feeling anxious or depressed. Staff reports that the patient has had no behaviors, mood seems to be stable. It was ordered yesterday to start giving her medications through PEG tube because she had been spitting them out. She does have a CBC ordered for 10/21/2018 due to being on the Clozaril. MENTAL STATUS EXAMINATION: The patient was alert and oriented. She was pleasant and cooperative with me. No taty or hypomania. No delusions or paranoia. No psychotic symptoms noted. No auditory or visual hallucinations noted. Her mood was calm. No agitation or irritability. Her affect was congruent with her mood. PLAN: We will continue the patient's medications as prescribed, no changes at this time. Continue to monitor the patient for side effects. We will continue to engage the patient in individual and alvarez milieu activity, continue fall and safety precautions. Plan is to return the patient to the least restrictive environment when she is considered psychiatrically stable. Francoise Zuniga CNP CM:PNTRANS [phone] FRANCOISE ZUNIGA CNP 10/19/18 0925 interface
[~2018-10-13 13:26] MED LIST changes: +ASPIR-TRIN325 MG PO; +FLEET ENEMA EX230 M1 R
[2018-10-13] MEDS ORDERED: ARIPIPRAZOLE2 MG PO (13:48)
[2018-10-13] MEDS ORDERED: RIVASTIGMINE TAR3 M1 PO (13:48)
--- NOTE | 2018-10-13 14:17 | NUR ---
ORLY BABCOCK a 68 year old F admitted via wheel chair from the ADMITTING as a emergency 72 hr. hold admission. Arrived on unit at 1417. ALLERGIES: NKA. Vital signs are: [id number] 92/58. The client signed the following forms with stated understanding: Authorization For The Release of Medical Information, Clothing List, Consent to Voluntary Admission and Hospitalization, Consent and Release Forms/Receipt of Rights, Acknowledgement of Advance Directive Information, Behavioral Health Consent Form, and Informed Consent of Medications. Admitted under the services of Dr. BON CORRAL,[facility]. A search was conducted and hazardous articles were removed. Client was oriented to the unit. JULITA NUNEZ
[2018-10-13 14:40] VITALS: BP 92/58
[2018-10-13] MEDS ORDERED: ARTANE5 M1 PO (14:47)
--- NOTE | 2018-10-13 14:54 | NUR ---
PHYSICAL THERAPY PAtient is halfway care and jazmin lift. PT not appropriate. Recommend daily ROM with nursing care. Thank you for this referral. Racheal Gannon,PT
--- NOTE | 2018-10-13 15:47 | NUR ---
SPOKE WITH AT [phone] RE: CONSULT FOR MEDICAL MANAGEMENT PER PLACE CONSULT UNDER
--- NOTE | 2018-10-13 16:11 | NUR ---
Spoke with Roro from [facility]. Pt. is Assisted care at facility. Requires no precert but does require Letter for readmit from [facility] prior to discharge.
[2018-10-13 20:30] VITALS: BP 115/67
--- NOTE | 2018-10-13 21:48 | NUR ---
ON UNIT TO SEE PATIENT AT THIS TIME. NO NEW ORDERS RECIEVED.
--- NOTE | 2018-10-13 23:40 | NUR ---
PATIENT ALERT WITH CONFUSION. SHORT TERM AND HALFWAY MEMORY DEFICITS NOTED. UNABLE TO REDIRECT PATIENT WITH 1:1 INTERACTION AND PRESENTING REALITY DUE TO PATIENT'S COGNITION. PATIENT WITH NONSENSICAL SPEECH AT TIMES AND TOLD THIS NURSE WHEN COVERING HER UP STATING THAT IT IS MELTING WITHIN. PATIENT WITH NO RESPIRATORY DISTRESS. PATIENT DID NOT VERBALIZE ANY HOMICIDAL OR SUICIDAL IDEATIONS. PATIENT WITH NO HALLUCINATIONS OR DELUSIONS. PATINENT REPOSITIONED IN BED Q 2 HOURS. DRESSING INTACT TO COCCYX. RITTER CATHETER PATENT, AND DRAINING DARK YELLOW, CLOUDY URINE. PATIENT WITH PEG TUBE AND PLACEMENT VERIFIED WITH 30ML AIR BOLUS. PATIENT PEG TUBE PATIENT AND FLUSHED WITH 200ML. PATIENT WITH PEG TUBE DRESSING IN PLACE AND ABDOMINAL BINDER ON. SEE U FLOW SHEET FOR SPECIFIC MONITORING
--- NOTE | 2018-10-14 03:00 | NUR ---
24 HR chart check completed.
--- NOTE | 2018-10-14 06:25 | NUR ---
PATIENT SLEPT 7 HOURS THROUGHOUT SHIFT UNINTERRUPTED. Q 15 MINUTE CHECKS MAINTAINED
[2018-10-14 07:50] LABS: BASO % 0.4 % (0.0-1.0); EOS # 0.1 10*3/uL (0.0-0.4); EOS % 1.5 % (1.0-4.0); HEMATOCRIT 38.5 % (37.0-47.0); HEMOGLOBIN 11.5 g/dl (12.0-16.0); LYMPH # 1.3 10*3/uL (1.3-4.4); LYMPH % 13.8 % (27.0-41.0); MEAN CELL VOLUME 84.2 fl (81.0-99.0); MEAN CORPUSCULAR HGB 25.2 pg (27.0-31.0); MEAN CORPUSCULAR HGB CONC 29.9 g/dl (33.0-37.0); MEAN PLATELET VOLUME 12.8 fl (9.6-12.3); MONO # 1.1 10*3/uL (0.1-1.0); MONO % 11.4 % (3.0-9.0); NEUT # 6.8 10*3/uL (2.3-7.9); NEUT % 72.6 % (47.0-73.0); PLATELET COUNT AUTOMATED 284 10*3/uL (130-400); RED BLOOD COUNT 4.57 10*6/uL (4.10-5.10); RED CELL DISTRI WIDTH 18.4 % (0-14.5); WHITE BLOOD COUNT 9.4 10*3/uL (4.8-10.8)
[2018-10-14 07:51] VITALS: BP 115/76
[2018-10-14 08:03] LABS: ALKALINE PHOSPHATASE 136 U/L (45-117); BUN 16 mg/dl (7-24); CHLORIDE 108 mmol/L (98-107); CHOLESTEROL 176 mg/dL (<200); HDL CHOLESTEROL 29 mg/dl (40-60); LDL CHOLESTEROL 116 mg/dL (9-159); POTASSIUM 4.2 mmol/L (3.5-5.1); SGOT/AST 13 IU/L (3-35); SGPT/ALT 13 U/L (12-78); SODIUM 140 mmol/L (136-145); TOTAL PROTEIN 7.1 gm/dL (6.4-8.2); TRIGLYCERIDES 156 mg/dl (<150); VLDL CHOLESTEROL 31 mg/dL (6-40)
--- NOTE | 2018-10-14 08:15 | NUR ---
Treatment Plan meeting with Dr. Wilson, RN, SW and Medical Staff Manager. Plan for discharge next week. Pt. is [facility] at [facility] and can return at discharge.
[2018-10-14 09:47] LABS: VITAMIN D, 25-HYDROXY 27.2 ng/mL (30-100)
--- NOTE | 2018-10-14 10:30 | NUR ---
Patient up in dining room in [facility] [place] at this time. Unable to view wound due to location. This nurse informed the staff when patient is back in her room and I am able to view the wound to please call me on the wound care cell phone.
--- NOTE | 2018-10-14 11:40 | NUR ---
P-PT VOICING PARANOID DELUSIONS REGARDING HER MEATLOAF AND THAT IT IS CAT AND DOG FOOD MIXED TOGETHER WHICH MAKES IT VEGETARIAN AND GOOD FOR HER. PT SLOW TO PROCESS AND RESPOND AT TIMES DURING 1:1 INTERACTIONS WITH STAFF. LIMITED INTERACTIONS WITH PEERS UNLESS INITIATED. DENIES ANY SI/HI OR HALLUCINATIONS. I-REALITY PRESENTED AND EMOTIONAL SUPPORT PROVIDED. PT REDIRECTED BACK TO THE DESERT ON HER TRAY. R-PT NOT RECEPTIVE TO REALITY PRESENTATION. WILL ATTEMPT AGAIN AT A LATER TIME. PT STARTED CHEWING HER MEATLOAF AGAIN AND THEN SPITTING IT BACK OUT ON HER PLATE. PT UNABLE TO TELL HER WHY SHE WAS DOING THIS. P-ENCOURAGE GROUPS, PRESENT REALITY NEEDED.
--- NOTE | 2018-10-14 11:48 | NUR ---
AM GROUP/EXERCISE/BRAIN GAMES PT WAS PRESENT FOR MORNING GROUP THERAPY AND ATTEMPTED TO PARTICIPATE. WHEN PT WAS CALLED ON TO SAY A LETTER OF THE ALPHABET, PT STATED, "STAR". PT PARTICIPATED IN ASSESSMENT AND WHEN ASKED HOW SHE FELT, PT STATED, "HIGH".
--- NOTE | 2018-10-14 11:50 | NUR ---
SPOKE TO MARCELO CASTRO REGARDING PEG TUBE NUTRITION ORDERS. MARCELO RECOMMENDS ENSURE QID. MADE AWARE AND IN AGREEMENT, STATES OK TO CHANGE DIET ORDER.
--- NOTE | 2018-10-14 11:54 | NUR ---
Mutrtional Support Services Note: Poor po intake. Pt has a history of Peg tube feedings. Ht.5'4 Wt.96# BMI 16.4- pt is underweight. She requires 1556cal daily to help with weight increase. Continue with regular diet po, Ensure po TID with meals and at HS. Encourage inake. Will follow for po intake, pt may need to resume TF if po intake doesn't increase. Parisa Young Rdn Ld
--- NOTE | 2018-10-14 14:10 | NUR ---
SPEECH PATHOLOGY Clinical swallowing evaluation completed as per orders. This was ordered due to spitting out food and poor po intake. Patient has a PEG tube. She is ordered a soft diet and thin liquid. Medical hx is significant for suicidal ideation, dementia, TIA, schizoaffective disorder, severe protein calorie malnutrition. Patient was seen during lunchtime meal. She was alert but confused. Her speech was barely audible at times but what was heard was appropriate for question asked. She did not follow simple commands. Patient's lunch consisted of a variety of food items. She did not initiate self feeding therefore was assisted by clinician. Initially she took very small bites and did not appear to want to eat, when given meatloaf. She was given green beans and pears and ate them without difficulty. She was asked if she did not like the meatloaf and she said "Not really. I used to be a vegetarian." When clinician walked away, patient began to feed herself and displayed no difficulty. Her poor intake appears to be due to food preferences, as she showed no difficulty tolerating the items that she ate. Recommend she remain on present diet with food preferences being honored in order to improve her intake. No follow up therapy is warranted as patient displays safe tolerance of diet. Results and recommendations and food choice recommendations were shared with patient's nurse who verbalized understanding. Refer to report in [facility] for further recommendations. Thank you for this referral. SHELLY LIVINGSTON MSCCC-HEALTH EVALUATOR were shared with patient's nurse
--- NOTE | 2018-10-14 14:15 | NUR ---
Psychosocial assessment completed. Aba next of kin was called after pt gave permission to call and this feature writer and pt called and obtained collateral. Aba stated he comments on TV programs about people who are transgender and said, "I probably got her a little confused because I would get angry and all summer she took PT and learned to walk again and now not walking again. I also was very depressed after my son this summer so I talked about dying and that maybe didn't help. I am not sure why all of these changes."
--- NOTE | 2018-10-14 14:22 | NUR ---
Confirmed no guns and Aba stated "we have never had any guns". "she's supposed to come back to [facility]. [employer] took the apt and we lost a lot of stuff, pictures, clothes etc. because we were both sick and I paid the rent all summer and missed a payment in june so [employer] gave to someone else and we did lose a lot of stuff."
--- NOTE | 2018-10-14 15:42 | NUR ---
PM GROUP/AROMATHERAPY/GUIDED MEDITATION PT DID NOT ATTEND AFTERNOON GROUP THERAPY. PT WAS BEING ASSESSED BY SW AND WAS BROUGHT INTO GROUP LATE. PT WAS ABLE TO RELAX AND EXHIBITED NO SIGNS OF ANXIETY OR VOICED ANY SUICIDAL IDEATIONS. PT WILL CONTINUE TO ATTEND AND PARTICIPATE IN GROUP.
--- NOTE | 2018-10-14 19:56 | NUR ---
DR MCGRAW NOTIFIED THAT PT NEEDS WOUND ORDERS PUT IN
[2018-10-14 20:05] VITALS: BP 122/85
--- NOTE | 2018-10-14 22:50 | NUR ---
24 HR chart check completed.
--- NOTE | 2018-10-15 01:20 | NUR ---
P-ISOLATIVE, DEPRESSED, CONFUSION I-OFFER EMOTIONAL SUPPORT, REORIENT, ACCESS PHYSICAL NEEDS, ADMININSTER MEDICATIONS, MONITOR SLEEP R-VERY DEPRESSED MOOD. ALERT TO PERSON. DENIES SUICIDAL FEELINGS. VERY FLAT AFFECT. SPEECH SOFT & ONLY STATES A FEW WORDS AT AT TIME. NOTED MEMORY DEFICITS. DENIES SENSORY DISTURBANCE BUT PT IS PREOCCUPIED & DISPLAYS A STARING GAZE WITH NO EYE CONTACT. DOES FOLLOW SIMPLE COMMANDS. COMPLIANT TAKING HS MEDICATIONS WHOLE & 1 AT A TIME. P-CONTINUE TO MONITOR & PROVIDE WITH PHYSICAL & EMOTIONAL SUPPORT NEEDED.
--- NOTE | 2018-10-15 05:45 | NUR ---
PT HAS SLEPT PAST 1999 & WOKE UP BRIEFLY EVERY TIME SHE WAS TURNED ON Q 2 HOUR TURNS
[2018-10-15 08:09] VITALS: BP 109/60
--- NOTE | 2018-10-15 08:24 | NUR ---
Nursing screen and Occupational Therapy referral received. Thank you. Sonia Rodarte OTR/l
--- NOTE | 2018-10-15 11:00 | NUR ---
VITAMIN B12 IM INJECTION TO RIGHT DELTOID. PT TOLERATED WELL.
--- NOTE | 2018-10-15 11:19 | NUR ---
SADIQORLY K [id number] Please refer to the physician's history and physical for past medical history, comorbid conditions, and allergies. Diagnosis: BIPOLAR DEPRESSION Ata Score: 15,AT RISK WOUND DESCRIPTIONS: Location of the wound: coccyx Type of wound: stage 4 Thickness: Full Size: 5.3cm x 3.8cm x 0.3cm Tunneling: none Undermining: none Sinus Tract: none Presence of Exudate: Serosanguineous Amount: Moderate Color: Yellow, red Odor: Foul Periwound Skin Appearance: Erythema Wound edges: approximated Pain (associated with wound): none at time of assessment How does patient state this happened? pt unable to state how this happened Intact scab noted to left hand. Right hand has intact scab noted. Intact scabs noted to left elbnow. No drainage noted at time of assessment. Surface the patient is resting on: Proform SKIN PREVENTION RECOMMENDATION: 1. Pressure redistribution support surface as appropriate 2. Elevate heels 3. Remove boots/TEDS every shift and reapply 4. Head of bed 30 degrees as tolerated 5. Assess nutrition and hydration 6. Manage moisture 7. Avoid the use of containment devices while in bed 8. Use absorptive products on surfaces limit layers of linens on bed 9. Turn and reposition every 1-2 hours in bed and every 1 hour in chair as tolerated 10. Weight shifts every 15 minutes while up in chair 11. Offloading with pillows or device to keep heels elevated off bed 12. Monitor skin at least every shift 13. Inspect under medical devices twice a day WOUND TREATMENT RECOMMENDATIONS: Wheelchair cushion when oob. Stage 4 guidelines: Cleanse coccyx with nss and apply sureprep around the wound maxorb II to wound bed and cover with optifoam sacral gentle daily and prn for soiling.
--- NOTE | 2018-10-15 11:23 | NUR ---
Recommend follow up for wound care in outpatient setting patient being discharge to another facility at this time.
--- NOTE | 2018-10-15 11:54 | NUR ---
AM GROUP/EXERCISE/CURRENT EVENTS PT ATTENDED AND PARTICIPATED IN ALL GROUP ACTIVITIES TO THE BEST OF HER ABILITY. PT EXPRESSED NO SUICIDAL IDEATIONS NOR EXHIBITED ANY SIGNS OF ANXIETY DURING GROUP.
--- NOTE | 2018-10-15 12:17 | NUR ---
PT IS ISOLATIVE. WITHDRAWN TO SELF. PT IS PLEASANT, COOPERATIVE WITH ASSESSMENT. DENIES SI, INTENT, OR PLAN. PT DOES STATE "I FEEL CRAPPY TODAY. I FEEL THE SAME I DID YESTERDAY" PT GIVE 1:1 FOR EMOTIONAL SUPPORT. PT ENCOURAGED TO VERBALIZE FEELINGS, WANTS, AND NEEDS. PT SMILED, STATED SHE DID NOT GET MUCH SLEEP LAST NIGHT. STATED SHE IS STILL PRETTY TIRED. STAFF INSTRUCTED TO ASSIST PT TO LAY DOWN IN BED AFTER LUNCH. CONTINUE TO ENCOURAGE PT TO VERBALIZE FEELINGS, WANTS, AND NEEDS. ENCOURAGE CONTINUED MEDICATION COMPLIANCE. PROVIDE EMOTIONAL SUPPORT NEEDED. ENCOURAGE PT TO PARTICIPATE IN GROUP THERAPY/ACTIVITY FOR SOCIALIZATION AND SUPPORT.
--- NOTE | 2018-10-15 13:20 | NUR ---
PT LAYING IN BED. HOB ELEVATED 30 DEGREES. PEG TUBE AUSCULTATED FOR PLACEMENT. RESIDUAL CHECKED, NONE AT THIS TIME. PEG TUBE FLUSHED WITH 250CC OF WATER AT THIS TIME. FLUSHED WITHOUT DIFFICULTY. PT TOLERATED WELL.
--- NOTE | 2018-10-15 15:38 | NUR ---
Patient in bed and lethargic. OTR will attempt evaluation at a later date. Sonia Rodarte OTR/l
--- NOTE | 2018-10-15 15:46 | NUR ---
NO PM GROUP THERAPY DUE TO 1:1 SESSIONS WITH PEERS
--- NOTE | 2018-10-15 18:27 | NUR ---
Shift chart check completed.
--- NOTE | 2018-10-15 18:46 | NUR ---
PT LAYING IN BED. HEAD OF BED ELEVATED 30 DEGREES. PEG TUBE AUSCULTATED FOR PLACEMENT. RESIDUAL CHECKED, ZERO AT THIS TIME. PEG TUBE FLUSHED WITH 250CC OF WATER AT THIS TIME WITHOUT DIFFICULTY. PT TOLERATED WELL.
[2018-10-15 20:00] VITALS: BP 102/59
--- NOTE | 2018-10-15 21:57 | NUR ---
24 HR chart check completed.
--- NOTE | 2018-10-15 23:04 | NUR ---
P-DEPRESSED, CONFUSED I-1:1 PROVIDED FOR SUPPORT & VENTILATION OF FEELINGS. ASSESS PHYSICAL NEEDS, REORIENT, ADMINISTER MEDICATIONS, MONITOR SLEEP R-PT WAS SITTING IN A ROSAURA CHAIR AT THE BEGINNING OF THE SHIFT. CONTINUES TO DISPLAY A DEPRESSED MOOD WITH A BRIGHTER AFFECT COMPARED TO NIGHT BEFORE. ALERT TO PERSON, PLACE & SITUATION. MAINTAINS GOOD EYE CONTACT & IS TALKING MORE TO STAFF. DENIES SUICIDAL FEELINGS. STATED THAT SHE IS AFRAID OF EVERYTHING. COMPLIANT TAKING HS MEDICATIONS WHOLE & ONE AT A TIME. ATE HS SNACK, 2 APPLESAUCES, 1 COTTAGE CHEESE, 2 PENNIE CRACKER & A PEANUT BUTTER & DRANK 2 STRAWBERRY ENSURES. WHEN ASKED HOW SHE WAS FEELING SHE STATED "IMPORVED MOOD, FOOD & ATTITUDE". P-CONTINUE TO MONITOR & PROVIDE WITH PHYSICAL ASSISTANCE & EMOTIONAL SUPPORT NEEDED
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
[2018-10-16 07:36] VITALS: BP 108/63
--- NOTE | 2018-10-16 08:30 | NUR ---
Treatment Plan meeting with Dr. Wilson, RN, AT, and Maintenance Equipment Operator. Plan for discharge next week. Pt. to return to [facility].
--- NOTE | 2018-10-16 10:52 | NUR ---
Updates faxed to to [facility] Attn: Roro. Advised Roro of plans to discharge Next week. Roro is awaiting [facility] letter.
--- NOTE | 2018-10-16 11:52 | NUR ---
AM GROUP/CREATIVE OUTLETS PT ATTENDED AND PARTICIPATED IN GROUP TO THE BEST OF HER ABILITY. PT SEEMED A LITTLE CONFUSED BUT OTHERWISE WAS ON TASK. PT EXHIBITED NO SIGNS OF ANXIETY NOR EXPRESSED NO SUCIDIAL IDEATIONS.
--- NOTE | 2018-10-16 12:30 | NUR ---
PT LAYING IN BED, HOB ELEVATED 30DEGREES. PEG TUBE AUSCULTATED FOR PLACEMENT, RESIDUAL CHECKED, NONE AT THIS TIME. PEG TUBE FLUSHED WITH 250CC WATER, FLUSHED WITHOUT DIFFICULTY. TOLERATED WELL.
--- NOTE | 2018-10-16 15:40 | NUR ---
PM GROUP/RELAXATION PT DID NOT ATTEND AFTERNOON GROUP THERAPY. PT WAS IN BED RESTING.
--- NOTE | 2018-10-16 17:42 | NUR ---
PT SMILING, PLEASANT, COOPERATIVE. PT CONTINUES TO BE DISORIENTED TO PLACE, TIME, AND SITUATION. REORIENTED NEEDED. WILL ENCOURAGE PT TO PARTICIPATE IN GROUP THERAPY FOR SOCIALIZATION AND SUPPORT.
--- NOTE | 2018-10-16 17:52 | NUR ---
PEG TUBE AUSCULTATED FOR PLACEMENT. RESIDUAL CHECKED, NONE AT THIS TIME. PEG TUBE FLUSHED WITH 250CC OF WATER AT THIS TIME. FLUSHED WITHOUT DIFFICULTY. PT TOLERATED WELL.
--- NOTE | 2018-10-16 18:00 | NUR ---
Pt was served with her court paperwork and reviewed the rights of an involuntary detained person and provided copy of the return and notice of hearing. Pt had no questions at this time although did not seem to fully understand. Discussed with team concerns and lack of PT due to pts condition and requested pt been evaluated with PT and pt was able to engage in some activities that could improve range of motion etc. Pt was reminded to enage in these stretches and movements. Pt was provided confidence boosters and did not endorse SI and ate a little better and was provided positive reinforcment.
[2018-10-16 19:43] VITALS: BP 112/65
--- NOTE | 2018-10-16 22:00 | NUR ---
P-CONFUSION AND DEPRESSION. PATIENT WITH SHORT TERM AND FPC MEMORY DEFICITS. PATIENT WITH NO HALLUCINATIONS OR DELUSIONS. PATIENT WITH NO SUICIDAL OR HOMICIDAL IDEATIONS. PATIENT GUARDED. I-REDIRECTION WITH 1:1 INTERACTION AND PRESENT REALITY ORIENTATION. EDUCATE AND ENCOURAGE MEDICATION COMPLIANCE. DISCUSS TRIGGERS FOR DEPRESS MOOD AND COPING SKILLS TO DEPRESSED EPISODES R-UNABLE TO REDIRECT PATIENT WITH 1:1 INTERACTION AND PRESENTING REALITY AT THIS TIME DUE TO PATIENT COGNITION. PATIENT DID NOT VOICE ANY TRIGGERS OR COPING SKILLS FOR DEPRESSED MOOD OR EPISODES. PATIENT WITH RITTER. RITTER PATENT AND DRAINING DARK YELLOW URINE. PATIENT WITH PEG TUBE. PEG TUBE PATENT AND PLACEMENT VERIFIED WITH 30ML AIR BOLUS. RESIDUAL OF 0ML AT THIS TIME. PATIENT TURNED AND REPOSITIONED THROUGHOUT SHIFT. PATIENT MEDICATION COMPLIANT P-CONTINUE MEDICATION COMPLAINCE, CONTINUE TO PRESENT REALITY ORIENTATION, ENCOURAGE GROUP THERAPY WHILE AWAKE P-CO
--- NOTE | 2018-10-17 03:03 | NUR ---
24 HR chart check completed.
--- NOTE | 2018-10-17 06:10 | NUR ---
PATIENT SLEPT >8 HOURS OF UNINTERRUPTED THROUGHOUT SHIFT. Q 15 MINUTE CHECKS MAINTAINED
[2018-10-17 06:28] LABS: BASO % 0.4 % (0.0-1.0); EOS # 0.3 10*3/uL (0.0-0.4); EOS % 2.6 % (1.0-4.0); HEMATOCRIT 36.2 % (37.0-47.0); HEMOGLOBIN 10.9 g/dl (12.0-16.0); LYMPH # 2.2 10*3/uL (1.3-4.4); MEAN CELL VOLUME 84.8 fl (81.0-99.0); MEAN CORPUSCULAR HGB 25.5 pg (27.0-31.0); MEAN CORPUSCULAR HGB CONC 30.1 g/dl (33.0-37.0); MEAN PLATELET VOLUME 12.1 fl (9.6-12.3); MONO # 0.9 10*3/uL (0.1-1.0); MONO % 8.9 % (3.0-9.0); NEUT # 6.6 10*3/uL (2.3-7.9); NEUT % 65.7 % (47.0-73.0); PLATELET COUNT AUTOMATED 286 10*3/uL (130-400); RED BLOOD COUNT 4.27 10*6/uL (4.10-5.10); RED CELL DISTRI WIDTH 18.1 % (0-14.5); WHITE BLOOD COUNT 10.1 10*3/uL (4.8-10.8)
[2018-10-17 06:33] LABS: BUN 14 mg/dl (7-24); CHLORIDE 108 mmol/L (98-107); CREATININE 0.69 mg/dL (0.55-1.02); POTASSIUM 4.7 mmol/L (3.5-5.1); SODIUM 142 mmol/L (136-145)
--- NOTE | 2018-10-17 08:00 | NUR ---
PT AWAKE, ALERT, SITTING IN DINING ROOM WATCHING TV WITH PEERS. PT ATE 75% OF BREAKFAST WITH 240CC FLUID INTAKE. DRANK ENTIRE ENSURE CONTAINER.
[2018-10-17 08:03] VITALS: BP 111/65
--- NOTE | 2018-10-17 09:14 | NUR ---
ON UNIT TO SEE PT AT THIS TIME, UPDATE GIVEN. MADE AWARE PT SPIT OUT ALL MEDICATIONS THIS AM.
--- NOTE | 2018-10-17 10:03 | NUR ---
ANISHA KEY ACCOUNT DIRECTOR ON UNIT TO SEE PT AT THIS TIME, UPDATE GIVEN.
--- NOTE | 2018-10-17 12:30 | NUR ---
PEG TUBE PLACEMENT VERIFIED VIA AUSCULTATION, ASSESSED FOR RESIUDAL, 0ML RESIDUAL NOTED. PEG TUBE FLUSHED WITH 250CC WATER, PT TOLERATED WELL. ABDOMINAL BINDER REPLACED. PT STATES "THANK YOU, THAT'S SO VERY KIND OF YOU TO DO THAT". PT RETURNED TO DINING ROOM WITH PEERS, WATCHING TV AT THIS TIME.
--- NOTE | 2018-10-17 19:13 | NUR ---
PT IS ALERT WITH CONFUSION. MEMORY GAPS NOTED. RESPS EASY AND EVEN ON ROOM AIR. MOOD IS DEPRESSED, APPEARS HOPELESS/HELPLESS WITH FLAT AFFECT. PT RELIES ON STAFF FOR ASSISTANCE WITH ALL ADL CARE. RITTER CATH I/P DRAINING CLEAR YELLOW URINE, SMALL AMOUNT OF SEDIMENT NOTED IN TUBING. PEG TUBE INTACT AND PATENT. FLUSHED PER ORDERS. PLACEMENT VERIFIED VIA AUSCULTATION. PT CONTINUES TO MAKE BIZARRE STATEMENTS AND STATES SHE IS "WORRIED ABOUT THE ANIMALS" AND WANTS TO "GO TO THE PHARMACY FOR SOME OXYCONTIN" WHEN THIS RN QUESTIONED WHY THE PT WANTED OXYCONTIN AND WHETHER OR NOT SHE WAS IN PAIN, PT STATES "NO. I'M NOT IN PAIN. I JUST THINK I SHOULD GET SOME, I DON'T KNOW WHY". PT WAS OFFERED PRN TYLENOL BUT REFUSED. PT COMPLIANT WITH AFTERNOON MEDICATIONS ORALLY WITH DIFFICULTY. Q15 MIN MONITORING CONTINUES PER POLICY. REFER TO [facility] FLOWSHEET FOR SPECIFIC DOCUMENTATION.
--- NOTE | 2018-10-17 19:58 | NUR ---
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 Pt was prompted to eat dinner. Pt seems delusional still but improving.
[2018-10-17 20:08] VITALS: BP 110/67
--- NOTE | 2018-10-17 23:10 | NUR ---
P-CONFUSION AND MEDICATION COMPLIANCE. PATIENT WITH SHORT TERM AND LICENSING REGISTRATION EXAMINER MEMORY DEFICITS. PATIENT WITH NO HALLUCINATAIONS OR DELUSIONS. PATIENT WITH NO SUICIDAL OR HOMICIDAL IDEATIONS. PATIENT ISOLATIVE AND WITHDRAW. I-REDIRECTION WITH 1:1 INTERACTION AND PRESENT REALITY ORIENTATION. EDUCATE AND ENCOURAGE MEDICATION COMPLIANCE. R-UNABLE TO REDIRECT WITH 1:1 INTERACTION AND REALITY PRESENTATION DUE TO COGNITIVE DEFICITS. PATIENT WITH PEG TUBE. PATIENT TUBE PATENT AND FLUSHES WITHOUT DIFFICULTY. PEG TUBE PLACEMENT VERIFIED WITH 30ML AIR BOLUS. RESIDUAL OF 0ML. RITTER PATENT AND DRAINING DARK YELLOW URINE. PATIENT INCONTINENT OF URINE X 1. RITTER REPOSITIONED AND BALLOON INFLATED. PATIENT TURNED AN REPOSITIONED THROUGHOUT SHIFT. PATIENT COMPLIANT WITH MEDICATIONS AT HS WITH ENCOURAGEMENT. P-CONTINUE MEDICATION COMPLIANCE, CONTINUE TO PRESENT REALITY, ENCOURAGE GROUP THERAPY WHILE AWAKE P-
--- NOTE | 2018-10-18 02:20 | NUR ---
24 HR chart check completed.
--- NOTE | 2018-10-18 05:15 | NUR ---
PATIENT RITTER PATENT WITH OUTPUT OF 650ML YELLOW URINE. PATIENT INCONTINENT OF BLADDDER X 1. RITTER CATHETER 16F REMOVED. PATIENT TOLERATED WITHOUT DIFFICULTY. RITTER CATHETER 18F PLACED WITH 10ML BALLOON INFLATED. PATIENT TOLERATED INSERTION WITHOUT DIFFICULTY. DRESSING CHANGE PROVIDED DUE TO OPTIFOAM DRESSING BEING SOILED. PATIENT WOUND TO COCCYX WITH MODERATE PURULENT GREEN DRAINAGE COMING FROM WOUND. SURROUNDING WOUND BED IS MASCERATED AND AREAS ARE REDDENED. FOUL SMELLING ODOR PRESENT. WOUND CULTURES COLLECTED FROM TWO DIFFERENT AREAS FROM COCCYX. WOUND CARE PROVIDED. DRESSING CHANGED AND SITE CLEANSED TO PEG TUBE SITE. PEG TUBE SITE MOIST AND REDDENED REDDENED SKIN. PATIENT REPOSITIONED. PEG TUBE PATENT AND FLUSHED WITH 200ML. PATIENT TOLERATED WELL.
--- NOTE | 2018-10-18 05:20 | NUR ---
DR CERVANTES NOTIFIED OF WOUND TO COCCYX WITH PURULENT AND FOULD SMELLING DRAINAGE. DR CERVANTES STATED HE WOULD ORDER A CULTURE OF THE WOUND.
--- NOTE | 2018-10-18 06:00 | NUR ---
PATIENT SLEPT 6 HOURS OF INTERRUPTED SLEEP THROUGHOUT SHIFT. Q 15 MINUTE CHECKS MAINTAINED
[2018-10-18 08:10] VITALS: BP 108/65
--- NOTE | 2018-10-18 16:49 | NUR ---
PM GROUP/EXERCISES/AROMATHERAPY/MEDITATION PT ATTENDED AND FIRST PART OF GROUP BUT WAS THEN NEEDED BY STAFF. PT DID NOT RETURN BACK TO GROUP. PT WILL CONTINUE TO BE ENCOURAGED TO ATTEND AND PARTICIPATE IN FUTUR EGROUP SESSIONS.
--- NOTE | 2018-10-18 16:51 | NUR ---
PERSONAL DAILY GOAL PT RESPONDED WELL TO MEDITATION PT GOAL TO CONTINUE TO USE RELAXTION TECHNIQUES SUCH MEDITATION.
--- NOTE | 2018-10-18 18:41 | NUR ---
P- CONFUSION, POOR MEMORY RECALL. HAD ONE EPISODE OF QUESTIONABLE VISUAL HALLUCINATIONS. DEPRESSED MOOD. I- ORIENTATION, MOOD AND BEHAVIOR ASSESSED. ASSESSED PT FOR SI/HI, INTENT OR PLAN. ASSESSED PT FOR S/S INTERNAL STIMULI, PARANOIA/DELUSIONS. ADL CARE PROVIDED FOR PT BY STAFF ASSIST X2. MEDICATIONS ADMINISTERED PER PHYSICIANS ORDERS. ENCOURAGED PT TO ATTEND AND PARTICIPATE IN GROUPS AND ACTIVITIES. R- PT IS ALERT AND ORIENTED TO PERSON ONLY, CONFUSION NOTED IN OTHER AREAS. ST/LT MEMORY DEFICITS NOTED. RESPS EASY AND EVEN ON ROOM AIR. MOOD APPEARS DEPRESSED WITH FLAT AFFECT. PT STATES SHE IS FEELING GOOD TODAY. SPEECH IS SOFT, COHERENT, ABLE TO MAKE NEEDS KNOWN WITHOUT DIFFICULTY. PT DENIES SI/HI, INTENT OR PLAN. PT DENIES HALLUCINATIONS, PT MADE ONE STATEMENT ABOUT SEEING SMALL SPIDERS IN HER BEDROOM. PT IS MEDICATION COMPLIANT, PT TOOK ALL MEDICATIONS ORALLY THIS DATE WITHOUT DIFFICULTY. PT COMPLIANT WITH HANDS ON CARE, NO AGGRESSIVE BEHAVIORS NOTED. P- CONTINUE CURRENT TREATMENT, MONITOR MOOD AND BEHAVIOR, PROVIDE REDIRECTION, 1:1 AND REORIENTATION NEEDED. CONTINUE TO ENCOURAGE MEDICATION COMPLIANCE WELL GROUP ATTENDANCE AND PARTICIPATION.
--- NOTE | 2018-10-18 18:59 | NUR ---
SHIFT CHART CHECK COMPLETED.
[2018-10-18 20:00] VITALS: BP 115/65
--- NOTE | 2018-10-18 21:56 | NUR ---
P---HOPELESS/HELPLESS I--GAVE CLIENT TIME TO HAVE 1:1. EMOTIONAL SUPPORT PROVIDED. ADLS PROVIDED. CLIENT DENIES ANY PROBLEMS. SHAKES HEAD NO R--WHISPERS I AM OK. NO OTHER VERBAL RESPONCE P--CONTINUE EMOTIONAL SUPPORT.
--- NOTE | 2018-10-18 21:59 | NUR ---
<40ML OF RESIDUAL NOTED IN PEG TUBE. CLIENT ABLE TAKE PART OF MEDICATION BY MOUTH REST VIA PEG TUBE. RITTER POSITIONED AWAY FROM SKIN. THICK BLANKET PLACED BETWEEN KNEES FOR PROTECTION. HOB UP TO PREVENT ASPIRATION. WILL CONTINUE TO TURN SIDE TO SIDE Q 2 HOURS AND PRN
--- NOTE | 2018-10-19 02:00 | NUR ---
WOUND CARE IGOR MCCLENDON WAS NOTIFIED OF RN'S REQUEST FOR HER TO SEE PEG INSERTION SITE.
--- NOTE | 2018-10-19 02:01 | NUR ---
24 HR chart check completed.
--- NOTE | 2018-10-19 05:53 | NUR ---
SLEPT INTERMITTENTLY ALL NIGHT. EASILY AWAKENED FOR TURNS.
--- NOTE | 2018-10-19 06:49 | NUR ---
ORLY BABCOCK [id number] Please refer to the physician's history and physical for past medical history, comorbid conditions, and allergies. Diagnosis: BIPOLAR DEPRESSION Ata Score: 15,AT RISK WOUND DESCRIPTIONS: This nurse was asked to see patient peg tube site. Peg tube site has satelitte lesion noted. Mild odor noted. Serosangunieous drainage noted at time of assessment. Several partial thickness areas noted at time of assessment. Surface the patient is resting on: Proform SKIN PREVENTION RECOMMENDATION: 1. Pressure redistribution support surface as appropriate 2. Elevate heels 3. Remove boots/TEDS every shift and reapply 4. Head of bed 30 degrees as tolerated 5. Assess nutrition and hydration 6. Manage moisture 7. Avoid the use of containment devices while in bed 8. Use absorptive products on surfaces limit layers of linens on bed 9. Turn and reposition every 1-2 hours in bed and every 1 hour in chair as tolerated 10. Weight shifts every 15 minutes while up in chair 11. Offloading with pillows or device to keep heels elevated off bed 12. Monitor skin at least every shift 13. Inspect under medical devices twice a day WOUND TREATMENT RECOMMENDATIONS: Cleanse peg tube site with nss and apply nystatin powder lightly every 12 hours and prn for soiling after application of powder please apply a drain sponge.
--- NOTE | 2018-10-19 06:58 | NUR ---
ORAL CARE DONE. WOUND CARE IN TO SEE.. PEG TUBE FLUSHED WITHOUT DIFFICULTY
[2018-10-19 07:23] VITALS: BP 116/70
--- NOTE | 2018-10-19 08:30 | NUR ---
Treatment Plan meeting with Dr. Wilson, RN, AT, and Automotive Refinisher. Plan for discharge at the end of the week, beginning of next. Pt. to return to [facility].
--- NOTE | 2018-10-19 10:14 | NUR ---
PHYSICAL AND OCCUPATIONAL THERAPY NOTIFIED OF RECONSULT FOR ADL FUNCITON.
--- NOTE | 2018-10-19 10:41 | NUR ---
Dr. Escobar notified of wound care recommendations.
--- NOTE | 2018-10-19 10:41 | NUR ---
DR. CANTRELL ON FLOOR TO ASSESS PATIENT. MADE AWARE OF RESULTS OF WOUND CULTURE OF COCCYX. ALSO, OF THE NEW AREA AROUND THE PEG SITE.
--- NOTE | 2018-10-19 11:51 | NUR ---
AM GROUP/EXERCISES/FOCUS/ART PT ATTENDED AND PARTICIPATED TO BEST OF ABILITY. PT ATTEMPTED TO USE WATERCOLOR BUT POURED WATER ONTO TRAY AND STATED "I'M DONE" THIS STAFF ATTEMPTED TO REDIRECT PT TO ALTERNATE ACTIVITYS BUT PT STATES "NO THANK YOU" TO ALL SUGGESTIONS. PT WILL CONTINUE TO ATTEND GROUP AND BE ENCOURAGED TO PARTICIPATE TO BEST OF ABILITY.
--- NOTE | 2018-10-19 11:53 | NUR ---
PERSONAL DAILY GOAL PT WILL UTILIZE RELAXTION TECHNIQUES SUCH MUSIC/MEDITATION TO ASSIST WITH ANXIETY.
--- NOTE | 2018-10-19 12:00 | NUR ---
ORAL LIQUID INTAKE : 650CC. PEG LIQUID INTAKE: 250CC. URINE OUTPUT: 350CC.
--- NOTE | 2018-10-19 12:28 | NUR ---
Collaborated with , [facility] Director, Wound Care nurse, MANAGER FINANCIAL REPORTING, case management, and unit staff regarding concerns for pt getting needs met and the report received this morning of worsening wound and PT stating pt was not to appropriate for care but stating pt needed PT/OT so attempted to clarify the plan as expressed concerns that pt needs to have PT/OT as she was doing well a couple months ago and then went into a few facilities and her condition had significantly worsened so he wanted to be sure she could do rehab again.
--- NOTE | 2018-10-19 12:30 | NUR ---
Shift chart check completed.
--- NOTE | 2018-10-19 13:00 | NUR ---
MADDY ON FLOOR FROM WOUND CENTER TO ASSESS PATIENT. MADDY CHANGED DRESSING TO COCCYX AND FOLLOWED WOUND CARE ORDERS. PATIENT TOOK THE PROCEDURE VERY WELL AND HAD NO COMPLAINTS OF PAIN DURING OR AFTER.
--- NOTE | 2018-10-19 13:01 | NUR ---
SADIQORLY K [id number] Please refer to the physician's history and physical for past medical history, comorbid conditions, and allergies. Diagnosis: BIPOLAR DEPRESSION Ata Score: 15,AT RISK WOUND DESCRIPTIONS: Location of the wound: Coccyx Type of wound: Stage 4 Thickness: Full Size: 5.2cm X 3.6cm X 0.3cm Tunneling: none Undermining: none Sinus Tract: none Presence of Exudate: Serosanguineous Amount: Moderate Color: Yellow, Red Odor: None Periwound Skin Appearance: Erythema Wound edges: approximated Pain (associated with wound): denied at time of assessment How does patient state this happened? patient unsure how this happened. Surface the patient is resting on: Proform SKIN PREVENTION RECOMMENDATION: 1. Pressure redistribution support surface as appropriate 2. Elevate heels 3. Remove boots/TEDS every shift and reapply 4. Head of bed 30 degrees as tolerated 5. Assess nutrition and hydration 6. Manage moisture 7. Avoid the use of containment devices while in bed 8. Use absorptive products on surfaces limit layers of linens on bed 9. Turn and reposition every 1-2 hours in bed and every 1 hour in chair as tolerated 10. Weight shifts every 15 minutes while up in chair 11. Offloading with pillows or device to keep heels elevated off bed 12. Monitor skin at least every shift 13. Inspect under medical devices twice a day WOUND TREATMENT RECOMMENDATIONS: Continue Stage 3/4 guideline for coccyx: Cleanse wound with NSS apply sureprep and allow to dry. Cleanse wound with Dakins. Apply Maxorb II and cover with sacral optifoam gentle.
--- NOTE | 2018-10-19 13:41 | NUR ---
PHYSICAL THERAPY 1:1 Time: Pain on a scale of 0-10 > Prior to treatment: 0/10 Post treatment: 0/10 Progress note: Pt seen on this date for initial physical therapy assessment; please refer to pts chart for details. Pt performed supine <-> sit with SBA and verbal cues for encouragement. She sat at EOB for 3 minutes with F/F+ balance although very kyphotic in nature. She completed sit <-> stand x 3 with mod A. She ambulated 10' x 1 and 5' x 1 with mod A and verbal cues for increasing stride. LISETTE JON PT
--- NOTE | 2018-10-19 14:46 | NUR ---
P- DEPRESSED TONE AND FLAT AFFECT. I- 1:1 INTERACTION WITH EMOTIONAL SUPPORT PROVIDED. ATTEMPTED TO ENGAGE PATIENT IN CONVERSATION. ASKED PATIENT IF THERE WAS SOMETHING BOTHERING HER AND THERE IS ANYTHING I CAN DO. PROVIDE MEDICATIONS AND EDUCATIONS. ENCOURAGE TO PARTICIPATE IN GROUP AND INTERACT WITH PEERS. ASSESS FOR SUICIDAL IDEATION. R- PATIENT STATED "I'M DOING FINE". PATIENT SPEAKS IN A SAD TONE AND FLAT AFFECT. PATIENT ANSWERS QUESTIONS AND TALKS WITH STAFF WHEN TALKED TO. PATIENT DENIED ANYTHING BOTHERING HER. HAS BEEN MEDICATION COMPLIANT SO FAR THIS SHIFT. PARTICIPATES IN GROUP BUT DOES NOT INTERACT WITH OTHER PEERS. DOES INTERACT WITH STAFF WHEN SPOKEN TO. DENIES ANY SUICIDAL IDEATION. P- CONTINUE TO MONITOR FOR DEPRESSED MOOD AND SUICIDAL IDEATION. CONTINUE TO ENCOURAGE TO PARTICIPATE IN GROUP AND INTERACT WITH PEERS/STAFF. PROVIDE MEDICATIONS AND THERAPIES PRESCRIBED BY THE PHYSICIAN. Q15 MINUTE CHECKS MAINTAINED FOR SAFETY. FALLING STAR PROGRAM IN PLACE FOR SAFETY.
--- NOTE | 2018-10-19 15:35 | NUR ---
PM GROUP/MOVIE PT CHOSE NOT TO ATTEND BUT STAYED IN BED. PT WILL CONTINUE TO BE ENCOURAGED TO ATTEND AND PARTICIPATE IN FUTURE GROUP SESSIONS.
--- NOTE | 2018-10-19 18:00 | NUR ---
250CC PEG TUBE FLUSH. AIR BOLUS AUSCULTATED. PATIENT HAD NO COMPLAINTS OF DISCOMFORT DURING WATER FLUSH. ORAL LIQUID INTAKE OF 400CC. PEG SITE STILL RED AROUND. DRESSING CHANGED AT THIS TIME.
--- NOTE | 2018-10-19 19:01 | NUR ---
ORAL CARE PROVIDED.
[2018-10-19 20:00] VITALS: BP 116/65
--- NOTE | 2018-10-19 21:00 | NUR ---
P--DEPRESSION/ HOPLESS/HELPLESS I--EMOTIONAL SUPPORT. DISCUSSED DIFFERENT COPING TECHNIQUES TO TRY. EDUCATED ON MEDICATIONS AND EACH USE. ENCOURAGED HER TO ASK FOR ANY NEEDS OR QUESTIONS. FED HER APPLESAUSE WITH MEDICATIONS. WILL REPOSITION Q 2 HOURS AND PRN TO PREVENT BREAKDOWN. APPEARS DEPRESSED AND LONELY R--STATES SHE UNDERSTANDS MEDICATION BUT HAS A VERY FLAT AFFECT AND EYES APPEARS. P--CONTINUE TO PROVIE EMOTIONAL SUPPORT AND ENCOURAGEMENT. CONTINUE TO GIVE CLIENT TIME VERBALIZE FEELINGS AND NEEDS
--- NOTE | 2018-10-20 04:43 | NUR ---
24 HR chart check completed.
--- NOTE | 2018-10-20 07:35 | NUR ---
PHYSICAL THERAPY Patient seen this am for therapy visit and was sitting up in activity room Lashawn chair upon therapist arrival. Patient was alert and pleasant this morning and needed a little extra time to answer questions secondary to slow processing of information. U staff were present during all treatment time as observation only as patient performed several sit to stand transfers with Min A, demonstrating retrograde standing posture, use of wh walker support, tolerating 45 seconds or less each trial. Patient also ambulated with use of wh walker, 8'x 1, Min A, demonstrating NBOS, decreased stride and "steppage" gait pattern due to L side drop foot. Patient returned to Lashawn chair with lap tray and body alarm in activity room, remaining under [facility] staff Supervision. Will continue per POC as tolerated, total treatment time 14 minutes. Jarrod Carlson, CABINET MOUNTER
--- NOTE | 2018-10-20 07:59 | NUR ---
Occupational Therapy evaluation completed on 3rd floor with full eval to follow. Precautions: BHU, alarms, fall risk. Moderate complexity level [id number]. Work on sitting balance during ADL tasks, functional mobility, bed mobility. Recommend return to NH with therapy orders. Thank you for this referral Geraldine Mane OTR/L
[2018-10-20 08:07] VITALS: BP 120/62
--- NOTE | 2018-10-20 08:17 | NUR ---
ON UNIT TO ASSESS PT.
--- NOTE | 2018-10-20 08:30 | NUR ---
Treatment Plan meeting with Dr. Wilson, RN, AT, SW and Manager Of Clinical. Plan for discharge at the end of the week, Beginning of next week. Pt. to return to [facility].
--- NOTE | 2018-10-20 11:30 | NUR ---
Participated in court hearing with pt, web search evaluator, senior attorney Delia, Dr. Wilson and med student and it was determined that pt will remain in [facility] under court order civil committment at this time. Pt was provided positive reinforcement for engaging in PT yesterday and standing and walking a little. Pt provided this creative writer a compliment and was thanked. Pt appeared more alert than previously but still seems confused and disoriented at times.
--- NOTE | 2018-10-20 12:11 | NUR ---
AM GROUP/FOCUS ON TASK PT ATTENDED AND PARTICIPATED IN ALL GROUP ACTIVITIES. PT HELPED TO SORT BEADS AND THEN STRUNG A BRACELET. PT EXPRESSED NO SUICIDAL IDEATIONS DURING GROUP. PT WILL CONTINUE TO ATTEND AND PARTICIPATE IN GROUP
--- NOTE | 2018-10-20 12:11 | NUR ---
PERSONAL DAILY GOAL SELF-AWARENESS PT STATED,"I FEEL LOST. I WANT TO GET OUT OF HERE" WHEN QUESTIONED, PT DOES NOT HAVE A RESPONSE.
--- NOTE | 2018-10-20 15:29 | NUR ---
P: DEPRESSED MOOD, FLAT AFFECT, HOPELESS/HELPLESS I: PROVIDE 1:1 EMOTIONAL SUPPORT AND 1:1 FOR PT TO VIOCE FEELINGS, ENCOURAGE PARTICIPATION IN GROUPS/ACTIVITIES, ENCOURAGE SOCIALIZATION WITH STAFF AND PEERS, ENCOURGAE PT TO FEED SELF AND PARTICIPATE IN CARE R: PT FEEDS SELF, REQUIRED ENCOURAGEMENT AT LUNCH TO DO SO, PT WILL SPEAK TO WHEN ASKED QUESTIONS, DOES NOT INITIATE CONVERSATION P: CONTINUE TO PROVIDE EMOTIONAL SUPPORT AND 1:1 FOR PT TO VOICE FEELINGS, ENCOURAGE SOCIALIZATION WITH STAFF AND PEERS PT ALERT TO PERSON, PLACE KNOWING SHE IN THE HOSPITAL BUT THINKS SHE IS AT [facility]. NO HALLUCINATIONS OR DELUSIONS NOTED AT THIS TIME. PT DENIES ANY SUICIDAL THOUGHTS. PT UP TO A GERICHAIR, REQUIRES 2 STAFF ASSIST FOR TRANSFERS. PT HAS RITTER CATH DRAINING DARK YELLOW URINE. PT INCONTINENT OF BOWEL, CARE PROVIDED NEEDED.
--- NOTE | 2018-10-20 15:50 | NUR ---
PM GROUP/MUSIC AND SOCIALIZATION PT ATTENDED AND PARTICIPATED IN ALL GROUP ACTIVITIES. PT EXHIBITED SOME CONFUSION BY STATING, "I WANT TO GO OUT." AND KEPT REPEATING OVER AND OVER, "ANGELA, ANGELA, ANGELA, ANGELA, ANGELA,...." PT WAS QUESTIONED AND SAID THAT SHE WAS LEAVING AND WANTED TO SAY GOOD BYE. PT SOCIALIZED WITH PEERS AND STAFF AND CONVERSATION WAS IN CONTEXT.
--- NOTE | 2018-10-20 16:42 | NUR ---
Pt demonstrates progress towards goals with CATALYST CONCENTRATION OPERATOR reporting good progress continues with plan to extend goals at this time until 10/29/18. Jackie Harris, PT
--- NOTE | 2018-10-20 17:14 | NUR ---
PEG TUBE FLUSHED WITH 200CC WITHOUT DIFFICULTY, PATIENT TOLERATED WELL.
[2018-10-20 19:50] VITALS: BP 112/60
--- NOTE | 2018-10-20 21:14 | NUR ---
P--HOPELESS/HELPLESS I--EMOTIONAL SUPPORT. MEDICATION EDUCATION. ENCOURAGED HER TO INTERACT WITH PEERS AND STAFF. PRAISE FOR ACCOMPLISHMENTS. R--I'M OK. TOOK MEDICATION AND DRANK 2CALHN P--CONTINUE EMOTIONAL SUPPORT AND PRAISE. MEDICATE PER ORDERS.
--- NOTE | 2018-10-21 01:25 | NUR ---
24 HR chart check completed.
--- NOTE | 2018-10-21 07:00 | NUR ---
PHYSICAL THERAPY Patient seen this am for therapy visit and was semi reclined in Lashawn chair near table in activity room upon therapist arrival. Patient presented with B LE foot drop, L > R with OT Janitor Head in room for observation only. Patient performed B ankle DF x 20 reps each. Patient transfers sit to stand Min A from chair x several trials with use of walker standing support. Patient demonstrates improved initial standing balance with no Retrograde posture noted this session. Patient also ambulated 18'x 1, 10'x 1, walker, Min/Mod, demonstrating "steppage" gait pattern secondary to drop foot. Patient was very pleased with her progress this morning and returned to Lashawn chair with increased fatigue. Patient remained in chair at activity room table awaiting breakfast, under [facility] staff Supvervision. Will continue per POC as tolerated, total treatment time 17 minutes. Jarrod Carlson, NUTRITION TECH
[2018-10-21 07:13] LABS: BASO % 0.2 % (0.0-1.0); EOS # 0.3 10*3/uL (0.0-0.4); EOS % 2.4 % (1.0-4.0); HEMATOCRIT 32.3 % (37.0-47.0); HEMOGLOBIN 9.7 g/dl (12.0-16.0); LYMPH # 1.1 10*3/uL (1.3-4.4); LYMPH % 8.6 % (27.0-41.0); MEAN CELL VOLUME 83.9 fl (81.0-99.0); MEAN CORPUSCULAR HGB 25.2 pg (27.0-31.0); MEAN PLATELET VOLUME 11.8 fl (9.6-12.3); MONO # 0.8 10*3/uL (0.1-1.0); NEUT # 10.3 10*3/uL (2.3-7.9); NEUT % 82.4 % (47.0-73.0); PLATELET COUNT AUTOMATED 342 10*3/uL (130-400); RED BLOOD COUNT 3.85 10*6/uL (4.10-5.10); RED CELL DISTRI WIDTH 17.7 % (0-14.5); WHITE BLOOD COUNT 12.5 10*3/uL (4.8-10.8)
--- NOTE | 2018-10-21 07:23 | NUR ---
OT NOTE Pt was seen this A.M. 1:1 for 23 minute OT session. Upon arrival pt was sitting semi reclined in conchis chair in dining room. Pt identified by name and on wrsitband and had no complaints at this time. Pt was taken out into the hallway where her therapy session was completed. While sitting in conchis chair pt donned her socks with SBA. Pt completed multiple sit to stand transfers from chair level with Henrik and use of hand rail for UE support. While standing challenged pt's static standing tolerance needed for increased I in self care tasks and functional transfers, pt was able to tolerate aprox 40 sec and 60 seconds before sitting due to fatigue. Functional mobility then completed with Henrik due to retrograde posture and use of w/w for UE support. Pt required constant verbal prompts throughout to correct her posture. Pt was left sitting upright in conchis chair in dining room with body alarm on for safety and under [facility] staff supervision. Continue with rec D/C plan to [facility] with therapy. MATT Zapata/Dean
[2018-10-21 08:01] VITALS: BP 111/61
--- NOTE | 2018-10-21 08:30 | NUR ---
Treatment Plan meeting with Dr. Wilson, RN, AT, SW and Space Scheduler. Plan for discharge Friday.
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
--- NOTE | 2018-10-21 12:07 | NUR ---
AM GROUP/CURRENT EVENTS/FOCUS GROUP PT ATTENDED AND PARTICIPATED IN ALL GROUP ACTIVIITES. PT EXPRESSED NO SUICIDAL IDEATIONS OR EXHIBITED ANY SIGNS OF ANXIETY DURING GROUP. PT PARTICIPATED IN GROUP DISCUSSION AND WAS ON SUBJECT.
--- NOTE | 2018-10-21 12:59 | NUR ---
DRESSING CHANGED TO WOUND ON COCCYX PER ORDERS, NOTIFIED IGOR COMPREHENSIVE ADVISOR, PER IGOR HAVE NIGHT SHELISSA CALL HER IN THE MORNING WHEN GETTING THE PT UP FORT HER TO COME LOOK AT IT. PT TOLERATED DRESSING CHANGE WELL. PEG TUBE FLUSHED WITH 200CC OF WATER, NO RESIDUAL NOTED. DRESSING CHANGED PER ORDERS. PT TOLERATED WELL.
--- NOTE | 2018-10-21 15:51 | NUR ---
PM GROUP/CREATIVE OUTLETS PT ATTENDED AND PARTICIPATED IN ALL GROUP ACTIVITIES. PT EXPRESSED NO SUICIDALIDEATIONS OR EXHIBITED ANY SIGNS OF ANXIETY DURING GROUP. PT WAS TALKATIVE AND ON TASK.
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
[2018-10-21 20:06] VITALS: BP 111/62
--- NOTE | 2018-10-21 23:40 | NUR ---
24 HR chart check completed.
--- NOTE | 2018-10-22 05:42 | NUR ---
SADIQORLY K [id number] Please refer to the physician's history and physical for past medical history, comorbid conditions, and allergies. Diagnosis: BIPOLAR DEPRESSION Ata Score: 15,AT RISK WOUND DESCRIPTIONS: Location of the wound: Coccyx Type of wound: Stage 4 Thickness: Full Size: 4.7cm x 3.4cm x 0.3cm Tunneling: none Undermining: none Sinus Tract: none Presence of Exudate: Serosanguineous Amount: Moderate Color: Yellow, red Odor: Foul Periwound Skin Appearance: Erythema Wound edges: epibole Pain (associated with wound): none at time of assessment Surface the patient is resting on: Proform SKIN PREVENTION RECOMMENDATION: 1. Pressure redistribution support surface as appropriate 2. Elevate heels 3. Remove boots/TEDS every shift and reapply 4. Head of bed 30 degrees as tolerated 5. Assess nutrition and hydration 6. Manage moisture 7. Avoid the use of containment devices while in bed 8. Use absorptive products on surfaces limit layers of linens on bed 9. Turn and reposition every 1-2 hours in bed and every 1 hour in chair as tolerated 10. Weight shifts every 15 minutes while up in chair 11. Offloading with pillows or device to keep heels elevated off bed 12. Monitor skin at least every shift 13. Inspect under medical devices twice a day WOUND TREATMENT RECOMMENDATIONS: Consult Dr. Waters for possible debridement. Clarify stage 4 guidelines: Cleanse coccyx with nss and apply sureprep around the wound therahoney to wound bed then apply maxorb II then cover with optifoam gentle. Wheelchair cushion when oob. Heel raiser pro boots.
--- NOTE | 2018-10-22 06:30 | NUR ---
PATIENT SLEPT 1 HOUR OF INTERRUPTED SLEEP THROUGHOUT SHIFT. Q 15 MINUTE CHECKS MAINTAINED
--- NOTE | 2018-10-22 07:25 | NUR ---
PHYSICAL THERAPY Patient seen this am for therapy visit and was sitting up in Lashawn chair at activity room table upon therapist arrival. OT preschool assistant teacher was present for observation only this visit as patient reported no new c/o's at this time. Patient tolerated B DF prolonged stretch, followed by AROM supination L LE, eversion and DF x 10 reps each to improve drop foot. Patient transfers sit to stand Min A at rail with B UE support, Min A, tolerating < 30 seconds each trial secondary to not sleeping well last night. Patient needed v/c to correct retrograde posture and amublated with use of wh walker, 20'x 1, 10' x 1, Min A, while demonstrating "steppage" gait pattern. Patient fatigues quickly and returned to Lashawn chair in activity room. [facility] Supervision awaiting breakfast. Will continue per POC as tolerated, total treatment time 17 minutes. Jarrod Carlson, MATERIAL CHECKER
--- NOTE | 2018-10-22 07:30 | NUR ---
OT NOTE Pt was seen this A.M. 1:1 for 15 minute OT session. Upon arrival pt was sitting upright in conchis chair in dining room. Pt identified by name and and had no complaints at this time. Pt was taken out into the hallway where her session was completed. Pt donned B socks while sitting with SBA. Pt then completed sit to stand transfers from chair level with Henrik and use of hand railing for UE support. Challenged pt's static standing tolerance needed for increased I in self care tasks and functional transfers, pt was able to tolerate aprox 30 seconds at a time before sitting due to fatigue. Throughout pt required verbal prompts to correct her posture and hold her head up. Pt was left sitting upright in conchis chair in dining room with lap tray in place, body alarm activated for safety, and under [facility] staff supervision. BREANA Zapata
[2018-10-22 08:02] VITALS: BP 130/64
--- NOTE | 2018-10-22 08:30 | NUR ---
Treatment Plan meeting with Dr. Wilson, RN, AT, SW and Lining Closer. Plan for discharge Next week. Possible Friday.
--- NOTE | 2018-10-22 09:14 | NUR ---
PERSONAL DAILY GOAL FEELING IDENTIFICATION PT STATES, "I AM FEELING PRETTY GOOD" BUT THEN STATES CONFUSION OVER FEELINGS. PT WILL BENEFIT FROM RECOGNIZING AND EXPRESSING FEELINGS ACURATELY.
--- NOTE | 2018-10-22 10:05 | NUR ---
Dr. Harrison notified of wound care recommendations.
--- NOTE | 2018-10-22 10:15 | NUR ---
PT IS PLEASANT, COOPERATIVE WITH ASSESSMENT. SPEECH IS SOFT, SLOW. STATES THAT SHE DID NOT SLEEP WELL LAST NIGHT. PT REPORTS GETTING UP MANY TIMES T/O NIGHT, BUT STATES SHE FEELS "PRETTY GOOD" TODAY. PT GIVEN SOME 1:1 FOR EMOTIONAL SUPPORT. ENCOURAGED TO PARTICIPATE IN GROUP THERAPY/ACTIVITY. ENCOURAGED TO STAY AWAKE MUCH POSSIBLE T/O THE DAY TO PROMOTE SLEEP AT HS. PT SMILING, STATING SHE WOULD ATTEMPT TO STAY AWAKE. PT STATED SHE WOULD ATTEND GROUP THERAPY. PLAN TO CONINUE TO ENCOURAGE PT TO ATTEND GROUP THERAPY FOR EMOTIONAL SUPPORT AND SOCIALIZATION. ENCOURAGE CONTINUED MEDICATION COMPLIANCE. PROVIDE ACTIVITIES FOR PT TO DO T/O SHIFT TO PROMOTE PT STAYING AWAKE AND ALERT.
--- NOTE | 2018-10-22 10:37 | NUR ---
Shift chart check completed.
--- NOTE | 2018-10-22 12:13 | NUR ---
AM GROUP/INTERPERSONAL INTERACTIONS PT WAS PRESENT FOR GROUP AND EXHIBITED A HIGH LEVEL OF CONFUSION. PT WANTED THE TRAY OFF AND WANTED TO GET UP AND STATED, "I NEED TO FIND MY OTHER SHOE SO THAT I CAN GO GET IN MY CAR." PT WAS ALSO "BALLING UP" HER GOWN AND STATED, "I NEED TO CHANGE THIS". PT WAS REORIENTED FOR A SHORT TIME
--- NOTE | 2018-10-22 13:50 | NUR ---
PEG TUBE AUSCULTATED FOR PLACEMENT, AIR BOLUS AUDIBLE. RESIDUAL PULLED, ZERO. FLUSHED WITH 250CC WATER AT THIS TIME WITHOUT DIFFICULTY. HOB ELEVATED. PT TOLERATED WELL.
--- NOTE | 2018-10-22 15:51 | NUR ---
PM GROUP/STRESS REDUCTION PT DID NOT ATTEND GROUP UNTIL THE LAST HALF. PT PARTICIPATED IN CONVERSATION AND WITH BUILDING COGS AND GEERS. PT EXPRESSED MILD CONFUSION BY STATING, "I NEED TO PUT THE WATER ON FOR TEA" WHEN QUESTIONED, PT STATED, "OH, I'M GETTING MY TIMES MIXED UP"
[2018-10-22 16:15] LABS: BILIRUBIN NEGATIVE (NEGATIVE); BLOOD 1+ (NEGATIVE); CLARITY CLEAR (CLEAR); COLOR YELLOW (YELLOW); GLUCOSE NEGATIVE (NEGATIVE); KETONE NEGATIVE (NEGATIVE); LEUKO ESTERASE 1+ (NEGATIVE); NITRITE NEGATIVE (NEGATIVE); PH 6.5 (5.0-9.0); SPECIFIC GRAVITY <= 1.005 (1.005-1.030); UROBILINOGEN 0.2 E.U./dl (0.2-1.0)
[2018-10-22 16:27] LABS: RBC 16-20 rbc/hpf (0-2); WBC 31-40 wbc/hpf (0-5)
[2018-10-22 16:28] LABS: BACTERIA 2+
--- NOTE | 2018-10-22 18:26 | NUR ---
PEG TUBE AUSCULATATED FOR PLACEMENT. AIR BOLUS AUDIBLE, RESIDUAL PULLED, NONE. FLUSHED WITH 250CC WATER, FLUSHED WITHOUT DIFFICULTY. HOB ELEVATED. PT TOLERATED WELL.
[2018-10-22 20:00] VITALS: BP 112/62
--- NOTE | 2018-10-22 23:20 | NUR ---
24 HR chart check completed.
--- NOTE | 2018-10-23 06:23 | NUR ---
PATIENT SLEPT 4-5 HOURS OF INTERRUPTED SLEEP THROUGHOUT SHIFT. Q 15 MINUTE CHECKS MAINTAINED
--- NOTE | 2018-10-23 07:00 | NUR ---
OT NOTE Attempted to see pt this A.M. for OT session and upon arrival pt was sitting reclined in conchis chair asleep. Pt would not arouse to verbal/tactile stimuli. Will check back at a later time/date. MATT Zapata/Dean
--- NOTE | 2018-10-23 08:15 | NUR ---
PHYSICAL THERAPY Patient was sound asleep in activity room Lashawn chair when approached for therapy visit and unable to arouse at this time. Will continue per POC as able. OT assistant basketball coach present for obervation only when patient was approached. Jarrod Carlson, TASSEL MAKING MACHINE OPERATOR
[2018-10-23 08:17] VITALS: BP 101/59
--- NOTE | 2018-10-23 08:30 | NUR ---
Treatment Plan meeting with Dr. Wilson, RN, AT, and Sandblaster Paint Sprayer. Plan for discharge Friday. Pt. to return to [facility].
--- NOTE | 2018-10-23 11:30 | NUR ---
Clinical Updates faxed to [facility].
--- NOTE | 2018-10-23 12:21 | NUR ---
AM GROUP/EXERCISES/GAME/ART PT DID NOT ATTEND OR PARTICIPATE IN GROUP BUT STAYED IN BED. PT WILL CONTINUE TO BE ENCOURAGED TO ATTEND AND PARTICIPATE IN FUTURE GROUP SESSIONS.
--- NOTE | 2018-10-23 13:45 | NUR ---
DR. GUY ON UNIT TO ASSESS PATIENT.
--- NOTE | 2018-10-23 14:39 | NUR ---
PT APPROVED 10/23 THUR 10/25 NEXT REVIEW 10/26.
[2018-10-23 19:34] VITALS: BP 101/60
--- NOTE | 2018-10-24 00:15 | NUR ---
24 HR chart check completed.
--- NOTE | 2018-10-24 05:41 | NUR ---
Patient slept approx 6 hours throughout shift.
[2018-10-24 08:00] VITALS: BP 115/60
[2018-10-24 11:10] LABS: BASO % 0.3 % (0.0-1.0); EOS # 0.3 10*3/uL (0.0-0.4); EOS % 2.1 % (1.0-4.0); HEMOGLOBIN 10.2 g/dl (12.0-16.0); LYMPH # 1.8 10*3/uL (1.3-4.4); LYMPH % 15.4 % (27.0-41.0); MEAN CELL VOLUME 84.2 fl (81.0-99.0); MEAN CORPUSCULAR HGB 25.2 pg (27.0-31.0); MEAN PLATELET VOLUME 10.4 fl (9.6-12.3); MONO % 7.9 % (3.0-9.0); NEUT # 8.8 10*3/uL (2.3-7.9); NEUT % 73.5 % (47.0-73.0); PLATELET COUNT AUTOMATED 369 10*3/uL (130-400); RED BLOOD COUNT 4.04 10*6/uL (4.10-5.10); RED CELL DISTRI WIDTH 17.5 % (0-14.5)
[2018-10-24 11:28] LABS: ALBUMIN 2.5 gm/dl (3.1-4.5); ALKALINE PHOSPHATASE 140 U/L (45-117); BUN 23 mg/dl (7-24); CHLORIDE 115 mmol/L (98-107); CREATININE 0.83 mg/dL (0.55-1.02); POTASSIUM 4.9 mmol/L (3.5-5.1); SGOT/AST 11 IU/L (3-35); SGPT/ALT 14 U/L (12-78); SODIUM 149 mmol/L (136-145)
--- NOTE | 2018-10-24 11:45 | NUR ---
PT DECREASED ALERTNESS, WILL AWAKEN WITH TACTILE STIMULATION. PERRLA, MOUTH DRY WITH DECREASED RESPS OF 14, T 97.8 100/60 78 APICAL. PT GIVEN 200 BOLUS OF H2O AT THIS TIME. CONTINUE TO MONITOR PT.
--- NOTE | 2018-10-24 12:18 | NUR ---
AM GROUP/EXERCISE AND BRAIN GAMES PT DID NOT ATTEND MORNING GROUP THERAPY. PT WAS SOUND ASLEEP RECLINED IN A ROSAURA CHAIR BEING MONITORED BY NURSE.
--- NOTE | 2018-10-24 15:58 | NUR ---
PM GROUP/LEISURE INTERESTS PT WAS UNABLE TO ATTEND AFTERNOON GROUP THERAPY. PT HAS BEEN SLEEPING THE ENTIRE DAY AND WAS IN BED
--- NOTE | 2018-10-24 16:14 | NUR ---
DR BECKWITH UPDATE ON PT LAB WORK, STATED HE WOULD NOTIFY DR. BECK
[2018-10-24 20:18] VITALS: BP 110/62
--- NOTE | 2018-10-24 23:50 | NUR ---
PT IS ALERT WITH CONFUSION. PATIENT WITH SHORT TERM AND [facility] MEMORY DEFICITS. NO RESPIRATORY DISTRESS. PATIENT WITH NO HOMICIDAL OR SUIDICAL IDEATIONS. PATIENT WITH PEG TUBE. PEG TUBE PATENT WITH 200ML. PATIENT WITH FOLWY CATHERTER. RITTER CATHETER PATENT WITH DARK YELLOW URINE DRAINING. SEE [facility] FLOW SHEET FOR SPECIC MONITORING
--- NOTE | 2018-10-25 00:02 | NUR ---
24 HR chart check completed.
--- NOTE | 2018-10-25 05:48 | NUR ---
PATIENT SLEPT >8 HOURS UNINTERRUPTED THROUGHOUT SHIFT. Q 15 MINUTE CHECKS MAINTAINED
[2018-10-25 07:33] VITALS: BP 112/62
--- NOTE | 2018-10-25 10:47 | NUR ---
ON UNIT TO ASSESS PT.
--- NOTE | 2018-10-25 16:20 | NUR ---
PT ALERT TO PERSON ONLY, THINK SHE'S AT [facility]. SHORT TERM MEMORY DEFICITS NOTED. PT CALM, PLEASANT AND COOPERATIVE WITH STAFF AND PEERS. NO HALLUCINATIONS OR DELUSIONS NOTED. PT DENIES ANY SUICIDAL THOUGHTS. PT UP TO GERICHAIR D/T UNSTEADY GAIT. PT INCONTINENT OF BOWEL, CARE PROVIDED NEEDED. PT HAS RITTER CATH DRAINING DARK YELLOW URINE. PLAN IS TO MONITOR PT BEHAVIORS ON Q15 MINS SAFETY CHECKS, ENCOURAGE MED COMPLIANCE AND PROVIDE MED EDUCATION, PROVIDE EMOTIONAL SUPPORT AND 1:1 FOR PT TO VOICE FEELINGS.
--- NOTE | 2018-10-25 16:45 | NUR ---
PM GROUP/EXERCISES/ART/DAILY POSITIVITY PT ATTENDED GROUP BUT SLEPT THROUGHOUT. PT WILL CONTINUE TO ATTEND AND BE ENCOURAGED TO PARTICIPATE TO BEST OF ABILITY WHEN AWAKE AND ABLE.
[2018-10-25 20:00] VITALS: BP 110/68
--- NOTE | 2018-10-25 23:30 | NUR ---
PATIENT ALERT WITH CONFUSION. SHORT TERM AND CELL ASSEMBLY PINNER MEMORY DEFICITS. PATIENT WITH NO HALLUCINATIONS OR DELUSIONS. PATIENT WITH NO SUICIDAL OR HOMICIDAL IDEATIONS. PATIENT TURNED AND REPOSITONED Q 2 HOUR FOR COMFORT AND PRESSURE RELIEF. PATIENT CONTINUES WITH RITTER CATHETER. RITTER CATHETER PATENT AND DRAINING DARK YELLOW URINE. PATIENT WITH PEG TUBE AND PLACEMENT VERIFIED WITH 30ML AIR BOLUS. NO RESIDUAL NOTED. ABDOMINAL BINDER INTACT. PATIENT MEDICATION COMPLAINT. NOURISHMENT AND FLUIDS PROVIDED. PATIENT INCONTINENT OF BOWEL. SEE [facility] FLOW SHEET FOR SPECIFIC MONITORING
--- NOTE | 2018-10-26 00:14 | NUR ---
24 HR chart check completed.
--- NOTE | 2018-10-26 05:47 | NUR ---
PATIENT SLEPT 5 HOURS OF INTERRUPTED SLEEP THROUGHOUT SHIFT. Q 15 MINUTE CHECKS MAINTAINED
--- NOTE | 2018-10-26 07:18 | NUR ---
PHYSICAL THERAPY Patient seen this am for therapy visit and was resting semi reclined in activity room Lashawn chair upon therapist arrival. Patient was very pleasant this morning voicing no new c/o's at this time.l OT administrative assistant data entry was present for observation only during entire therapy session. Patient transfers sit to stand, MIN A and ambulates with use wh walker, Min/CGA, demonstrating NBOS and decreased stride. Patient still having several bouts of retrograde posture. however able to correct with v/c. Patient very unsteady during 180 degree turns, demonstrating L side lean, requiring therapist support to avoid risk of falling. Patient also fatigues quickly upon return to Lashawn chair, 45' x 1. Patient remained in Lashawn chair in activity room awaiting breakfast under [facility] staff Supervision. Will continue per POC as tolerated, total treatment time 13 minutes. Jarrod Carlson, WATER/WASTEWATER PROJECT MANAGER
--- NOTE | 2018-10-26 07:20 | NUR ---
OT NOTE Pt was seen this A.M. 1:1 for 15 minute OT session. Upon arrival pt was sitting upright in conchis chair in the dining room. Pt identified by name and and had no complaints at this time. Pt was taken out into the hallway where her therapy session was completed. Pt donned B socks with SBA. Multiple sit to stand transfers where completed from chair level with Henrik and use of hand railing for UE support. Challenged pt's static standing tolerance needed for increased I in self care tasks and functional transfers, pt was able to tolerate aprox 20 sec, 30 sec, and 25 seconds before sitting due to fatigue. Throughout pt required verbal prompts to maintain upright posture due to going retrograde, widen base of support, and reaching back for chair when sitting to increase safety awareness. Pt then completed BUE towel exercises over all planes of motion with emphasis on triceps for 1 X 10 to increase UE strength needed for increased I in self care tasks and functional transfers. Pt was left sitting upright in conchis chair with lap tray in place and under [facility] staff supervision. Continue with rec D/C plan to snf with therapy. MATT Zapata/Dean
[2018-10-26 08:02] VITALS: BP 130/72
[2018-10-26] MEDS ORDERED: B121000 MCG/1 IM (09:30)
[2018-10-26] MEDS ORDERED: VITAMIN D32000 UNI1 PO (09:30)
[2018-10-26] MEDS ORDERED: BENZTROPINE ME0.5 MG PO (09:30)
[2018-10-26] MEDS ORDERED: DULOXETINE HCL60 MG PO (09:30)
[2018-10-26] MEDS ORDERED: RIVASTIGMINE TAR3 M1 PO (09:30)
[2018-10-26] MEDS ORDERED: CLOZAPINE100 MG PO (09:30)
[2018-10-26] MEDS ORDERED: MARINOL2.5 M1 PO (09:30)
--- NOTE | 2018-10-26 09:43 | NUR ---
SPOKE WITH DR. PARIKH ADVISED OF DISCHARGE AND MEDICAL MEDS NEEDING COMPLETED. NO FURTHER ORDERS AT THIS TIME.
--- NOTE | 2018-10-26 12:01 | NUR ---
Prior Authorization received from [facility] for transportation for transfer back to [facility]. Auth #[id number]. Consulting Software Engineer time 5:00 p.m. [facility] ambulance.
--- NOTE | 2018-10-26 12:06 | NUR ---
AM GROUP/EXERCISES/GAMES PT ATTENDED AND PARTICIPATED DURING GROUP. PT DID NOT EXPRESS ANY ANXIETY BUT SOME CONFUSION. PT ASKED TO USE BATHROOM ALTHOUGH PT IS CONNECTED CATHETER. PT WILL PREP FOR DISCHARGE FROM UNIT SOMETIME TODAY.
--- NOTE | 2018-10-26 12:10 | NUR ---
SPOKE WITH RE:PT DISCHARGE FOR TODAY AND MEDICAL MEDS NEEDING COMPLETED. NO FURTHER ORDERS AT THIS TIME.
--- NOTE | 2018-10-26 12:38 | NUR ---
PT ALERT TO PERSON, PLACE AND TIME. PT MED COMPLIANT WITHOUT DIFFICUTLY, MED EDUCATION PROVIDED. PT CALM, MOOD IS STABLE. PT DENIES SUICIDAL THOUGHTS AT THIS TIME. PT DENIES HALLUCINATIONS, STATES "SOMETIMES I SEE LITTLE PEOPLE BUT I'M NOT RIGHT NOW". STAGE 4 TO COOCCYX REMAINS, DRESSING CHANGED THIS AM PER WOUND ORDERS, DISCHARGE PHOTOS TAKEN. PT INCONTINENT OF BOWEL, CARE PROVIDED NEEDED. RITTER CATHETER INTACT, DRAINING DARK YELLOW URINE CONTAINING SEDIMENT. PLAN IS TO PERPARE DISCHARGE TO [facility] TODAY.
--- NOTE | 2018-10-26 15:03 | NUR ---
NURSE TO NURSE REPORT GIVEN TO RAUL AT [facility].
--- NOTE | 2018-10-26 16:09 | NUR ---
PM GROUP/LEISURE SKILLS PT ATTENDED AND PARTICIPATED IN GROUP. PT PLEASANT AND EXCITED TO BE DISCHARGED TODAY. PT KEPT ASKING TO LEAVE ACTIVITY'S TO CALL A TAXI AND TO GET HER STUFF READY TO GO. THIS STAFF EXPLAINED THAT THE STAFF WILL LET PT KNOW WHEN TO GET READY TO GO. PT RESPONSIVE TO THIS STAFF AND BACK ON TASK. PT WILL PLAN TO BE DISCHARGED FROM [facility] THIS EVENING.
--- NOTE | 2018-10-26 19:29 | NUR ---
[facility] HERE TO PICK PT UP FOR TRANSPORT TO [facility]. OFF THE FLOOR AT THIS TIME. PT MEDICALLY STABLE AT THIS TIME.
--- NOTE | 2018-10-27 08:25 | NUR ---
OCCUPATIONAL THERAPY CO-SIGN I approve of the Occupational Therapy notes written above. SLIME AMARAL OTR/Dean
--- NOTE | 2018-10-27 11:39 | NUR ---
PHYSICAL THERAPY CO-SIGN I approve of the Phyical Therapy notes written above. NENA KEEN PT
== END 2018-10-26 19:29 | disposition other institution (70) | DRG 885 ==
LOC: 3N 13:26
PROVIDERS: Internal Medicine; Student in an Organized Health Care Education/Training Program; ADMIT Psychiatry & Neurology Psychiatry
DX: F31.5 Bipolar disorder, current episode depressed, severe, with psychotic features (principal); L89.154 Pressure ulcer of sacral region, stage 4; E43 Unspecified severe protein-calorie malnutrition; F23 Brief psychotic disorder; R45.851 Suicidal ideations; I27.82 Chronic pulmonary embolism; Z68.1 Body mass index [BMI] 19.9 or less, adult; D64.9 Anemia, unspecified; R45.850 Homicidal ideations; F03.90 Unspecified dementia, unspecified severity, without behavioral disturbance, psychotic disturbance, mood disturbance, and anxiety; N18.2 Chronic kidney disease, stage 2 (mild); G40.909 Epilepsy, unspecified, not intractable, without status epilepticus; R62.7 Adult failure to thrive; F41.9 Anxiety disorder, unspecified; E55.9 Vitamin D deficiency, unspecified; E78.5 Hyperlipidemia, unspecified; E21.0 Primary hyperparathyroidism; I25.10 Atherosclerotic heart disease of native coronary artery without angina pectoris; Z22.39 Carrier of other specified bacterial diseases; Z86.73 Personal history of transient ischemic attack (TIA), and cerebral infarction without residual deficits; Z93.1 Gastrostomy status; Z82.49 Family history of ischemic heart disease and other diseases of the circulatory system; Z79.899 Other long term (current) drug therapy; Z79.82 Long term (current) use of aspirin

== ENCOUNTER → 2018-11-02 | Day surgery (SDC) | payer MEDICARE ==
[~2018-11-02] VITALS: Ht 160 cm; Wt 46.3 kg
[~2018-11-02] MED LIST changes: +ARIPIPRAZOLE2 MG PO; +B121000 MCG/1 IM; +BENZTROPINE ME0.5 MG PO; +CLOZAPINE100 MG PO; +DULOXETINE HCL60 MG PO; +MARINOL2.5 M1 PO; +RIVASTIGMINE TAR3 M1 PO
--- NOTE | ~2018-11-02 | O ---
[place], [place] OPERATIVE NOTE NAME: ORLY BABCOCK UNIT #: [id number] ROOM: DOCTOR: SIM VILLA MD BIRTHDATE: [birth year] DOS: 11/02/2018 HISTORY OF PRESENT ILLNESS: The patient is a 68-year-old with TIAs, status post PEG tube placement, PEG tube early this morning has fallen out. They have called me from half-way that the patient needs a PEG tube and accommodated. ALLERGIES: No known medication. PAST MEDICAL HISTORY: Bipolar, anxiety, coronary artery disease, dementia, hyperlipidemia, anemia, pulmonary embolism, hyperparathyroidism amongst multiple others and among which severe protein-calorie malnutrition, TIAs. PAST SURGICAL HISTORY: Tonsillectomy and PEG tube in the past. PROCEDURE: Today's procedure part of investigation is panendoscopy plus establish of existing PEG ostomy site plus, no gastrostomy tube Portuguese 20 placement. PREMEDICATION: Propofol. SCOPE: Olympus forward-viewing gastroscope Q10 video. REPORT: After putting the patient in left lateral position and application of lubricant to the scope, the scope was introduced. Thereafter, under direct plus fascia length of esophagus. Diffuse esophageal moniliasis was identified. [place] for fungal study performed. Gastric pouch was entered. The previous ostomy site is collapse. At the appropriate aseptic prep was done externally and with trocar old existing tunnel was reestablished and meticulously a new ____ tube size 20 was introduced without need of new ostomy. Inflated with 15 mL of water, anchors from outside secured, additional straps were added, positions was photographed. A suctioned out. She tolerated the procedure well. IMPRESSION: Esophageal moniliasis, status post brush for fungal study. PLAN AND DISCUSSION: 1. Diflucan 100 mg daily is going to be instituted if his renal status is stable. 2. New G-tube is ready for medication and feedings as were earlier this morning. [place], [place] OPERATIVE NOTE NAME: ORLY BABCOCK UNIT #: [id number] ROOM: DOCTOR: SIM VILLA MD BIRTHDATE: [birth year] NASROLLAH JAHDI, MD CM:OPRECORD:OPERATIVE NOTE 1403 [id number] SIM VILLA MD 11/02/18 1445 interface
[2018-11-02 12:35] VITALS: BP 92/53
[2018-11-02 13:58] VITALS: BP 77/40
[2018-11-02 14:08] VITALS: BP 102/60
[2018-11-02 14:23] VITALS: BP 113/54
== END | disposition home or self-care (01) ==
LOC: SDC 09:36
DX: K94.23 Gastrostomy malfunction (principal); F41.9 Anxiety disorder, unspecified; I25.10 Atherosclerotic heart disease of native coronary artery without angina pectoris; E78.5 Hyperlipidemia, unspecified; B37.81 Candidal esophagitis; N18.3 Chronic kidney disease, stage 3 (moderate); F32.9 Major depressive disorder, single episode, unspecified; F25.9 Schizoaffective disorder, unspecified; Z98.890 Other specified postprocedural states; Z79.899 Other long term (current) drug therapy; Z86.73 Personal history of transient ischemic attack (TIA), and cerebral infarction without residual deficits; Z87.440 Personal history of urinary (tract) infections; Z79.82 Long term (current) use of aspirin; Z82.49 Family history of ischemic heart disease and other diseases of the circulatory system

== ENCOUNTER 2019-06-02 16:07 | Inpatient (IN) | payer MEDICARE ==
[~2019-06-02] VITALS: Ht 167.6 cm; Wt 57.6 kg
--- NOTE | ~2019-06-02 | CON ---
[place], [place] REPORT OF CONSULTATION [facility]ABCOCK [id number] UN[facility] #: [id number] ROOM: 407 DOCTOR: GODFREY PHD BLAYNE BIRTHDATE: [birth year] DOS: 06/03/2019 HISTORY OF PRESENT ILLNESS: The patient is a 68-year-old female referred by the hospitalist due to visual and auditory hallucinations. At the present time, the patient is on the 4th floor at [facility]. She is a resident at [facility]. She presented to the ED with symptoms of diarrhea, hallucinations and weakness. She has been seeing people in her room. She has received inpatient treatment in the past for these issues. She denied alcohol, tobacco and illegal drug use. PAST MEDICAL HISTORY: Anxiety, C. difficile enteritis, coronary artery disease, chronic kidney disease, dementia, failure to thrive, GI bleed, homicidal ideations, hyperlipidemia, major depressive disorder, normocytic anemia, pressure ulcer of sacral region, primary hyperparathyroidism, pulmonary emboli, schizoaffective disorder, severe protein-calorie malnutrition, suicidal ideations, TIA, unspecified conversions, unsteady gait, vitamin D deficiency. MEDICATIONS: Cymbalta, Exelon, Cogentin, Latuda, Geodon, aspirin, B12, Sensipar, Feosol, Cozaar, Ditropan, K-Dur, Eliquis, fluoxetine, Vistaril, Zofran, Tylenol, Ativan, [place] 5/325. PHYSICAL EXAMINATION: The patient was lying comfortably in bed, in no apparent distress. She was awake, alert and oriented to person, place and generally to time. Mood was anxious. Affect was flat. She denied suicidal and homicidal ideation, plan, and intent. She believes that her medications are "enhancing her hallucinations." She is becoming increasingly anxious about the people that she is seeing. She sees people's faces on the floor. She also reports seeing small people in her room. Speech and language appeared within normal limits conversationally. Thought process was goal directed. The patient stated that she would like to go to the [facility] to have her psychiatric medications adjusted. DIAGNOSIS: Schizoaffective, bipolar type. PLAN: I discussed the patient with Dr. Wilson. She is well known to him. She would appear to benefit from treatment [facility] the [facility] and Dr. Wilson has agreed to admit the patient once medically stable. Loly Pillai, PhD CM:CONSTR:REPORT OF CONSULTATION 1724 06/04/19 0212 interface
--- NOTE | ~2019-06-02 | EKG ---
[place], [place] ELECTROCARDIOGRAM REPORT NAME: ORLY BABCOCK UNIT #: [id number] ROOM: 407 DOCTOR: BRAULIO DRAFT REPORT BIRTHDATE: [birth year] [facility] Test Date: 2019-06-02 Test Time: 16:25:35 Pat Name: ORLY BABCOCK Department: Room: 407 Gender: F Athletic Equipment Custodian: : 1950 Requested By: DELFINO QUINN Order Number: [id number] Reading MD: Kem Nunez MD Measurements Intervals [place] Rate: 80 P: 60 DC: 186 QRS: 11 QRSD: 77 T: 39 QT: 372 QTc: 430 Interpretive Statements Sinus rhythm Compared to ECG 05/14/2018 17:29:00 Sinus tachycardia no longer present Electronically Signed On 06-03-2019 8:15:29 PDT by Kem Nunez MD CM:EKGRPT:ELECTROCARDIOGRAM REPORT 1625 0815 DELFINO NOVA DRAFT REPORT DELFINO QUINN DO
[~2019-06-02 16:07] MED LIST changes: +ASPIRIN CHEWABL81 MG PO; +COZAAR50 M1 PO; +FEOSOL325 MG PO; +Ipratropium Brom3 ML INH; +LOXAPINE50 MG PO; +MULTIVITAMINS1 EAC5 PO; +NORCO 5-325 TA1 EACH PO; +PAIN RELIEVER325 MG PO; +VITAMIN B1250 MCG PO; +VITAMIN C500 M8 PO; +ZINC-220220 MG PO; +ZOFRAN4 MG PO
[2019-06-02 16:09] VITALS: BP 111/66
[2019-06-02 16:37] LABS: BASO % 0.3 % (0.0-1.0); EOS # 0.1 10*3/uL (0.0-0.4); EOS % 1.2 % (1.0-4.0); HEMATOCRIT 38.5 % (37.0-47.0); HEMOGLOBIN 12.3 g/dl (12.0-16.0); LYMPH # 2.2 10*3/uL (1.3-4.4); LYMPH % 20.7 % (27.0-41.0); MEAN CELL VOLUME 89.5 fl (81.0-99.0); MEAN CORPUSCULAR HGB 28.6 pg (27.0-31.0); MEAN CORPUSCULAR HGB CONC 31.9 g/dl (33.0-37.0); MEAN PLATELET VOLUME 11.7 fl (9.6-12.3); MONO # 1.1 10*3/uL (0.1-1.0); MONO % 10.7 % (3.0-9.0); NEUT # 7.1 10*3/uL (2.3-7.9); NEUT % 66.7 % (47.0-73.0); PLATELET COUNT AUTOMATED 262 10*3/uL (130-400); RED CELL DISTRI WIDTH 18.4 % (0-14.5); WHITE BLOOD COUNT 10.7 10*3/uL (4.8-10.8)
[2019-06-02 16:52] LABS: ACT PARTIAL THROMBO TIME 22.2 SECONDS (20.0-32.1); INTERNATIONAL NORM RATIO 1.1 (2.0-3.5)
[2019-06-02 16:53] LABS: ALBUMIN 3.4 gm/dl (3.1-4.5); ALKALINE PHOSPHATASE 160 U/L (45-117); BUN 19 mg/dl (7-24); CHLORIDE 110 mmol/L (98-107); CREATININE 0.73 mg/dL (0.55-1.02); LIPASE 76 U/L (73-393); POTASSIUM 4.1 mmol/L (3.5-5.1); SGOT/AST 34 IU/L (3-35); SGPT/ALT 25 U/L (12-78); SODIUM 142 mmol/L (136-145)
[2019-06-02 16:54] LABS: TROPONIN I < 0.015 ng/ml (<0.045)
[2019-06-02 17:00] LABS: BILIRUBIN NEGATIVE (NEGATIVE); BLOOD 2+ (NEGATIVE); CLARITY SL CLOUDY (CLEAR); COLOR YELLOW (YELLOW); GLUCOSE NEGATIVE (NEGATIVE); KETONE NEGATIVE (NEGATIVE); LEUKO ESTERASE 1+ (NEGATIVE); NITRITE NEGATIVE (NEGATIVE); PH 5.5 (5.0-9.0); SPECIFIC GRAVITY 1.015 (1.005-1.030); UROBILINOGEN 0.2 E.U./dl (0.2-1.0)
[2019-06-02 17:18] LABS: BACTERIA 2+; RBC TNTC rbc/hpf (0-2)
[2019-06-02 17:19] LABS: WBC 16-20 wbc/hpf (0-5)
[2019-06-02 20:00] VITALS: BP 117/70
[2019-06-02 20:35] VITALS: BP 117/70
[2019-06-02] MEDS ORDERED: VISTARIL25 MG PO (21:32)
[2019-06-02] MEDS ORDERED: DECARA50000 UNIT PO (21:34)
[2019-06-03] VITALS: BP 99/49
[2019-06-03 06:41] LABS: ALBUMIN 2.8 gm/dl (3.1-4.5); ALKALINE PHOSPHATASE 141 U/L (45-117); BUN 15 mg/dl (7-24); CHLORIDE 112 mmol/L (98-107); CHOLESTEROL 155 mg/dL (<200); CREATININE 0.63 mg/dL (0.55-1.02); HDL CHOLESTEROL 31 mg/dl (40-60); LDL CHOLESTEROL 96 mg/dL (9-159); PHOSPHOROUS 3.5 mg/dL (2.5-4.9); POTASSIUM 3.8 mmol/L (3.5-5.1); SGOT/AST 27 IU/L (3-35); SGPT/ALT 20 U/L (12-78); SODIUM 143 mmol/L (136-145); TOTAL PROTEIN 6.2 gm/dL (6.4-8.2); TRIGLYCERIDES 139 mg/dl (<150); VLDL CHOLESTEROL 28 mg/dL (6-40)
[2019-06-03 07:03] LABS: BASO % 0.3 % (0.0-1.0); EOS # 0.1 10*3/uL (0.0-0.4); EOS % 1.6 % (1.0-4.0); HEMATOCRIT 35.1 % (37.0-47.0); HEMOGLOBIN 11.1 g/dl (12.0-16.0); LYMPH # 1.7 10*3/uL (1.3-4.4); MEAN CELL VOLUME 89.3 fl (81.0-99.0); MEAN CORPUSCULAR HGB 28.2 pg (27.0-31.0); MEAN CORPUSCULAR HGB CONC 31.6 g/dl (33.0-37.0); MEAN PLATELET VOLUME 11.9 fl (9.6-12.3); MONO # 0.9 10*3/uL (0.1-1.0); MONO % 10.6 % (3.0-9.0); NEUT # 5.9 10*3/uL (2.3-7.9); NEUT % 67.2 % (47.0-73.0); PLATELET COUNT AUTOMATED 230 10*3/uL (130-400); RED BLOOD COUNT 3.93 10*6/uL (4.10-5.10); RED CELL DISTRI WIDTH 18.6 % (0-14.5); WHITE BLOOD COUNT 8.7 10*3/uL (4.8-10.8)
[2019-06-03 08:00] VITALS: BP 118/60
[2019-06-03 12:00] VITALS: BP 100/45
[2019-06-03 16:00] VITALS: BP 120/63
[2019-06-03] MEDS ORDERED: ASPIRIN CHEWABL81 MG PO (16:27)
== END 2019-06-03 17:27 | disposition home health service (06) | DRG 689 ==
LOC: ED 16:07 → 4E 18:48 → EDHOLD 18:48 → 4E 20:28
PROVIDERS: Emergency Medicine; Student in an Organized Health Care Education/Training Program; ADMIT Internal Medicine
DX: N39.0 Urinary tract infection, site not specified (principal); G93.41 Metabolic encephalopathy; F31.2 Bipolar disorder, current episode manic severe with psychotic features; R44.0 Auditory hallucinations; F03.91 Unspecified dementia, unspecified severity, with behavioral disturbance; R19.7 Diarrhea, unspecified; R44.1 Visual hallucinations; E87.8 Other disorders of electrolyte and fluid balance, not elsewhere classified; R79.82 Elevated C-reactive protein (CRP); R26.81 Unsteadiness on feet; R32 Unspecified urinary incontinence; R15.9 Full incontinence of feces; I25.10 Atherosclerotic heart disease of native coronary artery without angina pectoris; E21.0 Primary hyperparathyroidism; N18.3 Chronic kidney disease, stage 3 (moderate); E78.5 Hyperlipidemia, unspecified; E55.9 Vitamin D deficiency, unspecified; F41.9 Anxiety disorder, unspecified; Z86.711 Personal history of pulmonary embolism; Z86.73 Personal history of transient ischemic attack (TIA), and cerebral infarction without residual deficits; Z82.49 Family history of ischemic heart disease and other diseases of the circulatory system; Z88.8 Allergy status to other drugs, medicaments and biological substances; Z79.82 Long term (current) use of aspirin; Z79.899 Other long term (current) drug therapy

== ENCOUNTER 2019-06-03 15:50 | Inpatient (IN) | payer MEDICARE ==
[~2019-06-03] VITALS: Ht 167.6 cm; Wt 60.3 kg
[~2019-06-03 15:50] MED LIST changes: +DECARA50000 UNIT PO; +VISTARIL25 MG PO
[2019-06-03] MEDS ORDERED: ASPIRIN CHEWABL81 MG PO (16:27)
[2019-06-03 17:38] VITALS: BP 112/66
[2019-06-03 17:59] VITALS: BP 112/66
--- NOTE | 2019-06-03 18:09 | NUR ---
SPOKE WITH DR YOUNGER RE:MEDICAL MANAGEMENT CONSULT NEEDED
--- NOTE | 2019-06-03 18:15 | NUR ---
ORLY BABCOCK a 68 year old F admitted via wheel chair from the 4TH FLOOR as a emergency 72 hr. hold admission. Arrived on unit at 1732 . ALLERGIES: BENADRYL . Vital signs are: 98.4-76-16 112/66. The client signed the following forms with stated understanding: Authorization For The Release of Medical Information, Clothing List, Consent and Release Forms/Receipt of Rights, Acknowledgement of Advance Directive Information, Behavioral Health Consent Form, and Informed Consent of Medications. [facility] the [facility] A search was conducted and hazardous articles were removed. Client was oriented to the unit. ARMANI HORTON
--- NOTE | 2019-06-03 18:17 | NUR ---
PT REFUSED WOUND PICTURES, WHEN EXPLAINED AND EDUCATED ON REASON FOR PICTURES PT STATED "NO NOT REALLY". WOUND MEASUREMENTS TAKEN FROM 4TH FLOOR ASSESSMENT. PT ALERT TO [place], PLACE AND TIME. PT DENIES AUDITORY HALLUCINATIONS AT THIS TIME, STATES SHE IS SEEING LITTLE PEOPLE IN THE ROOM DURING ASSESSMENTS. PT DENEIS ANY SUICIDAL THOUGTHS. PT UP TO WHEELCHAIR, REQUIRES 1-2 STAFF ASSIST FOR TRANSFERS. PT CONTINENT OF BOWEL AND BLADDER, EPISODES OF INCONTINENCE NOTED, CARE PROVIDED NEEDED.
[2019-06-03 20:06] VITALS: BP 132/74
--- NOTE | 2019-06-04 02:19 | NUR ---
24 HR chart check completed.
--- NOTE | 2019-06-04 05:21 | NUR ---
Patient slept approx. 8 hours throughout shift. Q 15 minute safety checks continued and maintained.
[2019-06-04 06:38] LABS: BASO # 0.1 10*3/uL (0.0-0.1); BASO % 0.4 % (0.0-1.0); EOS # 0.2 10*3/uL (0.0-0.4); EOS % 1.3 % (1.0-4.0); HEMATOCRIT 42.2 % (37.0-47.0); LYMPH # 1.8 10*3/uL (1.3-4.4); LYMPH % 14.2 % (27.0-41.0); MEAN CELL VOLUME 91.1 fl (81.0-99.0); MEAN CORPUSCULAR HGB 28.1 pg (27.0-31.0); MEAN CORPUSCULAR HGB CONC 30.8 g/dl (33.0-37.0); MEAN PLATELET VOLUME 11.6 fl (9.6-12.3); MONO # 1.3 10*3/uL (0.1-1.0); MONO % 9.8 % (3.0-9.0); NEUT # 9.4 10*3/uL (2.3-7.9); NEUT % 73.9 % (47.0-73.0); PLATELET COUNT AUTOMATED 269 10*3/uL (130-400); RED BLOOD COUNT 4.63 10*6/uL (4.10-5.10); RED CELL DISTRI WIDTH 18.9 % (0-14.5); WHITE BLOOD COUNT 12.8 10*3/uL (4.8-10.8)
[2019-06-04 07:21] LABS: CHLORIDE 110 mmol/L (98-107); POTASSIUM 4.4 mmol/L (3.5-5.1); SODIUM 143 mmol/L (136-145)
[2019-06-04 07:38] LABS: ALBUMIN 3.6 gm/dl (3.1-4.5); ALKALINE PHOSPHATASE 174 U/L (45-117); BUN 12 mg/dl (7-24); CHOLESTEROL 180 mg/dL (<200); CREATININE 0.74 mg/dL (0.55-1.02); HDL CHOLESTEROL 35 mg/dl (40-60); LDL CHOLESTEROL 114 mg/dL (9-159); SGOT/AST 23 IU/L (3-35); SGPT/ALT 23 U/L (12-78); TOTAL PROTEIN 7.5 gm/dL (6.4-8.2); TRIGLYCERIDES 153 mg/dl (<150); VLDL CHOLESTEROL 31 mg/dL (6-40)
[2019-06-04 07:58] LABS: VITAMIN D, 25-HYDROXY 38.4 ng/mL (30-100)
[2019-06-04 08:22] VITALS: BP 124/71
--- NOTE | 2019-06-04 08:30 | NUR ---
Treatment Plan meeting with Dr. Wilson, RN, AT, and Freight Inspector. Plan for dischare Next week. Pt. came to [facility] from [facility].
--- NOTE | 2019-06-04 08:47 | NUR ---
Spoke with Romelia at [facility]. Pt. is a Jail Care Resident and will return at discharge. Pt. Also resides at facility. Clinical Updates faxed to [facility].
--- NOTE | 2019-06-04 10:40 | NUR ---
DR. AGUILAR ON FLOOR TO ASSESS PT, UPDATE PROVIDED.
--- NOTE | 2019-06-04 12:39 | NUR ---
SADIQORLY Deysi [id number] Please refer to the physician's history and physical for past medical history, comorbid conditions, and allergies. Diagnosis: SCHIZOAFFECTIVE DISORDER Ata Score: 18,LOW OR NO RISK WOUND DESCRIPTIONS: Wound Number: 1 Location of the wound: coccyx Type of wound: unstageable Thickness: Full Size: 1.5cm x 1.5cm x 0.3cm Tunneling: none Undermining: none Sinus Tract: none Presence of Exudate:none Amount: None Color: Yellow, red Odor: None Periwound Skin Appearance: Normal Wound edges: approximated Pain (associated with wound): none at time of assessment How does patient state this happened? pt stated she has hda this for about 1 year and get wound care at [facility] Surface the patient is resting on: Proform SKIN PREVENTION RECOMMENDATION: 1. Pressure redistribution support surface as appropriate 2. Elevate heels 3. Remove boots/TEDS every shift and reapply 4. Head of bed 30 degrees as tolerated 5. Assess nutrition and hydration 6. Manage moisture 7. Avoid the use of containment devices while in bed 8. Use absorptive products on surfaces limit layers of linens on bed 9. Turn and reposition every 1-2 hours in bed and every 1 hour in chair as tolerated 10. Weight shifts every 15 minutes while up in chair 11. Offloading with pillows or device to keep heels elevated off bed 12. Monitor skin at least every shift 13. Inspect under medical devices twice a day WOUND TREATMENT RECOMMENDATIONS: Wheelchair cushion when oob. Full thickness guidelines: Cleanse coccyx with nss and apply sureprep around the wound therahoney to wound bed and cover with optifoam gentle.
--- NOTE | 2019-06-04 12:45 | NUR ---
Shift chart check completed.
--- NOTE | 2019-06-04 13:53 | NUR ---
Patient unavailable for Occupational Therapy eval at this time due to meeting with case management followed by participation in group session. Will attempt OT eval at a later date. Kalpana Bowie S/OT Sonia Rodarte OTR/l
--- NOTE | 2019-06-04 13:53 | NUR ---
PHYSICAL THERAPY Physical therapy evaluation attempted. Patient was with case management and then group session. Will attempt PT evaluation at a later time/date. Thank you Delaney Werner, SPT Leanna Howell,PT,DPT
--- NOTE | 2019-06-04 14:06 | NUR ---
Dr. Harrison notified of wound care recommendations.
--- NOTE | 2019-06-04 14:43 | NUR ---
During assessment, pt shared that her , with whom pt resides in the , is wanting a divorce. Pt states that they have been for 16 years. Pt gave permission for this film writer to speak with pt's . Attempted to reach Aba Israel by phone. Left a voicemail message for him requesting a return call. This film writer is unsure if this is a delusion that pt is experiencing or that pt's does in fact want a divorce. Pt stated that she is wanting the relationship with her to improve and that she is not wanting a divorce. Will await a return call.
--- NOTE | 2019-06-04 15:31 | NUR ---
PM GROUP PT WAS PRESENT FOR AFTERNOON GROUP THERAPY BUT DECLINED ANY ACTIVITY OFFERED. PT SAT AT TABLE WITH PEERS, LISTENED TO MUSIC AND SOCIALIZED. PT EXPRESSED NO HALLUCINATIONS WHILE IN GROUP
--- NOTE | 2019-06-04 18:17 | NUR ---
PT COOPERATIVE MEDICATION COMPLIANT TODAY, SMILES WHEN SPOKEN TO, PROPELS SELF SHORT DISTANCES DOWN THE HALLWAY, 1 ASSIST FOR TRANSFERS AND PERMITTED WOUND CARE NURSE TO ASSESS AREA TO BUTTOCKS. NO DELUSIONS NOTED, CONTINUE TO MOINTOR 15 MIN CHECKS
[2019-06-04 20:00] VITALS: BP 102/72
--- NOTE | 2019-06-04 22:50 | NUR ---
Patient alert and oriented. Patient pleasant and cooperative. Patient compliant with medications without any difficulty. No signs of any hallucinations noted at this time. Patient isolative to room this evening. Plan to continue to encourage medication compliance and encourage interaction with staff and other patients. See [facility] flowsheet for further documentation.
--- NOTE | 2019-06-05 00:50 | NUR ---
24 HR chart check completed.
--- NOTE | 2019-06-05 05:25 | NUR ---
Patient slept approx. 4 hours throughout shift. Q 15 minute safety checks continued and maintained.
[2019-06-05 08:22] VITALS: BP 122/62
--- NOTE | 2019-06-05 10:20 | NUR ---
SYLVIE LI CNP ON UNIT TO ASSESS PATIENT.
--- NOTE | 2019-06-05 11:47 | NUR ---
AM/EXERCISE/BINGO PT ATTENDED AND PARTICIPATED IN ALL GROUP ACTIVITY'S. PT QUIET AT THIS TIME BUT DID NOT EXPRESS ANY HALLUCINATIONS. PT WILL CONTINUE TO ATTEND AND PARTICIPATE IN FUTURE RGOUP SESSIONS.
--- NOTE | 2019-06-05 15:54 | NUR ---
PM/REMINISCE PT RESTING AT THIS TIME THEREFORE PT CHOSE NOT TO ATTEND. PT WILL CONTINEU TO BE ENCOURAGED TO ATTEND AN DPARTICIPATE TO BEST OF PT ABILITY.
--- NOTE | 2019-06-05 16:16 | NUR ---
Shift chart check completed.
--- NOTE | 2019-06-05 16:52 | NUR ---
PATIENT IS ALERT AND ORIENT TO PERSON, PLACE, TIME AND SITUATION; ABLE TO VOICE NEEDS. MOOD IS DEPRESSED. DENIES ANY HALLUCINATIONS, DELUSIONS, HI/SI OR PAIN. MEDICATION COMPLIANT WITH EDUCATION PROVIDED. Q 15 MINUTE SAFETY CHECKS MAINTAINED. INTERACTIVE WITH STAFF AND PARTICIPATED IN GROUP SESSION. 1 PERSON ASSIST WITH ACTIVITIES OF DAILY LIVING, CONTINENT OF BOWEL AND BLADDER. SET UP FOR MEALS, INTAKES ARE GOOD WITH ADEQUATE FLUIDS. CONTINUE TO MONITOR FOR HALLUCINATIONS AND DELUSIONS; PROVIDE ONE ON ONE, REDIRECTION/ORINTATION NEEDED.
[2019-06-05 19:59] VITALS: BP 118/60
--- NOTE | 2019-06-05 21:52 | NUR ---
INTERACTIVE WITH STAFF AND PEERS EARLIER IN SHIFT.. DID GO TO BED BUT WAS AWAKE FOR MEDICATION. ALL QUESTIONS ANSWERED ON MEDS. DENIES VISUAL/AUDIO HALLUCINATIONS THIS EVENING. WILL CONTINUE TO MONITOR FOR CHANGES IN MOOD/BEHAVIOR.
--- NOTE | 2019-06-06 04:14 | NUR ---
24 HR chart check completed.
--- NOTE | 2019-06-06 06:02 | NUR ---
SLEPT 8 HOURS UNINTERUPTED.
[2019-06-06 07:47] VITALS: BP 101/58
--- NOTE | 2019-06-06 08:35 | NUR ---
JONATHON BALL POINTS INSPECTOR ON UNIT TO SEE PT AT THIS TIME.
--- NOTE | 2019-06-06 16:41 | NUR ---
NO ADVERSE MOODS OR BEHAVIORS NOTED. PT A&O X3. NO DELUSIONS NOTED. NO SI/HI NOTED. FALL AND SEIZURE PRECAUTIONS MAINTAINED. Q15 MINUTE SAFETY CHECKS MAINTAINED. MEDICATION COMPLIANT. MEDICATION EDUCATION PROVIDED. MAYUR CARE PROVIDED WHEN NEEDED. CONTINENT THIS SHIFT. WILL CONTINUE TO MONITOR BEHAVIORS WITH Q15 MINUTE SAFETY CHECKS.
[2019-06-06 20:16] VITALS: BP 103/66
--- NOTE | 2019-06-06 21:27 | NUR ---
INTERACTIVE WITH PEERS. REVIEWED MEDICATIONS DURING MED PASS. DENIES ANY DELUSIONS OR HALLUCINATIONS THIS EVENING. REMAINS QUIET AND TO HERSELF MOST OF THE TIME BUT WILL INTERACT IF SHE IS QUESTIONED. WILL CONTINUE TO MONITOR FOR SAFETY, MOOD/BEHAVIOR.
--- NOTE | 2019-06-07 04:17 | NUR ---
24 HR chart check completed.
--- NOTE | 2019-06-07 06:14 | NUR ---
SLEPT WELL PAST 2129
[2019-06-07 07:49] VITALS: BP 117/62
--- NOTE | 2019-06-07 08:30 | NUR ---
Treatment Plan meeting with Dr. Wilson, RN, AT, SW and Electrical Engineering Drafting Officer. Plan for discharge at the end of the week. Pt. will return to [facility].
--- NOTE | 2019-06-07 09:30 | NUR ---
SYLVIE LI ON UNIT TO ASSESS PT
--- NOTE | 2019-06-07 11:59 | NUR ---
AM GROUP/EXERCISE AND BRAIN GAMES PT ATTENDED AND PARTICIPATED IN ALL GROUP ACTIVITIES. PT EXPRESSED NO HALLUCINATIONS WHILE IN GROUP
--- NOTE | 2019-06-07 12:40 | NUR ---
Clinical Updates faxed to [facility] Attn:
--- NOTE | 2019-06-07 13:29 | NUR ---
Spoke with Romelia from [facility]. Advised of plans to discharge at the end of the week. Clinical Updates faxed to facility.
--- NOTE | 2019-06-07 14:10 | NUR ---
Patient not available for Occupational Therapy evaluation as she in group therapy session. Sonia Rodarte OTR/L
--- NOTE | 2019-06-07 14:10 | NUR ---
PHYSICAL THERAPY Physical therapy evaluation attempted. Patient in group session at this time. Will try PT evaluation again at a later time/date. Thank you. Leanna Howell,PT,DPT.
--- NOTE | 2019-06-07 14:54 | NUR ---
Spoke with director of social work Roro at [facility] who confirmed that pt's is not wanting a divorce. Roro stated that this is a delusion of the pt's.
--- NOTE | 2019-06-07 15:35 | NUR ---
PM GROUP/LEISURE INTERESTS PT ATTENDED AFTERNOON GROUP THERAPY AND PARTICIPATED BY WORKING ON A WORDSEARCH. PT EXPRESSED NO HALLUCINATIONS WHILE IN GROUP. PT LEFT GROUP EARLY TO GO LAY DOWN.
--- NOTE | 2019-06-07 17:24 | NUR ---
PT CURRENTLY SITTING IN DINING ROOM EATING DINNER WITH PEERS. ALERT AND ORIENTED X3. DENIES HALLUCINATIONS. NO S/S OF INTERACTING WITH INTERNAL STIMULI. NO DELUSIONAL THOUGHT PROCESS NOTED. NO S/S OF DISTRESS NOTED. RESPS EVEN AND UNLABORED ON ROOM AIR. PT REMAINS ISOLATIVE TO SELF, WILL TALK TO PEERS/STAFF IF TALK TO FIRST. MOOD PLEASANT. UTILIZE WHEELCHAIR DUE TO UNSTEADY GAIT, ONE ASSIST PROVIDED WITH TRANSFERING/CARE. FALLING STAR PROGRAM IN PLACE. SEIZURE PRECAUTIONS IN PLACE. Q15 MINUTE CHECKS MAINTAINED FOR SAFETY.
--- NOTE | 2019-06-07 17:48 | NUR ---
Shift chart check completed.
[2019-06-07 19:43] VITALS: BP 115/65
--- NOTE | 2019-06-07 21:17 | NUR ---
NO ADVERSE MOODS OR BEHAVIORS NOTED THIS SHIFT. PT ALERT AND ORIENTED X3. DENIES HALLUCINATIONS, SI/HI OR PAIN. NO S/S OF INTERACTING WITH INTERNAL STIMULI. NO DELSIONAL THOUGHT PROCESS NOTED. NO S/S OF DISTRESS NOTED. RESPS EVEN AND UNLABORED ON ROOM AIR. MOOD PLEASANT. INTERACTIVE WITH PEERS AND STAFF. MEDICATION COMPLIANT WITH EDUCATION PROVIDED ON EACH. PT UTILIZE WHEELCHAIR DUE TO UNSTEADY GAIT. MAKES NEEDS KNOWN. ONE ASSIST WITH TRANSFERING AND CARE DUE TO UNSTEADY GAIT. FALLING STAR PROGRAM IN PLACE. SEIZURE PRECAUTIONS IN PLACE DUE TO HISTORY. Q15 MINUTE CHECKS MAINTAINED FOR SAFETY.
--- NOTE | 2019-06-07 21:52 | NUR ---
24 HR chart check completed.
--- NOTE | 2019-06-08 05:33 | NUR ---
PATIENT MONITORED ON Q15 MINUTE SAFETY CHECKS THROUGHTOUT THE NIGHT. PATIENT NOTED TO HAVE SLEPT APPROXIMATELY 8 HOURS UNINTERRUPTED.
[2019-06-08 08:29] VITALS: BP 104/62
--- NOTE | 2019-06-08 08:30 | NUR ---
Treatment Plan meeting with Dr. Wilson, RN, AT, and Community Organization Director. Plan for discharge Friday. Pt. will return to [facility] at discharge.
--- NOTE | 2019-06-08 10:00 | NUR ---
SYLVIE LI ELECTRICAL INSTRUMENT MAKER ON UNIT TO ASSESS PT, UPDATE PROVIDED.
--- NOTE | 2019-06-08 11:52 | NUR ---
AM GROUP PT ATTENDED AND PARTICIPATED IN ALL GROUP ACTIVITIES. PT WAS QUIET AND ON TASK. PT EXPRESSED NO VISUAL HALLUCINATIONS WHILE IN GROUP
--- NOTE | 2019-06-08 11:56 | NUR ---
NO ADVERSE MOODDS OR BEHAVIORS NOTED THIS SHIFT. PT ALERT TO PERSON, PLACE AND TIME. PT MED COMPLIANT WITHOUT DIFFICULTY, MED EDUCATION PROVIDED. PT CALM, MOOD IS DEPRESSED. PT DENIES ANY SUICIADL THOUGHTS. PT DENIES ANY HALLUCINATIONS OR DELSUISON, NO OVERT S/S NOTED. PT INTERACTIVE WITH STAFF AND PEERS. PT UP TO WHEELCHAIR, REQUIRES 1 STAFF ASSSIT FOR TRANSFERS AND CARE. PT CONTINENT OF BOWEL AND BLADDDER, EPISODES OF INCONTINENCE NOTED, CARE PROVIDED NEEDED. PLAN IS TO MONITOR PT BEHAVIORS ON Q15 MIN SAFETY CHECKS, PROVIDE EMOTIONAL SUPPORT AND 1:1 FOR PT TO VOICE FEELINGS, ENCOURAGE MED COMPLIANCE AND PROVIDE MED EDUCATION, ENCOURAGE GROUP PARTICIPATION AND SOCIALIZATION.
--- NOTE | 2019-06-08 14:40 | NUR ---
PHYSICAL THERAPY Patient in group session at this time. Will attempt PT evaluation at a later date. Thank you. Leanna Howell,PT,DPT.
--- NOTE | 2019-06-08 14:40 | NUR ---
Patient not available for Occupational Therapy as she is in group session. Sonia Rodarte OTR/l
--- NOTE | 2019-06-08 15:30 | NUR ---
PM GROUP/ART AND MUSIC PT ATTENDED AND PARTICIPATED IN AFTERNOON GROUP THERAPY BY WORKING ON A WATERCOLOR PAINTING. PT WAS QUIET AND ON TASK. PT EXPRESSED NO VISUAL HALLUCINATIONS WHILE IN GROUP
--- NOTE | 2019-06-08 15:38 | NUR ---
Spoke with Roro at [facility] and shared that pt is wanting counseling when returning to . Roro stated that pt could be transported to see Miya CUMMINS at [facility].
[2019-06-08 19:19] VITALS: BP 110/73
--- NOTE | 2019-06-08 20:36 | NUR ---
EVENING/RELAXTION/REMINISCE PT ATTENDED AND PARTICIPATED IN GROUP. PT PLEASANT AND ON TASK AT THIS TIME WITH NO HALLUCINATIONS EXPRESSED. PT WILL CONTINUE TO ATTEND AN DPARTICIPATE TO BEST OF ABILITY IN FUTURE GROUP SESSIONS.
--- NOTE | 2019-06-09 00:46 | NUR ---
APPEARS TYLENOL EFFECTIVE FOR HEAD AND NECK PAIN
--- NOTE | 2019-06-09 00:48 | NUR ---
INTERACTIVE WITH PEERS. DENIES ANY ISSUES AT THIS TIME. DENIES HALLUCINATIONS TONIGHT
--- NOTE | 2019-06-09 04:13 | NUR ---
24 HR chart check completed.
--- NOTE | 2019-06-09 05:34 | NUR ---
Upon discharge recommend patient to follow up for wound care in outpatient setting continue current wound care orders at discharging facility.
--- NOTE | 2019-06-09 05:54 | NUR ---
SLEPT WELL PAST 2200PM WITH MINIMAL AWAKENINGS. MOVES SELF WELL AROUND IN BED
[2019-06-09 08:03] VITALS: BP 103/65
--- NOTE | 2019-06-09 08:15 | NUR ---
Occupational Therapy evaluation completed on3 with full eval to follow. Precautions include fall risk, 3N unit precautions, impaired cognition, w/c use, both knee flexion contractures, moderate complexity level 52750 via chair review, testing and evaluation. Recommend OT per POC and return to [facility]term upon d/c. Thank you. Sonia Rodarte OTR/l
--- NOTE | 2019-06-09 08:30 | NUR ---
Treatment Plan meeting with Dr. Wilson, RN, AT, and Cashiers Supervisor. Plan for discharge Friday. Pt. will return to [facility].
--- NOTE | 2019-06-09 08:52 | NUR ---
PHYSICAL THERAPY Physical therapy evaluation completed. Full details and evaluation to follow. Moderate complexity evaluation performed (02432). PT will work on transfers, strength, safety, and locomotion per POC. Recommend return to [facility] upon discharge. Thank you, Delaney Werner, SPT Leanna Howell,PT,DPT
--- NOTE | 2019-06-09 11:11 | NUR ---
PHYSICAL THERAPY Physical therapy evaluation completed. Full details and evaluation to follow. Moderate complexity evaluation performed (83890). PT will work on transfers, strength, safety, and locomotion per POC. Recommend return to [facility] upon discharge. Thank you, Delaney Werner, SPT Leanna Howell,PT,DPT
--- NOTE | 2019-06-09 11:46 | NUR ---
AM GROUP PT ATTENDED AND PARTICIPATED IN MORNING GROUP THERAPY. PT WAS QUIET AND ON TASK. PT EXPRESSED NO HALLUCINATIONS WHILE IN GROUP.
--- NOTE | 2019-06-09 15:33 | NUR ---
PM GROUP/SOCIALIZING PT ATTENDED AND PARTICIPATED IN AFTERNOON GROUP THERAPY BY SITTING AT A TABLE WITH PEERS TALKING AND WORKING A WORDSEARCH. PT EXPRESSED NO HALLUCINATIONS WHILE IN GROUP
--- NOTE | 2019-06-09 16:45 | NUR ---
NO ADVERSE MOODS OR BEHAVIORS NOTED THIS SHIFT. PT ALERT TO PERSON, PLACE AND TIME. PT MED COMPLIANT WITHOUT DIFFICULTY, MED EDUCATION PROVIDED. PT CALM, MOOD IS STABLE. PT DENIES ANY HALLUCIANTIONS OR DELUSIONS NOTED. PT QUIET, LESS INTERACTIVE WITH STAFF AND PEERS. PT UP TO WHEELCHAIR UP TO WHEELCHAIR, REQUIRES 1 STAFF ASSIST FOR TRANSFERS AND CARE. PT CONTINENT OF BOWEL AND BLADDER, EPISODES OF INCONTINENCE NOTED, CARE PROVIDED NEEDED. PLAN IS TO PROVIDE EMOTIONAL SUPPORT AND 1:1 FOR PT TO VOICE FEELINGS, MONITOR PT BEHAVIORS ON Q15 MIN SAFETY CHECKS, ENOCURAGE MED COMPLIANCE.
[2019-06-09 19:23] VITALS: BP 101/68
--- NOTE | 2019-06-09 21:26 | NUR ---
NOT INTERACTIVE TONIGHT. TO BED EARLY AFTER SNACK. REVIEWED MEDICATIONS AND GIVEN IN APPLESAUCE PER HER REQUEST THEN SHE WANTED IT IN PUDDING. MUCH ENCOURAGEMENT NEEDED FOR HER TO TAKE HER MEDICATIONS. WILL MONITOR FOR CHANGES IN MOOD AND BEHAVIOR
--- NOTE | 2019-06-10 00:57 | NUR ---
24 HR chart check completed.
--- NOTE | 2019-06-10 05:56 | NUR ---
SLEPT APPROX 6 HOURS
--- NOTE | 2019-06-10 07:00 | NUR ---
PHYSICAL THERAPY Patient seen this am for therapy visit and was sitting in activity room w/c at table upon therapist arrival. OT drafter assistant was present for observation only during REGRIND MILL OPERATOR visit as patient voices no new c/o's. Patient presented with increased B knee flexion contracture and tolerated B LE PROM to promote increased B knee extension. Patient peformed multiple sit to stand transfers at rail in hallway, MIN A, tolerating < 1 minute static stand each trial. Patient ambulated 20'x 1, MIN/SUPERVISOR DISPLAY FABRICATION, plus single handrail support with w/c follow , demonstrating Poor upright posture, decreased stride and quick onset of fatigue. Patient stated it felt good to walk and was pleased with her total distance this session. Patient returned to activity room in w/c and remained under [facility] staff Supervision awaiting breakfast. Will continue per POC as tolerated, total treatment time 14 minutes. Jarrod Carlson, REGRIND MILL OPERATOR
--- NOTE | 2019-06-10 07:30 | NUR ---
OT NOTE Pt was seen this A.M. 1:1 for 15 minute OT session with FACULTY ADMINISTRATOR and nursing staff present for observation only. Upon arrival pt was sitting upright in her w/c in the dining room. Pt identified by name and and had no complaints at this time. Pt was taken to her room where she completed sit to stand from chair level with Henrik and use of w/w for UE support. Functional mobility completed into the bathroom with Henrik for walker navigation and verbal prompts for correcting her posture. Pt transferred on/off standard commode with Henrik due to poor safety alignment with commode and rising off low surface. Clothing management completed with maxA due to having LOB backwards while standing without UE support. Educated pt on technique of dressing with one hand while maintaining hold on walker with her other hand and pt reported "fear of falling if I do that." Toilet hygiene completed with supervision while seated. Pt then stood sink side while washing her hands with modA to maintain upright posture. Functional mobility completed back to the w/c with Henrik and use of w/w. Pt was left sitting upright in the w/c in the dining room under [facility] staff supervision. Continue with rec D/C plan to plan to return to [facility]. MATT Zapata/Dean
[2019-06-10 07:40] VITALS: BP 119/62
--- NOTE | 2019-06-10 08:30 | NUR ---
Treatment Plan meeting held this a.m. with Dr. Wilson, RN, AT, SW and Boots And Shoes Supervisor in attendance. Plan for discharge Friday. Pt. will return to [facility].
--- NOTE | 2019-06-10 11:44 | NUR ---
AM GROUP/EXERCISE PT ATTENDED MORNING GROUP THERAPY AND PARTICIPATED IN THE EXERCISES WELL WORKED ON A WORDSEARCH. PT EXPRESSED NO DELUSIONS OR HALLUCINTATIONS WHILE IN GROUP.
--- NOTE | 2019-06-10 12:52 | NUR ---
PATIENT IS ALERT TO PERSON AND PLACE WITH SLIGHT CONFUSION; MOOD IS STABLE. DENIES ANY HALLUCINATIONS, DELUSIONS, HI/SI OR PAIN. 1 PERSON ASSIST WITH ACTIVITIES OF DAILY LIVING, CONTINENT OF BOWEL AND BLADDER. SET UP FOR MEALS, INTAKES ARE GOOD WITH ADEQUATE FLUIDS. MEDICAITON COMPLIANT. Q 15 MINUTE SAFETY CHECKS. PARTICIPATES IN GROUP SESSION, SOCIALIZES WITH OTHER PATIENT. INTERACTIVE WITH STAFF. SELF PROPELS IN WHEELCHAIR. CONTINUE TO MONITOR FOR HALLUCINATIONS AND DELUSIONS. PROVIDE ONE ON ONE AND REDIRECTION NEEDED.
--- NOTE | 2019-06-10 14:50 | NUR ---
Secured appointment for counseling follow up with Lorna Pillai 06/16/19 11:00 a.m.
--- NOTE | 2019-06-10 15:04 | NUR ---
Pt was primarily quiet as she worked on a word search puzzle during the afternoon group activity. She did voice a few comments about topics that another pt was discussing. No delusional content was noted.
--- NOTE | 2019-06-10 15:35 | NUR ---
PM GROUP/ART AND MUSIC PT ATTENDED AND PARTICIPATED IN ALL GROUP ACTIVITIES. PT WAS QUIET AND ON TASK. PT EXPRESSED NO DELUSIONS OR HALLUCINATIONS WHILE IN GROUP
--- NOTE | 2019-06-10 15:59 | NUR ---
DR. YODER AND DR. MATTHEWS UNIT TO SEE PATIENT.
--- NOTE | 2019-06-10 16:31 | NUR ---
Shift chart check completed.
[2019-06-10 19:12] VITALS: BP 107/75
--- NOTE | 2019-06-10 21:40 | NUR ---
Patient alert and oriented. Patient pleasant and cooperative. Patient compliant with medications without any difficulty. No signs of any hallucinations noted at this time. Patient isolative to room this evening. Provided 1:1 for emotional support and to vent thoughts. Patient refused. Plan to continue to encourage medication compliance and encourage interaction with staff and other patients. Also plan to continue to provide emotional support. Q 15 minute safety checks continued and maintained. See [facility] flowsheet for further documentation.
--- NOTE | 2019-06-11 00:11 | NUR ---
24 HR chart check completed.
--- NOTE | 2019-06-11 05:14 | NUR ---
Patient slept approx. 6 hours throughout shift. Q 15 minute safety checks continued and maintained.
--- NOTE | 2019-06-11 06:04 | NUR ---
ORLY BACBOCK [id number] Please refer to the physician's history and physical for past medical history, comorbid conditions, and allergies. Diagnosis: SCHIZOAFFECTIVE DISORDER Ata Score: 18,LOW OR NO RISK WOUND DESCRIPTIONS: ( REVISIT ) Wound Number: 1 Location of the wound: coccyx Type of wound: unstageable Thickness: Full Size: 1.0cm x 2.0cm x 0.3cm Tunneling: none Undermining: none Sinus Tract: none Presence of Exudate: none Amount: None Color: Yellow, red Odor: None Periwound Skin Appearance: Normal Wound edges: approximated Pain (associated with wound): none at time of assessment How does patient state this happened? pt stated she has hda this for about 1 year and get wound care at [facility] the patient is resting on: Proform SKIN PREVENTION RECOMMENDATION: 1. Pressure redistribution support surface as appropriate 2. Elevate heels 3. Remove boots/TEDS every shift and reapply 4. Head of bed 30 degrees as tolerated 5. Assess nutrition and hydration 6. Manage moisture 7. Avoid the use of containment devices while in bed 8. Use absorptive products on surfaces limit layers of linens on bed 9. Turn and reposition every 1-2 hours in bed and every 1 hour in chair as tolerated 10. Weight shifts every 15 minutes while up in chair 11. Offloading with pillows or device to keep heels elevated off bed 12. Monitor skin at least every shift 13. Inspect under medical devices twice a day WOUND TREATMENT RECOMMENDATIONS: Continue full thickness guidelines and wheelchair cushion at this time.
--- NOTE | 2019-06-11 07:10 | NUR ---
PHYSICAL THERAPY Patient was seen this am for therapy visit and was supine in bed upon therapist arrival. Female PT assisted living assistant was also present for observation only during treatment this morning as patient voiced no new c/o's. Patient transfers supine to sit EOB with Min A, tolerating static EOB sit x several minutes to collect herself. Patient also tolerated PROM to B LE's to improve ROM, secondary to B knee flexion contractures, prior to completing sit to stand transfer with MIN A x 1. Patient ambulates with use of wh walker, 25'x 1, Min A to hallway, demonstrating Poor upright posture, decreased stride and Poor walker safety / navigation. Patient has increased difficulty with all 90/180 turns, requiring v/c to improve safe step sequence and proper hand placement prior to sitting down. Patient fatigues quickly and needed seated rest break before completing seated B LE therex, all planes, x 20 reps each to improve LE strength. Patient remained in w/c at table in activity room under [facility] staff Supervision. Will continue per POC as tolerated, total treatment time 24 minutes. Jarrod Carlson, TUMOR REGISTRAR
[2019-06-11 07:37] VITALS: BP 134/86
--- NOTE | 2019-06-11 08:11 | NUR ---
SYLVIE LI CNP NOTIFIED OF PT'S DISCHARGE PLAN TODAY.
--- NOTE | 2019-06-11 08:30 | NUR ---
Patient resting quietly with no c/o discomfort. Respirations easy and regular. Vital signs stable. No overt distress. DR. CROCKETT ON UNIT AT THIS TIME TO ASSES PT. REPORT GIVEN. JULIO HARPER
--- NOTE | 2019-06-11 08:30 | NUR ---
Treatment Plan meeting with Dr. Wilson, RN, AT, and Accounting Generalist. Plan for discharge today. Pt. to return to [facility]. Transportation has been arranged with facility to provide transportation with oyster picker time 3:00 p.m. Pt. has been scheduled for counseling appointment with Lorna Pillai 06/16/19 11:00 a.m. Facility notified of scheduled appointment, spoke with
[2019-06-11] MEDS ORDERED: NORCO 5-325 TA1 EACH PO (08:31)
[2019-06-11] MEDS ORDERED: MIRTAZAPINE30 M2 PO (08:51)
[2019-06-11] MEDS ORDERED: LATU80TA PO (08:51)
[2019-06-11] MEDS ORDERED: BENZTROPINE ME0.5 MG PO (08:51)
[2019-06-11] MEDS ORDERED: Vitamin D PO (08:51)
[2019-06-11] MEDS ORDERED: RIVASTIGMINE TAR3 M1 PO (08:51)
--- NOTE | 2019-06-11 11:37 | NUR ---
AM GROUP PT ATTENDED MORNING GROUP THERAPY AND PARTICIPATED BY LISTENING TO MUSIC, SOCIALIZING AND WORKING A WORDSEARCH. PT EXPRESSED NO HALLUCINATIONS WHILE IN GROUP. PT IS LOOKING FORWARD TO BEING DISCHARGED FROM THE UNIT TODAY
--- NOTE | 2019-06-11 12:43 | NUR ---
Discharge Paperwork Faxed to [facility].
--- NOTE | 2019-06-11 13:12 | NUR ---
PHYSICAL THERAPY CO-SIGN I approve of the Physical Therapy notes written above. RIK LEON PT,DPT
--- NOTE | 2019-06-11 14:54 | NUR ---
ALL DISCHARGE PAPERWORK REVIEWED WITH PT. VERBALIZED UNDERSTANDING. WAGE AND SALARY ADMINISTRATOR STATES THAT DON AT FACILITY IS REQUESTING TWO DAY SUPPLY OF MEDICATIONS DUE TO NOT HAVING IN PHARMACY. PHARMACY STATES TO ENTER ORDERS ONE TIME ORDERS, DIRECTOR OF UNIT, STATES THIS IS ACCEPTABLE. WITNESSED BY WAGE AND SALARY ADMINISTRATOR AND SECOND RN.
--- NOTE | 2019-06-11 15:10 | NUR ---
PT DISCHARGED OFF UNIT AT THIS TIME VIA W/C IN C/O FACILITY TECHNICAL CONSULTANT. ESCORTED BY MENTAL HEALTH WORKER. ALL BELONGINGS AND PAPERWORK SENT WITH PT. LATUDA AND EXELON CAPSULES SENT. NURSE TO NURSE REPORT CALLED TO "MARCELA" AT [facility].
--- NOTE | 2019-06-11 15:44 | NUR ---
Patient discharged to [facility] today. Follow-up will be with visiting psychiatrist Dr Santana. An appointment was also scheduled with Dr Pillai for counseling. Pt improved while at [facility]. She was pleasant and social with staff and peers upon discharge.
--- NOTE | 2019-06-14 12:25 | NUR ---
OCCUPATIONAL THERAPY CO-SIGN I approve of the Occupational Therapy notes written above. SLIME AMARAL OTR/Dean
== END 2019-06-11 15:10 | DRG 885 ==
LOC: 3N 15:50
PROVIDERS: ADMIT Psychiatry & Neurology Psychiatry
DX: F25.9 Schizoaffective disorder, unspecified (principal); E43 Unspecified severe protein-calorie malnutrition; F03.91 Unspecified dementia, unspecified severity, with behavioral disturbance; F41.9 Anxiety disorder, unspecified; I25.10 Atherosclerotic heart disease of native coronary artery without angina pectoris; D64.9 Anemia, unspecified; E87.8 Other disorders of electrolyte and fluid balance, not elsewhere classified; E55.9 Vitamin D deficiency, unspecified; R15.9 Full incontinence of feces; L98.429 Non-pressure chronic ulcer of back with unspecified severity; N18.9 Chronic kidney disease, unspecified; E78.5 Hyperlipidemia, unspecified; E21.3 Hyperparathyroidism, unspecified; Z86.711 Personal history of pulmonary embolism; Z86.73 Personal history of transient ischemic attack (TIA), and cerebral infarction without residual deficits; Z82.49 Family history of ischemic heart disease and other diseases of the circulatory system; Z88.8 Allergy status to other drugs, medicaments and biological substances; Z79.82 Long term (current) use of aspirin; Z68.21 Body mass index [BMI] 21.0-21.9, adult

== ENCOUNTER → 2019-09-06 | Outpatient (CLI) | payer MEDICARE, MEDICAID ==
[~2019-09-06] MED LIST changes: +LATU80TA PO; +MIRTAZAPINE30 M2 PO; +Vitamin D PO
== END | disposition home or self-care (01) ==
LOC: RAD 08:30
DX: M81.0 Age-related osteoporosis without current pathological fracture (principal)

== ENCOUNTER → 2020-03-27 | Outpatient (CLI) | payer MEDICARE | END | disposition home or self-care (01) | LOC: MAMMO 08:59 | DX: Z12.31 Encounter for screening mammogram for malignant neoplasm of breast (principal) ==

== ENCOUNTER 2020-07-19 14:38 | Inpatient (IN) | payer MEDICARE ==
[~2020-07-19] VITALS: Ht 167.6 cm; Wt 68.0 kg
[~2020-07-19 14:38] MED LIST changes: +DRONABINOL2.5 MG PO; +FLEET MINERAL133 ML R; +MELATONIN10 M4 PO; +REMERON SOLTAB15 MG PO
[2020-07-19 14:45] VITALS: BP 74/38
--- NOTE | 2020-07-19 14:45 | NUR ---
Time: 1444 A 69 year old FEMALE admitted to under services of HEATHER MEMBRENO DO. Pt. arrived via stretcher from [facility]. Chief complaint: HYPERNATREMIA ELICEO MUNOZ A
--- NOTE | 2020-07-19 15:23 | NUR ---
DR. BROUSSARD NOTIFIED OF CONSULT.
[2020-07-19] MEDS ORDERED: MULTIVITAMINS1 EAC6 PO (15:26)
[2020-07-19] MEDS ORDERED: SODIUM IV (15:33)
[2020-07-19 15:50] LABS: HEMATOCRIT 52.7 % (37.0-47.0); MEAN CORPUSCULAR HGB 29.9 pg (27.0-31.0); MEAN CORPUSCULAR HGB CONC 28.5 g/dl (33.0-37.0); MEAN PLATELET VOLUME 13.4 fl (9.6-12.3); PLATELET COUNT AUTOMATED 229 10*3/uL (130-400); RED BLOOD COUNT 5.02 10*6/uL (4.10-5.10); RED CELL DISTRI WIDTH 14.9 % (0-14.5)
[2020-07-19 16:00] VITALS: BP 72/38
[2020-07-19 16:15] LABS: TOTAL CELLS COUNTED 100 #CELLS
[2020-07-19 16:16] LABS: PLATELET SUFFICIENCY NORMAL (NORMAL)
[2020-07-19 16:30] VITALS: BP 98/56
[2020-07-19 16:45] VITALS: BP 90/50
[2020-07-19 17:11] LABS: BILIRUBIN Negative (Negative); BLOOD 1+ (Negative); CLARITY Cloudy (Clear); COLOR Yellow (Yellow); GLUCOSE Negative (Negative); KETONE Trace (Negative); LEUKO ESTERASE 3+ (Negative); NITRITE Negative (Negative)
[2020-07-19 17:22] LABS: URINE CHLORIDE, RANDOM < 10 mmol/L
[2020-07-19 17:45] LABS: BACTERIA 1+; WBC 16-20 wbc/hpf (0-5)
--- NOTE | 2020-07-19 18:21 | NUR ---
SYLVIE LI NP AWARE OF PATIENT'S WOUND.
[2020-07-19 19:40] VITALS: BP 78/50
[2020-07-19 20:00] VITALS: BP 79/48
--- NOTE | 2020-07-19 20:33 | NUR ---
DR. HALL NOTIFIED OF PT'S LOW BP OF 78/50. CONTINUE TO MONITOR AT THIS TIME.
[2020-07-19 21:59] LABS: CREATININE 2.24 mg/dL (0.55-1.02); POTASSIUM 4.2 mmol/L (3.5-5.1)
--- NOTE | 2020-07-19 22:09 | NUR ---
DR. GRAY PHONED W/LABS AND BP. T.O. RCVD FOR 2L BOLUS NOW THEN INCREASE FLUID RATE TO 150ML/HR. CALL IF BP DOES NOT IMPROVE.
--- NOTE | 2020-07-19 23:53 | NUR ---
UPDATE GIVEN TO NURSE, KURT AT [facility] ON PT. PT'S CODE STATUS VERIFIED AND PT IS A FULL CODE W/NO LIVING WILL OR POA.
[2020-07-20] VITALS (7 sets, daily range): BP systolic 82–112; BP diastolic 40–64
--- NOTE | 2020-07-20 00:25 | NUR ---
PT REMAINS UNRESPONSIVE W/PERIODS OF APNEA NOTED, RESPS AT 12. WILL MONITOR.
--- NOTE | 2020-07-20 00:33 | NUR ---
DR. HALL UPDATED ON PT'S CODE STATUS. DR. GUERA TREVINO SEE PT.
--- NOTE | 2020-07-20 01:02 | NUR ---
DR. HALL ON FLOOR TO SEE PT. ORDERING STAT ABG'S, CXR, LABS, AND TO TX PT TO ICU. NOTIFIED THAT PT OPENED HER EYES AND TOLD ME HER NAME. RN TEACHER NOTIFIED OF TX ORDER. PT TO GO TO ICU BED 1.
[2020-07-20 01:22] LABS: ABG BASE EXCESS -4.3 mmol/L (-2.0-2.0); ARTERIAL BLOOD GAS PH 7.377 (7.35-7.45)
--- NOTE | 2020-07-20 01:35 | NUR ---
PT TRANSPORTED TO ICU VIA BED W/ALL BELONGINGS. REPORT GIVEN TO ROSA MARIA MATAMOROS RN.
--- NOTE | 2020-07-20 01:40 | NUR ---
PT TRANSFERRED TO ICU-1 FROM . PT IS RESTING IN BED WITH EYES CLOSED. WHEN ASKED HER NAME SHE ATTEMPTS TO ANSWER. SKIN WARM AND DRY. IV PATENT AND IVF'S INFUSING ORDERED WITHOUT DIFFICULTY. LUNGS CLEAR. POX 99% ON RA. NO ACUTE DISTRESS NOTED. RITTER PATENT FOR SWATHI URINE. BP 82/40(M), HR 65 AND REGULAR, T 97.1, R 16 AND NONLABORED.
--- NOTE | 2020-07-20 02:00 | NUR ---
DR HALL UPDATED ON PT VITALS AND ORDER TO CONTINUE TO WATCH PT AND OBTAIN BLOOD PRESSURES Q1H.
[2020-07-20 06:35] LABS: ALBUMIN 2.2 gm/dl (3.1-4.5); TOTAL PROTEIN 5.3 gm/dL (6.4-8.2)
[2020-07-20 06:50] LABS: CREATININE 1.62 mg/dL (0.55-1.02); POTASSIUM 4.2 mmol/L (3.5-5.1)
[2020-07-20 07:41] LABS: BASO % 0.3 % (0.0-1.0); EOS # 0.2 10*3/uL (0.0-0.4); EOS % 2.3 % (1.0-4.0); HEMATOCRIT 41.4 % (37.0-47.0); LYMPH # 1.3 10*3/uL (1.3-4.4); LYMPH % 12.5 % (27.0-41.0); MEAN CORPUSCULAR HGB 29.2 pg (27.0-31.0); MEAN CORPUSCULAR HGB CONC 28.7 g/dl (33.0-37.0); MEAN PLATELET VOLUME 13.5 fl (9.6-12.3); MONO # 0.8 10*3/uL (0.1-1.0); NEUT # 7.6 10*3/uL (2.3-7.9); NEUT % 76.4 % (47.0-73.0); PLATELET COUNT AUTOMATED 173 10*3/uL (130-400); RED BLOOD COUNT 4.07 10*6/uL (4.10-5.10); RED CELL DISTRI WIDTH 14.9 % (0-14.5)
[2020-07-20 07:45] LABS: MEAN CELL VOLUME 101.7 fl (81.0-99.0)
--- NOTE | 2020-07-20 07:51 | NUR ---
PHYSICAL THERAPY Screen and PT eval received pt was admitted to room 503-2 but then transfered to ICCU-1 on 07/20 due to hypotension and unresponsive. Due to change to change in medical status will require new PT orders when medically stable, thank you. Katya Salazar PT
--- NOTE | 2020-07-20 08:02 | NUR ---
OT referral received upon admission to [facility] but was transferred to ICCU with a decline in status. If patient should have a decline in baseline ADL status then refer to OT for further assessment. Thank you. Sonia Rodarte OTR/joycelyn
--- NOTE | 2020-07-20 08:36 | NUR ---
Flat affect, slow to respond. Minimal assist w/ turning. Incontinent small foul liquid BM. Repositioned to rt. Oral mucosa moist w/ wite patches. Many dental caries present. oral care given and breakfast ordered.
--- NOTE | 2020-07-20 10:29 | NUR ---
Repositioned. wound to jose cleft assessed by dr. Baca. Full feed for breakfast w/ minimal intake. followed by coughing. Swallow evaul ordered.
--- NOTE | 2020-07-20 11:00 | NUR ---
CM in to see patient. She is a LTC resident at [facility]. program planner following for her return when medically stable.
--- NOTE | 2020-07-20 11:59 | NUR ---
SPEECH PATHOLOGY NOTE BRIDAL GOWN FITTER received MBS orders for this pt; radiology was unable to schedule today and BRIDAL GOWN FITTER notified nursing and offered BSE to provide recommendations for PO intake in the meantime until MBS can be completed. Nursing agreed and submitted order for BSE. BSE performed today and pt positioned to 90 degrees in bed with pillow supports to maintain head posture. Pt responded to some questions, slow to respond and nursing stated cognitive status was due to high sodium levels. BRIDAL GOWN FITTER performed oral care to increase pt alertness, pt's eyes were open and she moved her tongue and lips during oral care. Nursing reported they fed her oatmeal this AM with no difficulty but coughing occured with thin liquids. BRIDAL GOWN FITTER provided one small spoonful of nectar thick liquids to start; no swallow was initiated despite clinician using tactile and multiple verbal cues to initiate swallow. BRIDAL GOWN FITTER then attempted to clean pt's oral cavity and pt would not open her mouth. Oral swab utilized to remove residue. No cough elicited, no volitional swallow. Pt exhibits poor ability to protect her airway, poor oral movements/strength/coordination and poor awareness of bolus. Pt also presents with very poor dental condition as well. Recommend pt remain NPO until cognition and alertness levels improve to continue to assess swallow function. MBS scheduled for 07/20. Andra De Los Santos MS [facility] BRIDAL GOWN FITTER
--- NOTE | 2020-07-20 12:04 | NUR ---
Dr. Ervin in to [facility]. Speech therapist in , bedside swallow studies complete at bedside. Recommended NPO until modified is complete. Repositioned to back. HOB elevated.
[2020-07-20 13:32] LABS: CREATININE 1.4 mg/dL (0.55-1.02); POTASSIUM 4.1 mmol/L (3.5-5.1)
--- NOTE | 2020-07-20 13:39 | NUR ---
DR WHITE MADE AWARE OF CRITICAL LABS.
--- NOTE | 2020-07-20 16:48 | NUR ---
Re-positioned to left. Incontinent seepage w/ very hard golf ball size stool. digital check revealed large amt hard stool, dulcolax suppository was given.
--- NOTE | 2020-07-20 20:06 | NUR ---
1930 RESTING IN BED ON RIGHT SIDE. HOB ELEVATED. SIDE RAILS UP X'S 2. IV FLUIDS CONT. FLAT AFFECT REMAINS, VERY SLOW TO RESPOND. RITTER PATENT AND DRAINING CLEAR YELLOW URINE. PULSE OX 98% ON RA.
[2020-07-20 20:32] LABS: CREATININE 1.25 mg/dL (0.55-1.02)
--- NOTE | 2020-07-20 22:22 | NUR ---
DR. GRAY ANSWERED EARLIER PAGE FROM 7-11 RN. INFORMED OF BLOOD WORK RESULTS ETC. NO NEW ORDERS RECEIVED.
[2020-07-21] VITALS: BP 129/56
--- NOTE | 2020-07-21 00:22 | NUR ---
REPOSITIONED Q2H. ORAL CARE DONE. IV FLUIDS CONT.
[2020-07-21 04:00] VITALS: BP 105/60
--- NOTE | 2020-07-21 04:09 | NUR ---
RESTING INBED WITH EYES CLOSED. APPEARS TO BE SLEEPING.
[2020-07-21 05:51] LABS: ALBUMIN 2.5 gm/dl (3.1-4.5); ALKALINE PHOSPHATASE 89 U/L (45-117); CREATININE 1.09 mg/dL (0.55-1.02); POTASSIUM 4.1 mmol/L (3.5-5.1); SGOT/AST 26 IU/L (3-35); SGPT/ALT 19 U/L (12-78); SODIUM 160 mmol/L (136-145); TOTAL PROTEIN 5.9 gm/dL (6.4-8.2)
[2020-07-21 05:57] LABS: BUN 38 mg/dl (7-24)
[2020-07-21 05:58] LABS: CHLORIDE 132 mmol/L (98-107)
--- NOTE | 2020-07-21 06:06 | NUR ---
IV FLUIDS CONT. REMAINS NPO. RITTER PATENT. CONDITION GUARDED.
[2020-07-21 06:31] LABS: BASO % 0.3 % (0.0-1.0); EOS # 0.2 10*3/uL (0.0-0.4); HEMATOCRIT 42.6 % (37.0-47.0); LYMPH # 1.4 10*3/uL (1.3-4.4); LYMPH % 14.5 % (27.0-41.0); MEAN CELL VOLUME 102.4 fl (81.0-99.0); MEAN CORPUSCULAR HGB 29.8 pg (27.0-31.0); MEAN CORPUSCULAR HGB CONC 29.1 g/dl (33.0-37.0); MEAN PLATELET VOLUME 14.1 fl (9.6-12.3); MONO # 0.9 10*3/uL (0.1-1.0); MONO % 9.1 % (3.0-9.0); NEUT # 7.2 10*3/uL (2.3-7.9); NEUT % 73.5 % (47.0-73.0); PLATELET COUNT AUTOMATED 167 10*3/uL (130-400); RED BLOOD COUNT 4.16 10*6/uL (4.10-5.10); RED CELL DISTRI WIDTH 14.7 % (0-14.5); WHITE BLOOD COUNT 9.8 10*3/uL (4.8-10.8)
--- NOTE | 2020-07-21 07:21 | NUR ---
Shift chart check completed.
[2020-07-21 08:00] VITALS: BP 123/70
--- NOTE | 2020-07-21 09:00 | NUR ---
CM in to see patient. She is a LTC resident at [facility]. space planner following for her return when medically stable.
--- NOTE | 2020-07-21 09:49 | NUR ---
DR BECK ROUNDED AND AWAITING RETURN CALL FROM DR GRAY ABOUT AM LABS. DR WHITE AWARE OF URINE CULTURE RESULT AND MERREM NOT ON SENSITIVITY LIST
--- NOTE | 2020-07-21 11:01 | NUR ---
DR WHITE AWARE THAT IV IS OUT AND WE WERE UNABLE TO GET ANOTHER SITE AFTER MULTIPLE ATTEMPTS BY MULTIPLE NURSES. MIDLINE ORDERED
--- NOTE | 2020-07-21 11:21 | NUR ---
SURGERY WAS NOTIFIED EARLIER ABOUT NEED FOR A MIDLINE
--- NOTE | 2020-07-21 11:52 | NUR ---
PER DR WHITE PICC LINE NOT MIDLINE NEEDS INSERTED AFTER SPEAKING WITH OTHER PHYSICIANS
[2020-07-21 12:00] VITALS: BP 114/63
--- NOTE | 2020-07-21 12:57 | NUR ---
CALLS WERE PLACED & MESSAGES LEFT TO DAUGHTER & HUSBANDS NUMBERS. STILL NO RETURN CALL FOR CONSENT FOR PICC LINE
--- NOTE | 2020-07-21 13:27 | NUR ---
DR WHITE TOLD STILL NO RETURN CALL FROM FAMILY
[2020-07-21 13:59] LABS: BUN 33 mg/dl (7-24); CREATININE 1.04 mg/dL (0.55-1.02); POTASSIUM 4.2 mmol/L (3.5-5.1); SODIUM 158 mmol/L (136-145)
--- NOTE | 2020-07-21 14:05 | NUR ---
SPEECH THERAPY Attempted MBS this date, however patient was not able to transfer and sit safely in wheelchair for assessment in radiology. Patient was treated at bedside for continued treatment and assessment of oropharyngeal swallow mechanism. Spoke with patient's nurse about patient's status. She reported patient has been "in and out of catatonic state" but was more alert this morning. Patient's nurse reported patient was able to consume meds orally this morning. Nurse assisted in re-positioning patient to upright in bed. Patient was pleasant and cooperative throughout session. She was able to verbally provide name, , and current location demonstrating orientation and receptive/expressive language skills. Toothette used to provide oral swab with trace amounts of liquid on toothette. Following moistening of mouth, patient not able to elicit volitional swallow when paired with tactile and verbal cues. Thermal stimulation targeted to increase oral awareness. Toothette placed in ice chips and then used to swab inside of patient's mouth which elicited more lingual movement. She was given small ice chip. Patient observed manipulating ice chip within oral cavity. When given verbal prompt and tactile cue to swallow, volitional swallow was elicited. Following consumption of ice chip, patient stated "that was so good" with soft vocal intensity and clear vocal quality. Patient provided with second small ice chip. She was again observed manipulating bolus, however she did elicit swallow. Vebal prompts and tactile cues provided without elicted pharyngeal swallow. Wet vocal quality was observed following. Clinician discussed results with patient's nurse. Discussed improvement in oral awareness when provided with sensory/thermal input, and recommended continued use with cold metal spoon. Reported to patient's nurse that second swallow was not elicited, with resulting wet vocal quality. Discussed plan for continued treatment/assessment of patient and recommendation to not provide oral feeding without appropraite level of alertness. Will continue to follow with patient care. Desire Guzman MA CCC-CHEMISTRY TECHNICAL OFFICER
[2020-07-21 14:06] LABS: CHLORIDE 131 mmol/L (98-107)
--- NOTE | 2020-07-21 14:23 | NUR ---
UNABLE TO INFUSING IVF & KPHOS ORDERED D/T NO IV SITE -
--- NOTE | 2020-07-21 14:50 | NUR ---
DR GRAY HERE AND PATIENT SEEN. NGT PLACED WITHOUT DIFFICULTY VIA RT NARES. PLACEMENT CHECKED WITH AIR BOLUS. SUPPOSITORY GIVEN FOR CONSTIPATION. PICC LINE PLACEMENT STARTED
[2020-07-21 16:00] VITALS: BP 118/72
--- NOTE | 2020-07-21 16:30 | NUR ---
PATIENT PULLED OUT INITIAL NGT. REPLACED WITH #16 IN RT NARES WITHOUT DIFFICULTY. PLACEMENT WITH AIR BOLUS THEN CXR. RESTRAINTS ON TO PREENT PT FROM PULLING OUT NGT OR PICC LINE FOR NEEDED MEDICATIONS/NUTRITION
[2020-07-21 20:00] VITALS: BP 127/70
--- NOTE | 2020-07-21 20:54 | NUR ---
TYLENOL GIVEN THROUGH NG TUBE FOR SLIGHT FEVER AND TO ALLEVIATE ACHES AND PAIN PATIENT MAY HAVE. RN WILL CONTINUE TO MONITOR
--- NOTE | 2020-07-21 22:00 | NUR ---
TEMPERATURE REMAINS THE SAME BUT PATIENT IS NOW RESTING WITH EYES CLOSED AND HEARTRATE HAS ALSO DECREASED INTO THE 60'S RN WILL CONTINUE TO MONITOR
[2020-07-22] VITALS: BP 107/65
--- NOTE | 2020-07-22 03:30 | NUR ---
PATIENT RESTING WITH EYES CLOSED, PATIENT AWAKENS WITH REPOSITIONING BUT DOES NOT OFFER VERBAL RESPONSE WHEN ASKED QUESTIONS. DOES TRACK WITH EYES WHEN WALKING AROUND ROOM. PATIENT STILL HAS NOT HAD A BOWEL MOVEMENT SINCE EARLIER MEDICATIONS. RN WILL CONTINUE TO MONITOR
[2020-07-22 04:00] VITALS: BP 136/74
--- NOTE | 2020-07-22 06:45 | NUR ---
PATIENT HAS MOVED BOWELS. SMALL HARD GREEN MOVEMENT WITH SOME LOOSE GREEN BM BEHIND IT. PATIENT CLEANED AND TOLERATED WELL. RN WILL CONTINUE TO MONITOR
[2020-07-22 06:57] LABS: ALBUMIN 2.4 gm/dl (3.1-4.5); ALKALINE PHOSPHATASE 96 U/L (45-117); CHLORIDE 124 mmol/L (98-107); CREATININE 0.84 mg/dL (0.55-1.02); POTASSIUM 3.8 mmol/L (3.5-5.1); SGOT/AST 23 IU/L (3-35); SGPT/ALT 19 U/L (12-78); SODIUM 152 mmol/L (136-145); TOTAL PROTEIN 5.7 gm/dL (6.4-8.2)
[2020-07-22 07:02] LABS: BUN 22 mg/dl (7-24)
--- NOTE | 2020-07-22 07:27 | NUR ---
Shift chart check completed.24 HR chart check completed.
[2020-07-22 08:00] VITALS: BP 112/60
--- NOTE | 2020-07-22 11:35 | NUR ---
COMPLETE BED BATH GIVEN. GOVIND HOSE REMOVED FOR THE BATH. 4 REDDENED AREAS IDENTIFIED AND MEASURED/PHOTOGRAPHED. JULITA MALCOLM, SHIFT DIRECTOR, CAME TO SEE THEM AND STAGE THEM.
[2020-07-22 12:00] VITALS: BP 130/73
--- NOTE | 2020-07-22 13:40 | NUR ---
DR BECK IN AND SAW WOUNDS.
--- NOTE | 2020-07-22 14:15 | NUR ---
DR GARZA (FOR DR MCGRAW) NOTIFIED THAT DR THU SKAGGSAY WITH TELEMETRY STATUS FOR THIS PATIENT. SHIFT DIRECTOR, JULITA MALCOLM, ALSO NOTIFIED.
--- NOTE | 2020-07-22 14:24 | NUR ---
PT'S DAUGHTER CALLED IN. PHONE HELD FOR PATIENT AND SHE DID CONVERSE IN SHORT PHRASES.
--- NOTE | 2020-07-22 14:31 | NUR ---
DR MAJOR NOTIFIED THAT SHIFT DIRECTOR HAS STAGED WOUNDS AND ORDERS NEEDED.
--- NOTE | 2020-07-22 15:00 | NUR ---
WOUND CARE PER ORDERS. GOVIND HOSE WERE NOT REAPPLIED. STOCKINETTE APPLIED UNDER THE HEEL RAISERS.
[2020-07-22 16:00] VITALS: BP 130/73
[2020-07-22 20:00] VITALS: BP 97/49
[2020-07-23] VITALS: BP 112/60
[2020-07-23 04:00] VITALS: BP 96/54
[2020-07-23 05:55] LABS: ALBUMIN 2.5 gm/dl (3.1-4.5); ALKALINE PHOSPHATASE 108 U/L (45-117); BUN 15 mg/dl (7-24); CHLORIDE 116 mmol/L (98-107); CREATININE 0.79 mg/dL (0.55-1.02); SGOT/AST 24 IU/L (3-35); SGPT/ALT 20 U/L (12-78); SODIUM 148 mmol/L (136-145); TOTAL PROTEIN 5.9 gm/dL (6.4-8.2)
--- NOTE | 2020-07-23 07:27 | NUR ---
Shift chart check completed.24 HR chart check completed.
--- NOTE | 2020-07-23 07:50 | NUR ---
ON ASSESSMENT PATIENT IS AWAKE, FLAT AFFECT. SOFTLY SAID "GOOD MORNING" TO ANSWER ME. IV FLUIDS CONTINUE. TUBE FEEDING VIA RT NARE NGT AT 20/HR. REPOSITIONED. SOFT WRIST RESTRAINTS TO PREVENT REMOVAL OF NGT/PICC LINE. RITTER INTACT. HEEL RAISERS IN PLACE. SEE ALL APPROPRIATE INTERVENTIONS.
[2020-07-23 07:58] VITALS: BP 100/60
--- NOTE | 2020-07-23 10:36 | NUR ---
JULITA MALCOLM, GRADES 7 AND 8 VISITING TEACHER MADE AWARE PT NOW "NON-MONITORED" STATUS.
[2020-07-23 12:00] VITALS: BP 104/67
--- NOTE | 2020-07-23 13:15 | NUR ---
DR BARBOZA FROM [facility] VISITED. REVIEW OF LABS/CURRENT FLUIDS/DIET. IV FLUIDS D/C PER HER ORDER. DR MAJOR NOTIFIED OF HER RECOMMENDATION TO INCREASE PULMOCARE TO 40/HR AND ORDER RECEIVED FOR THAT. INFUSION RATE INCREASED TO 40/HR.
[2020-07-23 16:00] VITALS: BP 112/53
--- NOTE | 2020-07-23 18:09 | NUR ---
PATIENT TRANSFERRED TO THE FLOOR FROM ICCU, REPORT RECEIVED. PATIENT AWAKE/ALERT SHAKES HEAD YES/NO TO ANSWER QUESTIONS. HOB UP 30 DEGREES FOR NGT FEEDING IN USE.
--- NOTE | 2020-07-23 18:12 | NUR ---
PT TRANSFERRED IN STABLE CONDITION TO 528. REPORT TO MARY MCCLENDON.
--- NOTE | 2020-07-23 18:22 | NUR ---
MESSAGE LEFT ON DAUGHTER'S VOICEMAIL ABOUT TRANSFER TO .
[2020-07-23 20:00] VITALS: BP 100/54
--- NOTE | 2020-07-23 20:00 | NUR ---
Patient resting quietly with no c/o discomfort. Respirations easy and regular. Vital signs stable. No overt distress. ELICEO SCOTT
--- NOTE | 2020-07-23 23:37 | NUR ---
24 HR chart check completed.
[2020-07-24] VITALS: BP 92/48
[2020-07-24 06:46] LABS: BASO % 0.3 % (0.0-1.0); EOS # 0.2 10*3/uL (0.0-0.4); EOS % 2.3 % (1.0-4.0); HEMATOCRIT 39.5 % (37.0-47.0); LYMPH # 1.8 10*3/uL (1.3-4.4); LYMPH % 17.6 % (27.0-41.0); MEAN CELL VOLUME 95.2 fl (81.0-99.0); MEAN CORPUSCULAR HGB 29.4 pg (27.0-31.0); MEAN CORPUSCULAR HGB CONC 30.9 g/dl (33.0-37.0); MEAN PLATELET VOLUME 13.4 fl (9.6-12.3); MONO # 0.9 10*3/uL (0.1-1.0); MONO % 8.9 % (3.0-9.0); NEUT # 7.3 10*3/uL (2.3-7.9); NEUT % 69.6 % (47.0-73.0); PLATELET COUNT AUTOMATED 170 10*3/uL (130-400); RED BLOOD COUNT 4.15 10*6/uL (4.10-5.10); RED CELL DISTRI WIDTH 13.7 % (0-14.5); WHITE BLOOD COUNT 10.5 10*3/uL (4.8-10.8)
[2020-07-24 07:06] LABS: ALBUMIN 2.6 gm/dl (3.1-4.5); ALKALINE PHOSPHATASE 119 U/L (45-117); BUN 16 mg/dl (7-24); CHLORIDE 114 mmol/L (98-107); CREATININE 0.79 mg/dL (0.55-1.02); SGOT/AST 19 IU/L (3-35); SGPT/ALT 21 U/L (12-78); SODIUM 146 mmol/L (136-145); TOTAL PROTEIN 6.1 gm/dL (6.4-8.2)
--- NOTE | 2020-07-24 07:43 | NUR ---
PHYSICAL THERAPY Screen and PT eval received will follow Katya Salazar PT
[2020-07-24 08:00] VITALS: BP 102/50
--- NOTE | 2020-07-24 08:00 | NUR ---
IN TO ROOM. PATIENT AWAKE. ANSWERS SOME QUESTIONS BUT IS DELAYED IN RESPONSE. FLAT AFFECT. 300 CC FREE WATER FLUSHED PREFORMED AND TOLERATED WELL. AIR BOLUS HEARD TO VERIFY PLACEMENT. BED IN LOWEST LOCKED POSITION. NO SOB NOTED AT REST. RESPIRATIONS ARE EASY AND REGULAR. ROOM AIR.
--- NOTE | 2020-07-24 11:00 | NUR ---
PT'S DRESSING CHANGES PREFORMED AT THIS TIME. NO STATED COMPLAINTS. PT DENIES PAIN. RESPIRATIONS ARE EASY AND REGULAR, NO SOB NOTED. BED IN LOWEST LOCKED POSITION AND CALL LIGHT WITHIN REACH. WILL CONTINUE TO MONITOR.
--- NOTE | 2020-07-24 11:26 | NUR ---
MORTICIAN SUPPLIES SALES REPRESENTATIVE FAXED UPDATES TO [facility]. PATIENT IS LTC AT [facility] AND CAN RETURN WHEN MEDICALLY STABLE.
[2020-07-24 12:00] VITALS: BP 106/50
--- NOTE | 2020-07-24 13:47 | NUR ---
SPEECH PATHOLOGY Patient was seen for treatment this pm focusing on continued assessment of swallowing skills to determine most appropriate means of nutrition. Patient is currently NPO and fed by NG tube. She was alert and able to follow commands though slow to respond. Significant generalized weakness was displayed. Patient performed oral exercises with model and cue. Impaired strength and ROM were displayed. Patient was given small sips of water by spoon. She swallowed in a timely manner but required multiple swallows per sip. Delayed cough post swallow was displayed. Patient commented "it's hard to swallow." Due to status, trials were terminated at this point. Recommend continued NPO status. Therapy will continue with focus on oral and pharyngeal strengthening exercises and therapeutic feedings. SHELLY LIVINGSTON MS [facility] HEATER OPERATOR
--- NOTE | 2020-07-24 13:53 | NUR ---
DR. VILLA NOTIFIED OF CONSULT.
--- NOTE | 2020-07-24 14:20 | NUR ---
PHYSICAL THERAPY Physical Therapy evaluation completed on 5th floor with full evaluation to follow. Recommend physical therapy per plan of care and SNF upon discharge. Thank you for this referral. Katya Salazar PT
--- NOTE | 2020-07-24 14:20 | NUR ---
Occupational Therapy evaluation completed on 5 with full eval to follow. Precautions include fall risk, bed alarm,NG tube, IV UE,wrist restraints, dependent transfer, bed mobility, poor sit balance, high complexity level 60848. Recommend return to nursing facility at discharge and continue OT treatment to acheive max functional level. Thank you. Sonia Rodarte OTR/L
[2020-07-24 16:00] VITALS: BP 101/53
[2020-07-24 20:00] VITALS: BP 119/58
--- NOTE | 2020-07-24 20:30 | NUR ---
AWAKE & ALERT. REPOSITIONED BY THIS R.N. FOR COMFORT. NG TUBE INTACT TO RIGHT NARES & PT. IS RECEIVING PULMOCARE AT 40 CC'S HOUR. CHECKED FOR RESIDUAL; NO RESIDUAL NOTED. PT. TOLERATING TUBE FEEDING WELL. IV FLUIDS INFUSING ORDERED; SITE ASYMPTOMATIC. NO DISTRESS NOTED; CALL LIGHT WITHIN REACH. WILL CONTINUE TO MONITOR.
[2020-07-25] VITALS: BP 146/85
[2020-07-25 06:29] LABS: ALBUMIN 2.7 gm/dl (3.1-4.5); BUN 22 mg/dl (7-24); CHLORIDE 112 mmol/L (98-107); CREATININE 0.83 mg/dL (0.55-1.02); SGOT/AST 20 IU/L (3-35); SGPT/ALT 22 U/L (12-78); SODIUM 143 mmol/L (136-145); TOTAL PROTEIN 6.4 gm/dL (6.4-8.2)
[2020-07-25 06:30] LABS: ALKALINE PHOSPHATASE 120 U/L (45-117)
[2020-07-25 08:00] VITALS: BP 104/55
--- NOTE | 2020-07-25 09:00 | NUR ---
CM in to see patient. She is a LTC resident at [facility] yarn worker following for her return when medically stable.
--- NOTE | 2020-07-25 11:08 | NUR ---
OT NOTE Pt was seen this A.M. 1:1 for 15 minute OT session. Upon arrival pt was supine in bed. Pt identified by name and and had no complaints at this time. Pt presented to therapy with B wrist restraints, NG tube, and IV to RUE which remained in place thorughout entire session. Pt's restraints were doffed and pt transferred supine to sit EOB with maxA X 2. While sitting EOB challenged pt's static sitting balance which pt presented with F- requiring Henrik/UE support to maintain. Pt completed A/AAROM to BUE over all planes for 1 X 5 to increase and restore maximum functional use. Pt tolerated sitting EOB for 11 minutes before requesting to lay back down. Pt transferred sit to supine with maxA X 2. There she was left with call light in hand, tray table in place, bed alarm activated, and B wrist restraints donned. Continue with rec D/C plan to return to SNF/LTC. MATT Anderson/Dean
[2020-07-25 12:00] VITALS: BP 126/70
--- NOTE | 2020-07-25 12:58 | NUR ---
PHYSICAL THERAPY TREATMENT TIME: IN 10:50 AM - 11:10 AM 20 MINUTES TOTAL Patient presented to therapy in supine with head of bed elevated and bed alarm on. Patient has peg tube and catheter. Patient gives informed consent for treatment. Patient was identified by name and on wristband. Patient has no wt bearing restrictions abd limited Knee extension. Poor trunk control. Patient completed supine <> sitting EOB with MAX A X 2. Patient sat on EOB with L LATERAL LEAN. Patient Patient sat on EOB for 11 minutes total with MIN A X 1 - CGA. Patient required V/Cs for upright posture in sitting on EOB. PATIENT UNABLE TO STAND AT THIS TIME DUE TO WEAKNESS. Patient performed seated bilateral LE ther ex x 10 reps each in all planes of maovemnt AROM - AAROM for strengthening. Patient performed core stability strengthening while in sitting tolerance. Patient transferred back to supine in bed with MAX A X 2. Patient moved up in bed with sheet transfer with MAX A X 2. Patient ws left in supine with head of bed elevated and call light within reach. Bed alarm was turned on. Patient was 1:1 with this SALES CLOSER for 20 minutes total. ADELINE ARECHIGA SALES CLOSER
--- NOTE | 2020-07-25 14:32 | NUR ---
SPEECH PATHOLOGY Patient was seen for treatment this pm, targeting indirect therapy to improve swallowing skills. Patient was alert and cooperative though significantly weak. She performed oral exercises following cue and model. Very limited oral ROM was displayed. Strength was impaired as well. Patient attempted pharyngeal exercises. She was unable to perform any exercise involving a volitional swallow. She was able to perform gargling and falsetto exercises though weakness was again displayed. Ice chips were used for therapeutic feeding. Patient was able to chew and swallow, though swallow was weak and delayed. Patient is showing progress overall and it is recommended that therapy continue. As further progress is displayed, patient would benefit from MBS to determine appropriateness of oral feeding. Continue plan. SHELLY LIVINGSTON MSCCC-MITER OPERATOR
[2020-07-25 15:50] VITALS: BP 131/69
[2020-07-25 20:00] VITALS: BP 114/58
--- NOTE | 2020-07-25 20:30 | NUR ---
AWAKE & ALERT. HOB ELEVATED 30 DEGREES. PULMOCARE TUBE FEEDING INFUSING INTO RIGHT NARES AT 40 CC'S HOUR. NO RESIDUAL NOTED; PT. TOLERATING WELL. IV FLUIDS INFUSING INTO PICC LINE IN RIGHT ARM; PICC LINE ASYMPTOMATIC. LUNGS CLEAR WITH NO COUGH NOTED. RITTER PATENT FOR SWATHI URINE. WRIST RESTRAINTS INTACT. NO DISTRESS NOTED; WILL CONTINUE TO MONITOR.
--- NOTE | 2020-07-25 21:00 | NUR ---
AWAKE & ALERT; MOUTH CARE DONE AT THIS TIME; PT. TOLERATED FAIR. TUBE FEEDING CONTINUES TO INFUSE ORDERED. NO DISTRESS NOTED; HOB REMAINS ELEVATED. CALL LIGHT WITHIN REACH.
--- NOTE | 2020-07-25 22:30 | NUR ---
AROUSES EASILY TO VERBAL STIMULI. MOUTH CARE DONE. HOB ELEVATED; TUBE FEEDING INFUSING. NO DISTRESS NOTED.
[2020-07-26] VITALS (8 sets, daily range): BP systolic 103–115; BP diastolic 41–62
--- NOTE | 2020-07-26 | NUR ---
TUBE FEEDING SHUT OFF; PT. NPO FOR INSERTION OF PEG TUBE IN THE MORNING. WILL CONTINUE TO MONITOR.
--- NOTE | 2020-07-26 02:00 | NUR ---
RESTING IN BED WITH EYES CLOSED; HOB ELEVATED; IV FLUIDS INFUSING. NO DISTRESS NOTED; WILL CONTINUE TO MONITOR.
--- NOTE | 2020-07-26 03:35 | NUR ---
WOUND FOUND ON PATIENT'S LEFT BUTTOCK & SEEN BY WOUND CARE NURSE. PICTURE TAKEN & STAGED BY WOUND CARE NURSE.
--- NOTE | 2020-07-26 04:30 | NUR ---
BATHED BY PA'S FOR INSERTION OF PEG TUBE TODAY. PT. IS NPO. IV FLUIDS INFUSING; CALL LIGHT WITHIN REACH.
[2020-07-26 06:46] LABS: BUN 15 mg/dl (7-24); CHLORIDE 110 mmol/L (98-107); CREATININE 0.65 mg/dL (0.55-1.02); POTASSIUM 3.7 mmol/L (3.5-5.1); SODIUM 143 mmol/L (136-145)
--- NOTE | 2020-07-26 08:30 | NUR ---
PHYSICAL THERAPY Nursing screen received. Patient is already on PT caseload. Will continue to follow. Thank you. Leanna Howell,PT,DPT
--- NOTE | 2020-07-26 09:00 | NUR ---
CM in to see patient. She is a LTC resident at [facility]. stage set up worker following for her return when medically stable.
--- NOTE | 2020-07-26 09:26 | NUR ---
OT NOTE Pt was seen this A.M. 1:1 for 20 minute OT session. Upon arrival pt was supine in bed. Pt identified by name and and had no complaints at this time. Pt presented to therapy with NG tube in place, IV to RUE, and B wrist restraints. Pt transferred supine to sit EOB with maxA X 2. While sitting EOB challenged pt's dynamic sitting balance while weight shifting, crossing midline, and reaching over all planes. Pt was able to maintain F- sitting balance throughout. While sitting EOB pt completed BUE AAROM over all planes for 1 x 10 to increase and restore maximum functional use. Pt tolerated sitting EOB for aprox 12 minutes. Pt transferred sit to supine with maxA X 2. There she was left with call light in hand, body alarm activated, and B wrist restraints donned. Continue with rec D/C plan to return to SNF/LTC. MATT Anderson/Dean
--- NOTE | 2020-07-26 10:03 | NUR ---
PHYSICAL THERAPY TREATMENT TIME: IN 09:05 AM - OUT 09:28 AM 23 MINUTES TOTAL Patient presented to therapy in supine wit hhead of bed elevated and NG TUBE in place and Catheter. Patient has one IV infusing. Patient gives informed consent. Patient was identified by name and on wristband. Patient is suppossed ot get a peg tube placed today. Patient has no wt bearing restrictions. Patient performed supine to sitting on EOB with MAX A X 2. Patient sat on EOB with SBA for 5 minutes total. Patient then completed STS from EOB with MIN A X 2 with verbal cues for hand placement and locking knees into extension upon standing. Patient 1ST ATTEMPT 15 SECONDS , 2ND ATTEMPT 15 MINUTES AND 3RD ATTEMPT 18 SECONDS. Patient completed bilateral LE ther ex x 10 reps each AROM- AAROM for strengthening the LEs including LAQs, Heel toes raises and marches. Patient transferred back to supine in bed with MAX A X 2. Patient was left in supine in bed with head of bed eelvated , chair alarm on and call light within reach. Patient was 1:1 with this ROASTER SUPERVISOR for 23 minutes total. ADELINE ARECHIGA ROASTER SUPERVISOR
--- NOTE | 2020-07-26 14:30 | NUR ---
PATIENT TO OR BY BED FOR PEG PLACEMENT.
--- NOTE | 2020-07-26 14:43 | NUR ---
SPEECH PATHOLOGY Patient is currently out of room for PEG tube placement and therefore unavailable for treatment. Will follow up as appropriate tomorrow. SHELLY LIVINGSTON MSCCC-LEAD MANUFACTURING TECHNICIAN
--- NOTE | 2020-07-26 15:36 | NUR ---
PT UNABLE TO SIGN. TWO NURSES TO SIGN ON VERBAL CONSENT FROM PT. FAMILY WAS CALLED BUT NO ANSWER. DR. MCGRAW WAS CALLED TO GIVE A TWO DOCTOR AND ANESTHEZIA CONSENT. DR. MCGRAW CONFIRMED WITH DR. VILLA AND DR. DE JESUS THAT A PEG TUBE PLACEMENT IS AT THIS TIME APPROPRIATE FOR THE PT.
--- NOTE | 2020-07-26 16:41 | NUR ---
PATIENT RETURNED FROM PEG PLACEMENT PROCEDURE. SEE SHIFT ASSESSMENTS FOR DETAILS.
--- NOTE | 2020-07-26 16:48 | NUR ---
Nursing screen received. Patient is already being seen by OT. Thank you Sonia Rodarte OTR/L
--- NOTE | 2020-07-26 18:50 | NUR ---
ASPIRATED 60ML RESIDUAL AT THIS TIME. PEG FEEDING TURNED OFF, FLUSHED WITH 30ML H20 AND SECURED STOP.
--- NOTE | 2020-07-26 20:00 | NUR ---
SITTING UP IN CHAIR. ALARM INTACT. PLEASANT AND COOPERATIVE. NO C/O VOICED. PEG TUBE FUNCTIONING PROPERLY. FLUSHES WITH EASE. PLACEMENT VERIFIED VIA AIR BOLUS. ASSESSMENT COMPLETED SEE FLOWSHEET. CALL LIGHT WITH IN REACH.
[2020-07-27] VITALS: BP 87/44
[2020-07-27 08:00] VITALS: BP 94/47
--- NOTE | 2020-07-27 08:50 | NUR ---
SPEECH PATHOLOGY Patient had PEG tube placed yesterday for feeding. Speech pathology services for dysphagia will be discontinued at this time. Thank you for this referral. SHELLY LIVINGSTON MS[facility]-SLAG EXPANDER
--- NOTE | 2020-07-27 09:07 | NUR ---
OT NOTE Pt was seen this A.M. 1:1 for 25 minute OT session. Upon arrival pt was sitting upright in the recliner. Pt identified by name and and had no complaints at this time other than generalized fatigue. Pt presented to therapy with PEG tube in place and continuous 3L-O2 via NC which she remained on throughout the entire session. While seated pt completed upper body bathing with Henrik for assist with set up of supplies and sequencing of task. She then completed hair care with SBA. Pt completed AAROM to BUE over all planes for 1 X 10 to increase and restore maximum functional use. Sit to stand completed from chair level with maxA X 2 and use of w/w for UE support. Challenged pt's static standing tolerance needed for increased I in self care tasks and functional transfers, pt was able to tolerate aprox 10 seconds at a time. Pt was left sitting upright in the recliner with call light in hand, tray table in place, and body alarm activated for safety. Continue with rec D/C plan to return to SNF/LTC. MATT Anderson/Dean
--- NOTE | 2020-07-27 10:06 | NUR ---
PHYSICAL THERAPY TREATMENT TIME: IN 08:50 AM - OUT 09:10 AM 20 MINUTES TOTAL Patient presented to therapy in sitting in bedside chair with chair alarm attached. Patient has peg tube, IV infusing and no spO2. Patient has catheter. Patient gives informed consent for treatment. Patient was identified by name and on wristband. Patient STS from bedside chair with MOD A X 2 and verbal cues for hand placement. Patient's hands have to be manually placed in correct position. No flexion synergy in hands today. Patient stood for < 10 seconds with MIN A X 2 and then had to sit in chair. Patient stood a second time with MAX A X 2 and again the patient's hands had to placed in correct position. Patient stood this time with MIN A X 2 for < 10 seconds again. Patient performed seated bilateral LE ther ex x 10 reps each with Maximum verbal cues for proper technique and also visual demonstrations. Patient performed LAQs, Marches and heel/toe raises x 10 reps each. Patient was left in bedside chair with call light within reach, chair alarm tested and attached to patient and and LEs in low position. Patient was 1:1 with this UNDERWRITING OPERATIONS MANAGER for 20 minutes total. ADELINE ARECIHGA UNDERWRITING OPERATIONS MANAGER
--- NOTE | 2020-07-27 11:58 | NUR ---
SUPERVISOR OF COMMUNICATIONS NOTIFIED OF PATIENT DISCHARGE. SUPERVISOR OF COMMUNICATIONS SPOKE WITH DANELLE PERRY. SUPERVISOR OF COMMUNICATIONS ARRANGED FOR [facility] TO TRANSPORT THE PATIENT AT 1PM TODAY. SUPERVISOR OF COMMUNICATIONS NOTIFIED MARGARITA BLACK. SUPERVISOR OF COMMUNICATIONS CALLED PATIENTS DAUGHTER RACHELLE, CALL RANG AND THEN WENT TO A BUSY TONE. SUPERVISOR OF COMMUNICATIONS CALLED PATIENTS AND LEFT A VOICE MAIL. SUPERVISOR OF COMMUNICATIONS FAXED DISCHARGE ORDERS/UPDATES TO [facility].
[2020-07-27 12:00] VITALS: BP 124/59; BP 97/55
--- NOTE | 2020-07-27 12:55 | NUR ---
RITTER AND PICC LINE REMOVED. PATIENT TO BE DISCHARGED TO [facility].
--- NOTE | 2020-07-27 13:56 | NUR ---
Discharge instructions reviewed with patient/family. Patient receptive and verbalizes understanding. Follow-up care arranged. Written instructions given to patient/family. DRAGAN CONTRERAS
--- NOTE | 2020-07-27 14:07 | NUR ---
ATTEMPTED TO GIVE NURSE TO NURSE REPORT, IST PERSON ANSWERED AND THEN TRANSFERED ME WHERE NOONE PICKED UP. ARY DISCHARGED AND IS ENROUTE VIA AMBULANCE.
--- NOTE | 2020-07-27 16:16 | NUR ---
OCCUPATIONAL THERAPY CO-SIGN I approve of the Occupational Therapy notes written above. SLIME AMARAL OTR/Dean
--- NOTE | 2020-07-28 07:52 | NUR ---
PHYSICAL THERAPY CO-SIGN I approve of the Physical Therapy notes written above. Katya Salazar PT
== END 2020-07-27 14:05 | disposition other institution (70) | DRG 682 ==
LOC: ICCU 14:38 → 5E 14:38 → ICCU 07-20 01:17 → 5E 07-23 17:57
PROVIDERS: Hospitalist; Internal Medicine; Internal Medicine Gastroenterology; Internal Medicine Nephrology; Registered Nurse; ADMIT Family Medicine; ATTEND Family Medicine
PROC: 02HV33Z Insertion of Infusion Device into Superior Vena Cava, Percutaneous Approach (ICD-10-PCS; principal; 2020-07-21)
PROC: 0DH63UZ Insertion of Feeding Device into Stomach, Percutaneous Approach (ICD-10-PCS; 2020-07-26)
DX: N17.0 Acute kidney failure with tubular necrosis (principal); G93.41 Metabolic encephalopathy; E87.0 Hyperosmolality and hypernatremia; I27.82 Chronic pulmonary embolism; N39.0 Urinary tract infection, site not specified; Z68.44 Body mass index [BMI] 60.0-69.9, adult; N18.31 Chronic kidney disease, stage 3a; F32.9 Major depressive disorder, single episode, unspecified; Z20.828 Contact with and (suspected) exposure to other viral communicable diseases; R62.7 Adult failure to thrive; E87.8 Other disorders of electrolyte and fluid balance, not elsewhere classified; F41.9 Anxiety disorder, unspecified; E78.2 Mixed hyperlipidemia; I25.10 Atherosclerotic heart disease of native coronary artery without angina pectoris; F03.90 Unspecified dementia, unspecified severity, without behavioral disturbance, psychotic disturbance, mood disturbance, and anxiety; R44.1 Visual hallucinations; E86.0 Dehydration; E83.39 Other disorders of phosphorus metabolism; R13.19 Other dysphagia; Z82.49 Family history of ischemic heart disease and other diseases of the circulatory system; Z88.8 Allergy status to other drugs, medicaments and biological substances; Z79.899 Other long term (current) drug therapy

== ENCOUNTER 2021-05-29 12:57 | Inpatient (IN) | payer MEDICARE, OTHER ==
[~2021-05-29] VITALS: Ht 162.6 cm; Wt 65.0 kg
[~2021-05-29 12:57] MED LIST changes: +MULTIVITAMINS1 EAC6 PO; +SODIUM IV
[2021-05-29 13:18] VITALS: BP 104/64
[2021-05-29 14:00] LABS: BILIRUBIN Negative (Negative); BLOOD 2+ (Negative); CLARITY Cloudy (Clear); COLOR Dark Yellow (Yellow); GLUCOSE Negative (Negative); KETONE Trace (Negative); LEUKO ESTERASE 2+ (Negative); NITRITE Positive (Negative)
[2021-05-29 14:13] LABS: BASO % 0.3 % (0.0-1.0); EOS % 0.4 % (1.0-4.0); HEMATOCRIT 42.6 % (37.0-47.0); LYMPH # 1.4 10*3/uL (1.3-4.4); LYMPH % 14.2 % (27.0-41.0); MEAN CORPUSCULAR HGB 29.2 pg (27.0-31.0); MEAN CORPUSCULAR HGB CONC 31.7 g/dl (33.0-37.0); MEAN PLATELET VOLUME 11.8 fl (9.6-12.3); MONO % 9.9 % (3.0-9.0); NEUT # 7.2 10*3/uL (2.3-7.9); NEUT % 74.9 % (47.0-73.0); PLATELET COUNT AUTOMATED 275 10*3/uL (130-400); RED BLOOD COUNT 4.63 10*6/uL (4.10-5.10); RED CELL DISTRI WIDTH 14.2 % (0-14.5); WHITE BLOOD COUNT 9.6 10*3/uL (4.8-10.8)
[2021-05-29 14:14] LABS: BACTERIA 4+; CALCIUM OXALATE CRYSTALS 1+; EPITHELIAL CELLS 0-2
[2021-05-29 14:31] LABS: ALBUMIN 3.6 gm/dl (3.1-4.5); ALKALINE PHOSPHATASE 170 U/L (45-117); BUN 22 mg/dl (7-24); CHLORIDE 112 mmol/L (98-107); CREATININE 1.08 mg/dL (0.55-1.02); POTASSIUM 3.6 mmol/L (3.5-5.1); SGOT/AST 13 IU/L (3-35); SGPT/ALT 22 U/L (12-78); SODIUM 143 mmol/L (136-145); TOTAL PROTEIN 7.5 gm/dL (6.4-8.2)
[2021-05-29 14:33] LABS: TROPONIN I < 0.015 ng/ml (<0.045)
[2021-05-29 16:23] VITALS: BP 102/55
[2021-05-29 20:04] VITALS: BP 140/80
[2021-05-29 20:20] VITALS: BP 116/61
[2021-05-30] VITALS: BP 114/62
[2021-05-30] MEDS ORDERED: LATU60TA PO (03:17)
[2021-05-30 06:05] LABS: BASO % 0.5 % (0.0-1.0); EOS # 0.1 10*3/uL (0.0-0.4); EOS % 1.2 % (1.0-4.0); HEMATOCRIT 40.5 % (37.0-47.0); LYMPH # 1.8 10*3/uL (1.3-4.4); LYMPH % 23.7 % (27.0-41.0); MEAN CELL VOLUME 94.4 fl (81.0-99.0); MEAN CORPUSCULAR HGB 28.9 pg (27.0-31.0); MEAN CORPUSCULAR HGB CONC 30.6 g/dl (33.0-37.0); MEAN PLATELET VOLUME 11.8 fl (9.6-12.3); MONO # 0.9 10*3/uL (0.1-1.0); MONO % 12.4 % (3.0-9.0); NEUT # 4.7 10*3/uL (2.3-7.9); NEUT % 61.7 % (47.0-73.0); PLATELET COUNT AUTOMATED 223 10*3/uL (130-400); RED BLOOD COUNT 4.29 10*6/uL (4.10-5.10); RED CELL DISTRI WIDTH 14.2 % (0-14.5); WHITE BLOOD COUNT 7.6 10*3/uL (4.8-10.8)
[2021-05-30 06:14] LABS: ALBUMIN 3.1 gm/dl (3.1-4.5); BUN 17 mg/dl (7-24); CHLORIDE 115 mmol/L (98-107); CHOLESTEROL 166 mg/dL (<200); CREATININE 0.84 mg/dL (0.55-1.02); POTASSIUM 3.5 mmol/L (3.5-5.1); SGOT/AST 12 IU/L (3-35); SGPT/ALT 17 U/L (12-78); SODIUM 145 mmol/L (136-145); TOTAL PROTEIN 6.4 gm/dL (6.4-8.2); TRIGLYCERIDES 137 mg/dl (<150)
[2021-05-30 06:16] LABS: ALKALINE PHOSPHATASE 152 U/L (45-117); LDL CHOLESTEROL 115 mg/dL (9-159)
[2021-05-30 07:40] LABS: VITAMIN D, 25-HYDROXY 48.3 ng/mL (30-100)
[2021-05-30 08:00] VITALS: BP 133/58
[2021-05-30] MEDS ORDERED: NITROSTAT0.4 MG SL (10:52)
[2021-05-30 12:00] VITALS: BP 139/62
[2021-05-30 16:00] VITALS: BP 135/68
[2021-05-30 20:00] VITALS: BP 136/72
[2021-05-31] VITALS: BP 137/64
[2021-05-31 07:05] LABS: BASO % 0.6 % (0.0-1.0); EOS # 0.1 10*3/uL (0.0-0.4); EOS % 1.6 % (1.0-4.0); HEMATOCRIT 42.6 % (37.0-47.0); LYMPH # 1.6 10*3/uL (1.3-4.4); LYMPH % 22.1 % (27.0-41.0); MEAN CELL VOLUME 93.6 fl (81.0-99.0); MEAN CORPUSCULAR HGB 28.4 pg (27.0-31.0); MEAN CORPUSCULAR HGB CONC 30.3 g/dl (33.0-37.0); MONO # 0.8 10*3/uL (0.1-1.0); MONO % 11.1 % (3.0-9.0); NEUT # 4.5 10*3/uL (2.3-7.9); NEUT % 64.3 % (47.0-73.0); PLATELET COUNT AUTOMATED 223 10*3/uL (130-400); RED BLOOD COUNT 4.55 10*6/uL (4.10-5.10)
[2021-05-31 07:17] LABS: BUN 10 mg/dl (7-24); CHLORIDE 118 mmol/L (98-107); CREATININE 0.73 mg/dL (0.55-1.02); POTASSIUM 3.6 mmol/L (3.5-5.1); SODIUM 148 mmol/L (136-145)
[2021-05-31 08:00] VITALS: BP 132/60
[2021-05-31 12:00] VITALS: BP 166/78
[2021-05-31 16:00] VITALS: BP 163/84
[2021-05-31 20:00] VITALS: BP 142/69
[2021-06-01] VITALS: BP 123/67
[2021-06-01 08:00] VITALS: BP 132/63
[2021-06-01 12:00] VITALS: BP 147/65
[2021-06-01 16:00] VITALS: BP 135/67
[2021-06-01 20:00] VITALS: BP 147/68
[2021-06-02] VITALS: BP 117/63
[2021-06-02 08:00] VITALS: BP 137/69
[2021-06-02 12:00] VITALS: BP 125/80
[2021-06-02 16:00] VITALS: BP 141/71
[2021-06-02 20:00] VITALS: BP 132/64
[2021-06-03] VITALS: BP 128/67
[2021-06-03 06:29] LABS: BASO % 0.5 % (0.0-1.0); EOS # 0.2 10*3/uL (0.0-0.4); EOS % 2.1 % (1.0-4.0); HEMATOCRIT 43.4 % (37.0-47.0); LYMPH # 1.6 10*3/uL (1.3-4.4); LYMPH % 20.8 % (27.0-41.0); MEAN CELL VOLUME 91.8 fl (81.0-99.0); MEAN CORPUSCULAR HGB CONC 31.6 g/dl (33.0-37.0); MONO # 0.9 10*3/uL (0.1-1.0); MONO % 11.8 % (3.0-9.0); NEUT % 64.4 % (47.0-73.0); PLATELET COUNT AUTOMATED 232 10*3/uL (130-400); RED BLOOD COUNT 4.73 10*6/uL (4.10-5.10); RED CELL DISTRI WIDTH 14.1 % (0-14.5); WHITE BLOOD COUNT 7.7 10*3/uL (4.8-10.8)
[2021-06-03 06:47] LABS: BUN 8 mg/dl (7-24); CHLORIDE 116 mmol/L (98-107); CREATININE 0.73 mg/dL (0.55-1.02); POTASSIUM 3.4 mmol/L (3.5-5.1); SODIUM 148 mmol/L (136-145)
[2021-06-03 08:00] VITALS: BP 131/72
[2021-06-03 12:00] VITALS: BP 151/66
[2021-06-03 16:00] VITALS: BP 125/72
[2021-06-03 20:00] VITALS: BP 100/64
[2021-06-04] VITALS: BP 119/53
[2021-06-04 08:00] VITALS: BP 144/75
[2021-06-04 09:11] LABS: BUN 11 mg/dl (7-24); CHLORIDE 114 mmol/L (98-107); CREATININE 0.85 mg/dL (0.55-1.02); POTASSIUM 3.9 mmol/L (3.5-5.1); SODIUM 146 mmol/L (136-145)
[2021-06-04 12:00] VITALS: BP 140/78
[2021-06-04 20:00] VITALS: BP 134/53
[2021-06-05] VITALS: BP 101/50
[2021-06-05 08:00] VITALS: BP 118/60
[2021-06-05 12:00] VITALS: BP 108/60
[2021-06-05 16:00] VITALS: BP 110/48
[2021-06-05 19:58] VITALS: BP 123/65
== END 2021-06-05 21:36 | DRG 70 ==
LOC: ED 12:57 → 5E 15:05 → EDHOLD 15:05 → 5E 19:55
PROVIDERS: Family Medicine; Hospitalist; Internal Medicine; ADMIT Internal Medicine; ATTEND Internal Medicine
DX: G93.41 Metabolic encephalopathy (principal); N17.0 Acute kidney failure with tubular necrosis; N39.0 Urinary tract infection, site not specified; E87.0 Hyperosmolality and hypernatremia; F51.04 Psychophysiologic insomnia; F51.01 Primary insomnia; B96.20 Unspecified Escherichia coli [E. coli] as the cause of diseases classified elsewhere; R31.9 Hematuria, unspecified; E87.8 Other disorders of electrolyte and fluid balance, not elsewhere classified; F25.9 Schizoaffective disorder, unspecified; R26.2 Difficulty in walking, not elsewhere classified; I25.10 Atherosclerotic heart disease of native coronary artery without angina pectoris; Z88.8 Allergy status to other drugs, medicaments and biological substances; Z82.49 Family history of ischemic heart disease and other diseases of the circulatory system; Z79.82 Long term (current) use of aspirin; Z79.899 Other long term (current) drug therapy